=== PATIENT | female | born 1950 | race Caucasian/White ===

== ENCOUNTER 2018-03-01 11:06 | Emergency (ER) | payer OTHER ==
[2018-03-01 11:13] VITALS: TEMP 98.2; BMI 36.1
--- NOTE | 2018-03-01 11:21 | PDOC ---
History of Present Illness - History of Present Illness Initial Comments: 03/01/18 11:46 Ms. Salguero is a 67 yo female w/ pmh of Asthma, HTN, and Hypothyroid who presents for evaluation of 2 week history of left knee pain. She reports she was recently evaluated by Dr. Anne who scheduled her for an MRI next week however she decided to come in today to see if she could get one "while I am here." Ms. Salguero also describes a 2 night history of brief chest pain relieved by deep breathing. She has no pain at this time. The patient denies shortness of breath, headache and dizziness. Denies fever, chills, nausea, vomit, diarrhea and constipation. Denies dysuria, frequency, urgency and hematuria. Allergies: Amoxicillin, Penicillins <Flaco Antoine - Last Filed: 03/01/18 11:46> <Abhijit Elizabeth - Last Filed: 03/01/18 15:07> - General Chief Complaint: Chest Pain Stated Complaint: LT SWOLLEN KNEE Time Seen by Provider: 03/01/18 11:20 Past History - Past Medical History Asthma: Yes Cardiac Disorders: Yes (BLOCKAGE IN ARTERY 60%/ 5yrs ago At [facility]) COPD: No Hypercholesterolemia: Yes Kidney Stones: Yes Thyroid Disease: Yes - Surgical History Abdominal Surgery: No Appendectomy: No Cardiac Surgery: No Cholecystectomy: No Gastric Stapling: No Orthopedic Surgery: Yes - Suicide/Smoking/Psychosocial Hx Smoking Status: Yes Smoking History: Former smoker Have you smoked in the past 12 months: No Number of Cigarettes Smoked Daily: 0 If you are a former smoker, when did you quit?: 20 YRS Information on smoking cessation initiated: No Hx Alcohol Use: No Drug/Substance Use Hx: No Substance Use Type: None Hx Substance Use Treatment: No <Flaco Antoine - Last Filed: 03/01/18 11:46> <Abhijit Elizabeth - Last Filed: 03/01/18 15:07> - Past Medical History Allergies/Adverse Reactions: Allergies Allergy/AdvReac Type Severity Reaction Status Date / Time amoxicillin [Amoxicillin] Allergy Severe Rash Verified 03/01/18 11:07 Penicillins Allergy Severe Rash Verified 03/01/18 11:07 BURAK AdvReac Vomiting Uncoded 03/01/18 11:07 POLLOCK AdvReac Vomiting Uncoded 03/01/18 11:07 Home Medications: Ambulatory Orders Albuterol 2.5/Ipratropium 0.5 [Duoneb -] 1 neb IH QID 11/04/15 Amlodipine Besylate [Norvasc -] 5 mg PO DAILY 11/04/15 Aspirin [ASA -] 81 mg PO DAILY 11/04/15 Levothyroxine [Synthroid -] 88 mcg PO DAILY 11/04/15 Albuterol 0.083% Nebulizer Teresa [Ventolin 0.083% Nebulizer Soln -] 1 amp NEB Q4H PRN #1 amp 11/07/15 Review of Systems - Review of Systems Comments:: 03/01/18 12:10 GENERAL/CONSTITUTIONAL: No fever or chills. No weakness. HEAD, EYES, EARS, NOSE AND THROAT: No change in vision. No ear pain or discharge. No sore throat. CARDIOVASCULAR: +Intermittent, brief chest pain as described. No shortness of breath RESPIRATORY: No cough, wheezing, or hemoptysis. GASTROINTESTINAL: No nausea, vomiting, diarrhea or constipation. GENITOURINARY: No dysuria, frequency, or change in urination. MUSCULOSKELETAL: No joint or muscle swelling or pain. No neck or back pain. SKIN: No rash NEUROLOGIC: No headache, vertigo, loss of consciousness, or change in strength/ sensation. ENDOCRINE: No increased thirst. No abnormal weight change HEMATOLOGIC/LYMPHATIC: No anemia, easy bleeding, or history of blood clots. ALLERGIC/IMMUNOLOGIC: No hives or skin allergy. <Flaco Antoine - Last Filed: 03/01/18 11:46> *Physical Exam - Vital Signs Last Vital Signs Temp Pulse Resp BP Pulse Ox 98.2 F 77 18 165/105 100 03/01/18 11:07 03/01/18 11:07 03/01/18 11:07 03/01/18 11:07 03/01/18 11:07 - Physical Exam Comments: 03/01/18 12:10 GENERAL: Awake, alert, and fully oriented, in no acute distress HEAD: No signs of trauma, normocephalic, atraumatic EYES: PERRLA, EOMI, sclera anicteric, conjunctiva clear ENT: Auricles normal inspection, hearing grossly normal, nares patent, oropharynx clear without exudates. Moist mucosa NECK: Normal ROM, supple, no lymphadenopathy, JVD, or masses LUNGS: No distress, speaks full sentences, clear to auscultation bilaterally HEART: Regular rate and rhythm, normal S1 and S2, no murmurs, rubs or gallops, peripheral pulses normal and equal bilaterally. ABDOMEN: Soft, nontender, normoactive bowel sounds. No guarding, no rebound. No masses EXTREMITIES: +Left knee tender to palpation. Otherwise normal inspection, normal range of motion, no edema. No clubbing or cyanosis. NEUROLOGICAL: Cranial nerves II through XII grossly intact. Normal speech, normal gait, no focal sensorimotor deficits SKIN: Warm, Dry, normal turgor, no rashes or lesions noted. <Flaco Antoine - Last Filed: 03/01/18 11:46> - Vital Signs Last Vital Signs Temp Pulse Resp BP Pulse Ox 98.2 F 78 17 155/89 98 03/01/18 11:07 03/01/18 14:26 03/01/18 14:26 03/01/18 14:26 03/01/18 14:26 <Abhijit Elizabeth - Last Filed: 03/01/18 15:07> ED Treatment Course - LABORATORY CBC & Chemistry Diagram: 03/01/18 12:25 03/01/18 12:25 - ADDITIONAL ORDERS Additional order review: Laboratory Results 03/01/18 12:25 Sodium 140 Potassium 4.7 Chloride 102 Carbon Dioxide 29 Anion Gap 9 BUN 15 Creatinine 0.6 Creat Clearance w eGFR > 60 Random Glucose 86 Calcium 9.5 Total Bilirubin 0.4 AST 32 ALT 45 Alkaline Phosphatase 81 Creatine Kinase 171 Creatine Kinase Index 1.9 CK-MB (CK-2) 3.38 Troponin I < 0.02 Total Protein 7.9 Albumin 3.8 03/01/18 12:25 RBC 5.11 MCV 83.2 MCHC 32.8 RDW 16.6 H MPV 8.0 Neutrophils % 62.0 Lymphocytes % 27.4 D Monocytes % 6.9 Eosinophils % 2.6 D Basophils % 1.1 D - Medications Given in the ED: ED Medications Discontinued Medications Generic Name Dose Route Start Last Admin Trade Name Freq PRN Reason Stop Dose Admin Tramadol HCl 50 mg 03/01/18 12:12 03/01/18 12:21 Ultram - PO 03/01/18 12:13 50 mg ONCE ONE Administration <Abhijit Elizabeth - Last Filed: 03/01/18 15:07> *DC/Admit/Observation/Transfer <Flaco Antoine - Last Filed: 03/01/18 11:46> - Discharge Dispostion Decision to Admit order: No <Abhijit Elizabeth - Last Filed: 03/01/18 15:07> Diagnosis at time of Disposition: Knee pain, left Qualifiers: Chronicity: chronic Qualified Code(s): M25.562 - Pain in left knee; G89.29 - Other chronic pain Chest pain Qualifiers: Chest pain type: unspecified Qualified Code(s): R07.9 - Chest pain, unspecified - Discharge Dispostion Disposition: HOME Condition at time of disposition: Stable - Referrals Referrals: Tish Negrete MD [Primary Care Provider] - Forrest Marr MD [Staff Physician] - Eldon Anne MD [Staff Physician] - - Patient Instructions Printed Discharge Instructions: DI for Atypical Chest Pain, DI for Knee Pain Additional Instructions: Return to the emergency department immediately with ANY new, persistent or worsening symptoms. You MUST call and follow up with your doctor tomorrow for further evaluation of your symptoms. Results were discussed with you. Please make sure your doctor reviews the results of your emergency evaluation. If you had any xrays during your visit, it was read preliminarily by myself, a Radiologist will review it and if there are any additional findings we will call you. Print Language: TELUGU
--- NOTE | 2018-03-01 12:05 | PDOC ---
Attending Attestation - Resident Resident Name: Flaco Antoine - ED Attending Attestation I have performed the following: I have examined & evaluated the patient, The case was reviewed & discussed with the resident, I agree w/resident's findings & plan, Exceptions are as noted - HPI HPI: 03/01/18 15:01 67y F hx of asthma, htn, hypothyofism presents with complaint of L sided knee pain for several weeks. Pt went to urgent care and then went to dr. valdez for evaluation an dplan was an outpatient MRI, however pt came to the ED to see if she could get one. Pt also endorsed some chest pain the past 2 nights approx 11pm, lasting approx 5-10 min, relieved with stretching, no assoicated sob, diaphoresis, n/v. pt endorss some exertional cp for the past several years - typically afte rwalking up 1 flight of stairs or carrying heavy things or shovelling snow, but this has been stable, she has followed up with dr. scott for this and had a stress test last year that was neg. pt dnies any fever/chills, cough, hemoptysis, calf pain, recent injuries/falls, numbness/tinglign/weakness, abd pain, back pain, headache, dizziness. GENERAL: The patient is awake, alert, and fully oriented, Nontoxic - in no acute distress. HEAD: Normocephalic, atraumatic. EYES: extraocular movements intact, sclera anicteric, conjunctiva clear. ENT: Normal voice, Moist mucous membranes. NECK: Normal range of motion, supple LUNGS: Breath sounds equal, clear to auscultation bilaterally. No wheezes, no rhonchi, no rales. HEART: Regular rate and rhythm, normal S1 and S2 without murmur, rub or gallop. ABDOMEN: Soft, nontender, normoactive bowel sounds. No guarding, no rebound. . No CVA tenderness EXTREMITIES: Normal range of motion, no edema. no focal bony tenderness of L knee, neg homas NEUROLOGICAL: No facial assymetry, Normal speech, PSYCH: Normal mood, normal affect. SKIN: Warm, Dry, normal turgor, Suspect possible arthritis, will have the patient follow-up with orthopedics for further evaluation of her knee. Patient's chest pain seems atypical we'll obtain troponin 1 and ekg as pain >6 hrs ago trop x 1 neg, ekg wnl will dc with ortho and card fu return precautions were discussed Heart Score/ECG Review - ECG Impressions Comment:: 03/01/18 15:06 Twelve-lead EKG was performed and reviewed by me. There is normal sinus rhythm with a normal rate. Rate of 71 left axis deviation Abnormal R wave progression
[2018-03-01] MEDS ORDERED: traMADol HCL 50 MG TABLET PO ONE (12:12)
[2018-03-01] MEDS ORDERED: traMADol HCL 50 MG TABLET ONE (12:18)
[2018-03-01 12:31] LABS: BASO % 1.1 % (0-2.0); EOS % 2.6 % (0-4.5); HEMATOCRIT 42.5 % (32.4-45.2); HEMOGLOBIN 13.9 GM/dL (10.7-15.3); LYMPH % 27.4 % (8-40); MCH 27.3 pg (25.7-33.7); MCHC 32.8 g/dl (32.0-36.0); MEAN CELL VOLUME 83.2 fl (80-96); MONO % 6.9 % (3.8-10.2); PLATELET COUNT 239 K/MM3 (134-434); RBC 5.11 M/mm3 (3.60-5.2); RDW 16.6 % (11.6-15.6); WHITE BLOOD COUNT 9.2 K/mm3 (4.0-10.0)
[2018-03-01 13:02] LABS: CHLORIDE 102 mmol/L (98-107); POTASSIUM 4.7 mmol/L (3.5-5.1); SODIUM 140 mmol/L (136-145)
[2018-03-01 13:23] LABS: ALBUMIN 3.8 g/dl (3.4-5.0); ALK PHOS 81 U/L (45-117); ANION GAP 9 (8-16); BILIRUBIN,TOTAL 0.4 mg/dL (0.2-1.0); BLOOD UREA NITROGEN 15 mg/dL (7-18); CALCIUM 9.5 mg/dL (8.5-10.1); CO2 29 mmol/L (21-32); CREATININE 0.6 mg/dL (0.55-1.02); GLUCOSE,RANDOM 86 mg/dL (74-106); SGOT/AST 32 U/L (15-37); SGPT/ALT 45 U/L (12-78); TOT PROT 7.9 g/dl (6.4-8.2)
[2018-03-01 14:27] VITALS: BP 155/89; PULSE 78
--- NOTE | 2018-03-01 16:10 | EKG ---
Test Reason : Blood Pressure : / mmHG Vent. Rate : 071 BPM Atrial Rate : 071 BPM P-R Int : 160 ms QRS Dur : 092 ms QT Int : 412 ms P-R-T Axes : 059 -42 019 degrees QTc Int : 447 ms NORMAL SINUS RHYTHM WITH SINUS ARRHYTHMIA LEFT AXIS DEVIATION INFERIOR INFARCT (CITED ON OR BEFORE 02-MAY-2006) ANTERIOR INFARCT (CITED ON OR BEFORE 06-AUG-2002) ABNORMAL ECG WHEN COMPARED WITH ECG OF 01-MAR-2018 11:19, PREVIOUS ECG HAS UNDETERMINED RHYTHM, NEEDS REVIEW Confirmed by JANETT RAMIREZ MD ([id number]) on 03/01/2018 4:10:31 PM Referred By: Confirmed By:JANETT RAMIREZ MD
--- NOTE | 2018-03-02 10:30 | EKG ---
Test Reason : Blood Pressure : / mmHG Vent. Rate : 071 BPM Atrial Rate : 220 BPM P-R Int : 158 ms QRS Dur : 096 ms QT Int : 402 ms P-R-T Axes : 061 -42 028 degrees QTc Int : 436 ms POOR DATA QUALITY, INTERPRETATION MAY BE ADVERSELY AFFECTED NORMAL SINUS RHYTHM LEFT AXIS DEVIATION INFERIOR INFARCT (CITED ON OR BEFORE 02-MAY-2006) ANTERIOR INFARCT (CITED ON OR BEFORE 06-AUG-2002) ABNORMAL ECG Confirmed by JENNIFER IVEY MD ([id number]) on 03/02/2018 10:30:08 AM Referred By: Confirmed By:JENNIFER IVEY MD
== END 2018-03-01 15:17 | disposition home or self-care (01) ==
LOC: JER 11:06
DX: M25.562 Pain in left knee (principal); R07.89 Other chest pain; I10 Essential (primary) hypertension; E78.00 Pure hypercholesterolemia, unspecified; J45.909 Unspecified asthma, uncomplicated; E03.9 Hypothyroidism, unspecified; Z87.891 Personal history of nicotine dependence
CPT/HCPCS: 36415; 80053; 82550; 82553; 84484; 85025; 93005; 93010; 99284-25

== ENCOUNTER 2018-03-24 06:02 | Inpatient (IN) | payer OTHER ==
[2018-03-24 06:25] VITALS: BMI 35.2
[2018-03-24] MEDS ORDERED: ACETAMINOPHEN 325 MG TABLET (FP) ONE (06:28)
[2018-03-24] MEDS ORDERED: SODIUM CHLORIDE 0.9% 1000 ML INFUS.BAG IV STA (06:35)
--- NOTE | 2018-03-24 06:47 | PDOC ---
History of Present Illness - General Chief Complaint: Pain Stated Complaint: ABD PAIN Time Seen by Provider: 03/24/18 06:34 History Source: Patient Exam Limitations: No Limitations - History of Present Illness Initial Comments: This is a 67 YOF with h/o HTN, HLD, CAD, kidney stones, asthma, and hypothyroidism who p/w non-radiating constant right>left lower abdominal cramping which occasionally becomes severe and has twinges of sharper epigastric pain for the past three days. This pain is alongside malaise, constipation, abdominal distentions, and inability to pass gas for the past three days, nausea, fever since last night. She describes not being able to have a bowel movement for several days until this morning when she had three small loose stools which were non-black and non-bloody. She tried Milk of Magnesia last night for the constipation, and Tylenol for the fever. She has never had symptoms like this before in her life. Her PCP is Dr. Negrete, technical project manager is Dr. Marr, orthopedist is Dr. Anne. Past History - Past Medical History Allergies/Adverse Reactions: Allergies Allergy/AdvReac Type Severity Reaction Status Date / Time amoxicillin [Amoxicillin] Allergy Severe Rash Verified 03/24/18 06:24 Penicillins Allergy Severe Rash Verified 03/24/18 06:24 BURAK AdvReac Vomiting Uncoded 03/24/18 06:24 POLLOCK AdvReac Vomiting Uncoded 03/24/18 06:24 Home Medications: Ambulatory Orders Albuterol 2.5/Ipratropium 0.5 [Duoneb -] 1 neb IH QID 11/04/15 Amlodipine Besylate [Norvasc -] 5 mg PO DAILY 11/04/15 Aspirin [ASA -] 81 mg PO DAILY 11/04/15 Levothyroxine [Synthroid -] 88 mcg PO DAILY 11/04/15 Albuterol 0.083% Nebulizer Teresa [Ventolin 0.083% Nebulizer Soln -] 1 amp NEB Q4H PRN #1 amp 11/07/15 Asthma: Yes Cardiac Disorders: Yes (BLOCKAGE IN ARTERY 60%/ 5yrs ago At [facility]) COPD: No Hypercholesterolemia: Yes Kidney Stones: Yes Thyroid Disease: Yes - Surgical History Abdominal Surgery: No Appendectomy: No Cardiac Surgery: No Cholecystectomy: No Gastric Stapling: No Orthopedic Surgery: Yes - Suicide/Smoking/Psychosocial Hx Smoking Status: Yes Smoking History: Former smoker Have you smoked in the past 12 months: No Number of Cigarettes Smoked Daily: 0 If you are a former smoker, when did you quit?: 20yrs ago Information on smoking cessation initiated: No Hx Alcohol Use: No Drug/Substance Use Hx: No Substance Use Type: None Hx Substance Use Treatment: No Review of Systems - Review of Systems Able to Perform ROS?: Yes Constitutional: Yes: Chills, Fever, Malaise. No: Unexplained wgt Loss HEENTM: No: Nose Congestion, Throat Pain Respiratory: No: Cough, Shortness of Breath Cardiac (ROS): No: Chest Pain, Palpitations ABD/GI: Yes: Abdominal Distended, Constipated, Nausea, Other (lower abdominal pain/cramping, obstipation). No: Diarrhea, Rectal Bleeding, Vomiting : No: Burning, Dysuria Musculoskeletal: No: Back Pain, Neck Pain Integumentary: No: Bruising, Rash Neurological: No: Headache, Numbness, Tingling, Weakness, Dizziness Endocrine: No: Unexplained Weight Gain, Unexplained Weight Loss *Physical Exam - Vital Signs Last Vital Signs Temp Pulse Resp BP Pulse Ox 102.0 F H 120 H 18 168/84 97 03/24/18 06:23 03/24/18 06:23 03/24/18 06:23 03/24/18 06:23 03/24/18 06:23 - Physical Exam General Appearance: Yes: Nourished, Appropriately Dressed, Other (alert, oriented, uncomfortable appearing adult female who answers questions appropriately). No: Apparent Distress HEENT: positive: EOMI, Normal Voice, Hearing Grossly Normal, Other (right cataract, dry mucous membranes). negative: Scleral Icterus (R), Scleral Icterus (L), Nasal Congestion Neck: positive: Trachea midline, Supple. negative: Tender, Rigid Respiratory/Chest: positive: Lungs Clear, Normal Breath Sounds, Wheezing (mild bilateral expiratory wheezes). negative: Respiratory Distress, Crackles, Rhonchi, Stridor Cardiovascular: positive: Regular Rhythm, Regular Rate, S1, S2. negative: Edema , JVD, Murmur Gastrointestinal/Abdominal: positive: Normal Bowel Sounds, Tender (Diffuse lower abdominal ttp including McBurney's point), Soft. negative: Organomegaly, Pulsatile Mass, Guarding Musculoskeletal: positive: Normal Inspection. negative: CVA Tenderness, Decreased Range of Motion, Vertebral Tenderness Extremity: positive: Normal Capillary Refill, Normal Inspection, Normal Range of Motion. negative: Tender, Cyanosis Integumentary: positive: Normal Color, Dry, Warm. negative: Erythema, Diaphoresis, Rash, Bruising Neurologic: positive: industrial custodian II-XII NML intact (grossly), Fully Oriented, Alert, Normal Mood/Affect, Normal Response, Motor Strength 01/27 ED Treatment Course - LABORATORY CBC & Chemistry Diagram: 03/25/18 10:38 03/25/18 06:00 - RADIOLOGY Radiology Studies Ordered: Category Date Time Status CHEST X-RAY PORTABLE* [RAD] Stat Radiology 03/24/18 06:35 Ordered Medical Decision Making - Medical Decision Making 03/24/18 07:02 Adult female Pt p/w diffuse lower abdominal pain, constipation until small diarrhea x3 this AM, obstipation, nausea, fever, malaise. Initial Vital Signs Temp Pulse Resp BP Pulse Ox 102.0 F H 120 H 18 168/84 97 03/24/18 06:23 03/24/18 06:23 03/24/18 06:23 03/24/18 06:23 03/24/18 06:23 Exam: uncomfortable, abdomen distended, diffuse lower abdominal ttp incl McBurney's point, no guarding or rigidity. DDX IBNLT: UTI/pyelonephritis, renal colic, appendicitis, colitis, SBO, bowel ischemia, bowel perforation, biliary obstruction, cholecystitis, cholangitis, constipation, ACS, AAA/AD, malignancy, hernia, cholecystitis, pancreatitis, gastritis, PUD, regional ileitis (Crohns disease), musculoskeletal, etc. W/U ordered: CBCD CMP Mg Coags T&S VBG Cardiac panel Lactate BCx UA UCx Lipase EKG CXR CTAP w/ IV and PO TX ordered: IVF, Ofirmev, Zofran. Patient's care is endorsed to Dr. Antoine at the end of my shift. *DC/Admit/Observation/Transfer Diagnosis at time of Disposition: SIRS (systemic inflammatory response syndrome), Nausea Abdominal pain Qualifiers: Abdominal location: unspecified location Qualified Code(s): R10.9 - Unspecified abdominal pain Constipation Qualifiers: Constipation type: unspecified constipation type Qualified Code(s): K59.00 - Constipation, unspecified Appendicitis Qualifiers: Appendicitis type: acute appendicitis Acute appendicitis type: with localized peritonitis Qualified Code(s): K35.3 - Acute appendicitis with localized peritonitis - Discharge Dispostion Condition at time of disposition: Guarded Decision to Admit order: Yes - Referrals - Patient Instructions - Post Discharge Activity
[2018-03-24] MEDS ORDERED: ONDANSETRON 4 MG/2 ML VIAL IVPUSH ONE (06:48)
--- NOTE | 2018-03-24 07:02 | PDOC ---
*Physical Exam - Vital Signs Last Vital Signs Temp Pulse Resp BP Pulse Ox 102.0 F H 120 H 18 168/84 97 03/24/18 06:23 03/24/18 06:23 03/24/18 06:23 03/24/18 06:23 03/24/18 06:23 ED Treatment Course - LABORATORY CBC & Chemistry Diagram: 03/24/18 06:45 03/24/18 06:45 Medical Decision Making - Medical Decision Making 03/24/18 07:[address] Coburn for further evaluation. 03/24/18 10:38 Patient is a 67 yo female w/ pmh of HTN, HLD, CAD, nephrolithiasis, asthma, and hypothyroidism who presents for evaluation of right sided abdominal pain for the last 3 days. Patient had concurrent constipation and inability to pass gas for 3 days before taking milk of magnesia and having episode of small loose stool this morning. Currently patient pending CT abdomen/pelvis w/ PO and IV contrast. 4mg IV morphine given for pain control. 03/24/18 11:48 Patient noted to have acute appendicitis on CT. Gen Surgery and PCP consulted for admission / surgery consult. Levo/Flagyl started for treatment. 03/24/18 12:[address] Mcmanus (gen surg) who will evaluate. 03/24/18 13:[address] Bearden for admission. Patient admitted for further evaluation. *DC/Admit/Observation/Transfer Diagnosis at time of Disposition: SIRS (systemic inflammatory response syndrome), Nausea Abdominal pain Qualifiers: Abdominal location: unspecified location Qualified Code(s): R10.9 - Unspecified abdominal pain Constipation Qualifiers: Constipation type: unspecified constipation type Qualified Code(s): K59.00 - Constipation, unspecified Appendicitis Qualifiers: Appendicitis type: acute appendicitis Acute appendicitis type: unspecified acute appendicitis type Qualified Code(s): K35.80 - Unspecified acute appendicitis - Discharge Dispostion Decision to Admit order: Yes - Referrals Referrals: Tish Negrete MD [Primary Care Provider] - - Patient Instructions - Post Discharge Activity
--- NOTE | 2018-03-24 07:16 | PDOC ---
Attending Attestation - Resident Resident Name: Flaco Antoine - ED Attending Attestation I have performed the following: I have examined & evaluated the patient, The case was reviewed & discussed with the resident, I agree w/resident's findings & plan, Exceptions are as noted - HPI HPI: 03/24/18 07:28 67y F hx of htn, hl, cad, kidney stones, asthma, hypothyroidism, presents with lower abdominal pain that is cramping in nature x 3 days, associated with nausea w/o vmiting. originally associated with constipation but no better after she had some milk of magnesia and finally had a BM. Pt developed a fever lsat night. She denies any diarrhea, dysuria, but notes some vagial pain as she wipes. Denies any cough, sob, cp, back pain, headache. GENERAL: The patient is awake, alert, and fully oriented, Nontoxic - in no acute distress. HEAD: Normocephalic, atraumatic. EYES: extraocular movements intact, sclera anicteric, conjunctiva clear. ENT: Normal voice, Moist mucous membranes. NECK: Normal range of motion, supple LUNGS: Breath sounds equal, clear to auscultation bilaterally. No wheezes, no rhonchi, no rales. HEART: Regular rate and rhythm, normal S1 and S2 without murmur, rub or gallop. ABDOMEN: slightly distended, mild lower abdominal tenderness R>L, no rebound/ guarding, no CVA tenderness EXTREMITIES: Normal range of motion, no edema. no calf tenderness NEUROLOGICAL: No facial assymetry, Normal speech, PSYCH: Normal mood, normal affect. SKIN: Warm, Dry, normal turgor, ddx: appendicitis, obstruction, uti will ck ct abdomen, lab work, ua will reassess - Physicial Exam PE: 03/25/18 09:25 see above - Medical Decision Making 03/24/18 11:[address] noted for appendicitis will treat with abx, and consult surgery 03/24/18 13:[address] Bearden - agree with admission for further managment Case discussed in detail with admitting physician including history, physical exam and ancillary studies. Admitting physician has assumed care for the patient, will follow all pending diagnostics and will complete the evaluation and treatment. Heart Score/ECG Review - ECG Impressions Comment:: 03/24/18 11:22 Twelve-lead EKG was performed and reviewed by me. There is normal sinus rhythm with a rate of 107 Left axis deviation Q waves in the inferior leads Abnormal R wave progression Oh significant changes when compared with prior EKG from mar 01 2018
[2018-03-24 07:17] LABS: BASO % 0.5 % (0-2.0); EOS % 0.2 % (0-4.5); HEMATOCRIT 39.3 % (32.4-45.2); HEMOGLOBIN 13.1 GM/dL (10.7-15.3); LYMPH % 6.3 % (8-40); MCH 27.3 pg (25.7-33.7); MCHC 33.3 g/dl (32.0-36.0); MEAN PLT VOLUME 8.2 fl (7.5-11.1); MONO % 7.6 % (3.8-10.2); NEUT % 85.4 % (42.8-82.8); PLATELET COUNT 200 K/MM3 (134-434); RBC 4.79 M/mm3 (3.60-5.2); RDW 16.3 % (11.6-15.6); WHITE BLOOD COUNT 21.1 K/mm3 (4.0-10.0)
[2018-03-24 07:18] LABS: URINE APPEARANCE CLEAR; URINE BILIRUBIN NEGATIVE (<2.0 mg/dL); URINE COLOR YELLOW; URINE GLUCOSE (UA) NEGATIVE (NEGATIVE); URINE KETONE TRACE (NEGATIVE); URINE LEUK ESTERASE NEGATIVE (NEGATIVE); URINE NITRITE NEGATIVE (NEGATIVE); URINE UROBILINOGEN NEGATIVE mg/dL (0.2-1.0)
[2018-03-24 07:20] LABS: VENOUS PC02 36.4 mmHg (38-52); VENOUS PH 7.48 (7.32-7.42); VENOUS PO2 57.7 mmHg (28-48)
[2018-03-24] MEDS ORDERED: ACETAMINOPHEN 500 MG TABLET (FP) PO ONE (07:23)
[2018-03-24 07:26] LABS: URINE PROTEIN 1+ (NEGATIVE)
[2018-03-24 07:27] LABS: EPI CELLS RARE /HPF (FEW); URINE MUCUS RARE
[2018-03-24 07:39] LABS: INR 1.06 (0.82-1.09)
[2018-03-24 07:42] LABS: ACTIVATED PTT 27.6 SECONDS (25.2-36.5)
[2018-03-24 07:50] LABS: ALBUMIN 3.2 g/dl (3.4-5.0); ANION GAP 9 (8-16); BILIRUBIN,TOTAL 0.8 mg/dL (0.2-1.0); BLOOD UREA NITROGEN 10 mg/dL (7-18); CALCIUM 8.4 mg/dL (8.5-10.1); CHLORIDE 99 mmol/L (98-107); CO2 25 mmol/L (21-32); CREATININE 0.7 mg/dL (0.55-1.02); GLUCOSE,RANDOM 134 mg/dL (74-106); SGPT/ALT 21 U/L (12-78); SODIUM 133 mmol/L (136-145); TOT PROT 7.4 g/dl (6.4-8.2)
[2018-03-24 07:53] LABS: ALK PHOS 86 U/L (45-117)
[2018-03-24 07:56] LABS: LIPASE 96 U/L (73-393)
[2018-03-24 07:57] LABS: POTASSIUM 3.8 mmol/L (3.5-5.1); SGOT/AST 23 U/L (15-37)
[2018-03-24] MEDS ORDERED: morphine CARPU-JECT 4 MG/1 ML DISP.SYRIN IVPUSH ONE (08:10)
[2018-03-24] MEDS ORDERED: morphine SULFATE 4 MG/ML VIAL ONE (08:13)
--- NOTE | 2018-03-24 09:29 | EKG ---
Test Reason : Blood Pressure : / mmHG Vent. Rate : 107 BPM Atrial Rate : 107 BPM P-R Int : 170 ms QRS Dur : 086 ms QT Int : 350 ms P-R-T Axes : 051 -43 019 degrees QTc Int : 467 ms SINUS TACHYCARDIA POSSIBLE LEFT ATRIAL ENLARGEMENT LEFT AXIS DEVIATION CANNOT RULE OUT INFERIOR INFARCT , AGE UNDETERMINED POOR R WAVE PROGRESSION ABNORMAL ECG Confirmed by JENNIFER IVEY MD ([id number]) on 03/24/2018 9:28:42 AM Referred By: Confirmed By:JENNIFER IVEY MD
[2018-03-24] MEDS ORDERED: ONDANSETRON 4 MG/2 ML VIAL IVPUSH PRN ×2 (13:28→17:18)
[2018-03-24] MEDS ORDERED: LACTATED RINGERS SOLUTION 1,000 ML IV SCH (13:30)
[2018-03-24] MEDS ORDERED: ACETAMINOPHEN 1000 MG/100 ML VIAL (NON FORMULARY) IVPB ONE (13:35)
[2018-03-24] MEDS ORDERED: MIDAZOLAM HCL 2 MG/2 ML SINGLE DOSE VIAL ONE (13:37)
[2018-03-24] MEDS ORDERED: ONDANSETRON 4 MG/2 ML VIAL ONE (13:41)
[2018-03-24] MEDS ORDERED: DEXAMETHASONE SOD PHOSPHATE 4 MG/1 ML VIAL ONE (13:41)
[2018-03-24] MEDS ORDERED: KETOROLAC TROMETHAMINE 30 MG/1 ML VIAL ONE (13:41)
[2018-03-24] MEDS ORDERED: ROCURONIUM BROMIDE 50 MG/5 ML VIAL ONE ×2 (13:42→15:34)
[2018-03-24] MEDS ORDERED: ACETAMINOPHEN INJECTION 100 ML IVPB ONE (13:44)
--- NOTE | 2018-03-24 13:45 | CONSULT ---
Consult Consult Specialty:: General Surgery Reason for Consultation:: Acute appendicitis - History of Present Illness Chief Complaint: Abdominal pain with nausea vomiting and diarrhea. History of Present Illness: I was askked to evaluate this 67 year old female with a PMHx sig for HTN, Asthma , Hypothyroidism presented to ED c/o approx. 24 hours of right sided abdominal pain associated with nausea and vomiting. Originally she was c/o constipation which evolved into diarrhea. Denies other G.I./G.U. symptoms. In ED she was found to be febrile to 102 F, tachycardic with normal BP and an elevated WBC with significant RLQ tenderness. She responded to fluids and a CT scan was ordered which revealed and advanced acute appendicitis, with severe ramon-appendiceal fat stranding and a dilated and circumstantially inflamed and thickened appendix, no abscess, no free air, no other sig. findings except gallstones but otherwise a normal gallbladder. - History Source History Provided By: Patient Limitations to Obtaining History: No Limitations - Past Medical History Cardio/Vascular: Yes: HTN Pulmonary: Yes: Asthma Gastrointestinal: Yes: Constipation Endocrine: Yes: Hypothyroidism - Past Surgical History Past Surgical History: Yes: None - Alcohol/Substance Use Hx Alcohol Use: No - Smoking History Smoking history: Former smoker Have you smoked in the past 12 months: No Aproximately how many cigarettes per day: 0 If you are a former smoker, when did you quit?: 20yrs ago - Social History ADL: Independent History of Recent Travel: No Home Medications - Allergies Allergies/Adverse Reactions: Allergies Allergy/AdvReac Type Severity Reaction Status Date / Time amoxicillin [Amoxicillin] Allergy Severe Rash Verified 03/24/18 06:24 Penicillins Allergy Severe Rash Verified 03/24/18 06:24 BURAK AdvReac Vomiting Uncoded 03/24/18 06:24 POLLOCK AdvReac Vomiting Uncoded 03/24/18 06:24 - Home Medications Home Medications: Ambulatory Orders Albuterol 2.5/Ipratropium 0.5 [Duoneb -] 1 neb IH QID 11/04/15 Amlodipine Besylate [Norvasc -] 5 mg PO DAILY 11/04/15 Aspirin [ASA -] 81 mg PO DAILY 11/04/15 Levothyroxine [Synthroid -] 88 mcg PO DAILY 11/04/15 Albuterol 0.083% Nebulizer Teresa [Ventolin 0.083% Nebulizer Soln -] 1 amp NEB Q4H PRN #1 amp 11/07/15 Family Disease History - Family Disease History Family Disease History: Heart Disease: Mother, [place]: Father Review of Systems - Review of Systems Constitutional: reports: Chills, Fever Eyes: denies: Blurred Vision, Photophobia HENT: denies: Difficult Swallowing, Throat Pain Neck: denies: Decreased ROM, Pain on Movement Respiratory: reports: Exercise Intolerance. denies: Wheezing Gastrointestinal: reports: Abdominal Pain (Right sided worse in RLQ), Diarrhea, Nausea, Vomiting. denies: Constipation Genitourinary: denies: Burning, Dysuria Musculoskeletal: denies: Back Pain, Joint Swelling Integumentary: denies: Bruising, Pruritis Neurological: denies: Change in Speech, Confusion Endocrine: denies: Excessive Sweating, Unexplained Weight Gain Hematology/Lymphatic: denies: Easily Bruised Psychiatric: denies: Hallucinations Physical Exam Vital Signs: Vital Signs Temperature 99.7 F H 03/24/18 08:20 Pulse Rate 98 H 03/24/18 08:20 Respiratory Rate 18 03/24/18 06:23 Blood Pressure 103/60 03/24/18 08:20 O2 Sat by Pulse Oximetry (%) 97 03/24/18 06:23 Constitutional: Yes: Well Nourished, No Distress, Calm, Obese Eyes: Yes: Conjunctiva Clear, EOM Intact HENT: Yes: Atraumatic, Normocephalic Neck: Yes: Supple, Trachea Midline Cardiovascular: Yes: Regular Rate and Rhythm. No: Tachycardia Respiratory: Yes: Regular, CTA Bilaterally Gastrointestinal: Yes: Normal Bowel Sounds, Abdomen, Obese, Tenderness ( Significant RLQ tenderness with localized rebound), Tenderness, Rebound ( localized to RLQ). No: Hernia ...Rectal Exam: No: Deferred Renal/: No: Bladder Distention, Solorio Present Musculoskeletal: No: Joint Swelling, Muscle Weakness Extremities: No: Cool, Cyanosis Edema: Yes (slight Bilat.) Integumentary: No: Erythema, Rash Neurological: Yes: Alert, Oriented Labs: CBC, BMP 03/24/18 06:45 03/24/18 06:45 Imaging - Results Chest X-ray: Report Reviewed (No acute chest pathology) Cat Scan: Image Reviewed (CT scan reviewed by me personally revealed and advanced acute appendicitis, with severe ramon-appendiceal fat stranding and a dilated and circumstantially inflamed and thickened appendix, no abscess, no free air, no other sig. findings except gallstones but otherwise a normal gallbladder) EKG: Report Reviewed Problem List - Problems (1) Appendicitis Assessment/Plan: 67 yo vida with clinical and radiological evidence of advanced acute appendicitis. Vitals now stabilized with fluid resuscitation, IV Abx given. Will take to OR for emergent laparoscopic appendectomy. Discussed with patient risks, benefits and alternatives of laparoscopic possible open ectomy, including but not limited to bleeding, infection, injury to adjacent structures, leak or injury, intraabdominal abscess, need for further procedures, ; alternatives include antibiotics, delayed or no surgery - risks of this include failure of nonoperative therapy, perforation, sepsis, recurrence, . Patient desires to proceed with operation - will take to OR for above. Informed consent signed for same. Code(s): K37 - UNSPECIFIED APPENDICITIS Qualifiers: Appendicitis type: acute appendicitis Acute appendicitis type: with localized peritonitis Qualified Code(s): K35.3 - Acute appendicitis with localized peritonitis (2) Abdominal pain Assessment/Plan: Abdominal pain somewhat improved with IV paind medication in the ED. Abdomen still with sig RLQ tenderness and localized rebound all c/w acute appendicits. Patient to go to OR emergently for lap appendectomy. Code(s): R10.9 - UNSPECIFIED ABDOMINAL PAIN Qualifiers: Abdominal location: unspecified location Qualified Code(s): R10.9 - Unspecified abdominal pain (3) Nausea Assessment/Plan: Patient c/o severe nausea resolved with antiemetic medication given in the ED Code(s): R11.0 - NAUSEA (4) Vomiting and diarrhea Assessment/Plan: Patient c/o vomiting and diarhhea now resolved in ED. Code(s): R11.10 - VOMITING, UNSPECIFIED; R19.7 - DIARRHEA, UNSPECIFIED
[2018-03-24] MEDS ORDERED: BUPIVACAINE HCL/PF 0.5% (5MG/ML) 10 ML VIAL ONE ×2 (14:27→16:19)
[2018-03-24] MEDS ORDERED: PROPOFOL 20 ML ONE (15:30)
[2018-03-24] MEDS ORDERED: GLYCOPYRROLATE 0.2 MG/1 ML VIAL ONE (16:13)
[2018-03-24] MEDS ORDERED: NEOSTIGMINE METHYLSULFATE 0.5 MG/ML - 10 ML MDV ONE (16:13)
[2018-03-24] MEDS ORDERED: BENZOIN/ALOE VERA/STORAX/TOLU 58 ML BOTTLE ONE (16:25)
[2018-03-24] MEDS ORDERED: ACETAMINOPHEN 1000 MG/100 ML VIAL (NON FORMULARY) IVPB PRN (16:36)
--- NOTE | 2018-03-24 16:47 | OP ---
Operative Note - Note: Operative Date: 03/24/18 Pre-Operative Diagnosis: acute appendicits Operation: laparoscopic appendectomy Findings: gangrenous perforated appendicits with ramon-appendiceal abscess Post-Operative Diagnosis: Other (perforated appendicits with abscess) Surgeon: Keyshawn Mcmanus Air [employer] Officer: James Ha Anesthesiologist/PROJECT COACH: Forrest Oliva Anesthesia: General Specimens Removed: appendix Estimated Blood Loss (mls): 10 Drains, Volume Out (mls): 300 Fluid Volume Replaced (mls): 1,500 Operative Report Dictated: Yes
[2018-03-24] MEDS ORDERED: BUPIVACAINE HCL/PF 0.5% (5MG/ML) 10 ML VIAL IJ ONE (16:49)
[2018-03-24] MEDS: LACTATED RINGERS SOLUTION 1,000 ML/1,000 ML INFUS.BAG IV SCH (18:20)
[2018-03-24] MEDS: ACETAMINOPHEN 1000 MG/100 ML VIAL (NON FORMULARY) IVPB PRN (23:05)
[2018-03-25] MEDS: LACTATED RINGERS SOLUTION 1,000 ML/1,000 ML INFUS.BAG IV SCH ×3 (05:24→20:33)
[2018-03-25] MEDS: LEVOTHYROXINE NA 88 MCG TABLET (FP) PO SCH (06:10)
[2018-03-25 07:14] LABS: BASO % 0.4 % (0-2.0); HEMATOCRIT 37.3 % (32.4-45.2); HEMOGLOBIN 12.2 GM/dL (10.7-15.3); LYMPH % 8.6 % (8-40); MCH 27.3 pg (25.7-33.7); MCHC 32.6 g/dl (32.0-36.0); MEAN CELL VOLUME 83.7 fl (80-96); MEAN PLT VOLUME 8.6 fl (7.5-11.1); PLATELET COUNT 191 K/MM3 (134-434); RBC 4.45 M/mm3 (3.60-5.2); RDW 16.3 % (11.6-15.6); WHITE BLOOD COUNT 18.7 K/mm3 (4.0-10.0)
[2018-03-25 07:51] LABS: CHLORIDE 102 mmol/L (98-107); POTASSIUM 4.3 mmol/L (3.5-5.1); SODIUM 140 mmol/L (136-145)
[2018-03-25 07:58] LABS: ALBUMIN 2.6 g/dl (3.4-5.0); ALK PHOS 72 U/L (45-117); ANION GAP 9 (8-16); BILIRUBIN,TOTAL 0.6 mg/dL (0.2-1.0); BLOOD UREA NITROGEN 9 mg/dL (7-18); CALCIUM 8.3 mg/dL (8.5-10.1); CO2 29 mmol/L (21-32); CREATININE 0.9 mg/dL (0.55-1.02); GLUCOSE,RANDOM 121 mg/dL (74-106); SGOT/AST 14 U/L (15-37); SGPT/ALT 17 U/L (12-78); TOT PROT 6.7 g/dl (6.4-8.2)
[2018-03-25 10:54] LABS: BASO % 0.4 % (0-2.0); HEMATOCRIT 37.7 % (32.4-45.2); HEMOGLOBIN 12.1 GM/dL (10.7-15.3); LYMPH % 9.4 % (8-40); MCH 26.7 pg (25.7-33.7); MCHC 32.2 g/dl (32.0-36.0); MEAN CELL VOLUME 82.9 fl (80-96); MEAN PLT VOLUME 8.5 fl (7.5-11.1); MONO % 5.1 % (3.8-10.2); NEUT % 85.1 % (42.8-82.8); PLATELET COUNT 203 K/MM3 (134-434); RBC 4.54 M/mm3 (3.60-5.2); RDW 15.9 % (11.6-15.6)
[2018-03-25] MEDS: ACETAMINOPHEN 1000 MG/100 ML VIAL (NON FORMULARY) IVPB PRN ×2 (11:16→20:25)
[2018-03-25 11:41] LABS: GLUCOSE,RANDOM 127 mg/dl (74-106)
[2018-03-25 11:42] LABS: ALBUMIN 2.6 g/dl (3.5-5.0); ANION GAP 8 (8-16); BILIRUBIN,TOTAL 0.5 mg/dl (0.2-1.0); BLOOD UREA NITROGEN 9 mg/dl (7-18); CALCIUM 8.1 mg/dl (8.4-10.2); CHLORIDE 103 mmol/L (98-107); CO2 28 mmol/L (22-28); CREATININE 0.8 mg/dl (0.6-1.3); POTASSIUM 3.9 mmol/L (3.5-5.1); SGOT/AST 11 U/L (10-42); SODIUM 139 mmol/L (136-145); TOT PROT 6.5 g/dl (6.4-8.3)
[2018-03-25 11:43] LABS: ALK PHOS 73 U/L (32-92); SGPT/ALT 17 U/L (10-40)
--- NOTE | 2018-03-25 13:25 | PN ---
Progress Note (short form) - Note Progress Note: Patient is POD#1 s/p laparoscopic appendectomy fora perforated gangrenous appendix with ramon-appendiceal abscess. Overnight patient c/o of "bloating' but denies nausea, no vomiting, no BM's. Today patient c/o incisional pain, severe "bloating", not passing flatus/BM's but tolerating clears. Vitals reveal slight tacycardia and low grade fever to 99F. Patient using IS well and ambulating without issues. Exam reveals distended abdomen, hypoactive BS's, wound dressings dry intact, only scant pedal edema. On exam of LE's I noticed swelling and calor of the left upper leg in distinct comparison to the Right LE. no tenderness. Patient denies knee pain nor thigh pain. Due to the length and difficulty of the laparoscopic surgery, patient is certainly at risk for a DVT. As the knee itself is not warm and no decrease in ROM, no pain, ambulating well, I doubt a septic knee. Will order STAT Left LE Venous Dopplers. Continue IV fluids, IV Abx, clear diet, ambulate. Problem List - Problems (1) Appendicitis Code(s): K37 - UNSPECIFIED APPENDICITIS Qualifiers: Appendicitis type: acute appendicitis Acute appendicitis type: with localized peritonitis Qualified Code(s): K35.3 - Acute appendicitis with localized peritonitis (2) Abdominal pain Code(s): R10.9 - UNSPECIFIED ABDOMINAL PAIN Qualifiers: Abdominal location: unspecified location Qualified Code(s): R10.9 - Unspecified abdominal pain (3) Nausea Code(s): R11.0 - NAUSEA (4) Vomiting and diarrhea Code(s): R11.10 - VOMITING, UNSPECIFIED; R19.7 - DIARRHEA, UNSPECIFIED
--- NOTE | 2018-03-25 14:07 | HP ---
Admitting History and Physical - Admission History of Present Illness: admitted with abdominal pain and was taken to the OR and noted to have a perforated appendix c/o bloating - Past Medical History Cardiovascular: Yes: HTN Pulmonary: Yes: Asthma Gastrointestinal: Yes: Constipation Endocrine: Yes: Hypothyroidism - Past Surgical History Past Surgical History: Yes: None - Smoking History Smoking history: Former smoker Have you smoked in the past 12 months: No Aproximately how many cigarettes per day: 0 If you are a former smoker, when did you quit?: 20yrs ago - Alcohol/Substance Use Hx Alcohol Use: No - Social History ADL: Independent History of Recent Travel: No Home Medications - Allergies Allergies/Adverse Reactions: Allergies Allergy/AdvReac Type Severity Reaction Status Date / Time amoxicillin [Amoxicillin] Allergy Severe Rash Verified 03/24/18 06:24 Penicillins Allergy Severe Rash Verified 03/24/18 06:24 BURAK AdvReac Vomiting Uncoded 03/24/18 06:24 POLLOCK AdvReac Vomiting Uncoded 03/24/18 06:24 - Home Medications Home Medications: Ambulatory Orders Albuterol 2.5/Ipratropium 0.5 [Duoneb -] 1 neb IH QID 11/04/15 Amlodipine Besylate [Norvasc -] 5 mg PO DAILY 11/04/15 Aspirin [ASA -] 81 mg PO DAILY 11/04/15 Levothyroxine [Synthroid -] 88 mcg PO DAILY 11/04/15 Albuterol 0.083% Nebulizer Teresa [Ventolin 0.083% Nebulizer Soln -] 1 amp NEB Q4H PRN #1 amp 11/07/15 Family Disease History - Family Disease History Family Disease History: Heart Disease: Mother, [place]: Father Review of Systems - Review of Systems Cardiovascular: denies: Chest Pain Respiratory: denies: SOB Gastrointestinal: reports: Abdominal Pain, Bloating Neurological: reports: No Symptoms Physical Examination Vital Signs: Vital Signs Temperature 99.6 F 03/25/18 06:00 Pulse Rate 105 H 03/25/18 06:00 Respiratory Rate 20 03/25/18 06:00 Blood Pressure 120/61 03/25/18 06:00 O2 Sat by Pulse Oximetry (%) 98 03/24/18 19:30 Cardiovascular: Yes: Regular Rate and Rhythm Respiratory: Yes: Regular, CTA Bilaterally Gastrointestinal: Yes: Abdomen, Obese, Distention, Hypoactive Bowel Sounds Edema: No Labs: CBC, BMP 03/25/18 10:38 03/25/18 10:38 Problem List - Problems (1) Perforated appendicitis Assessment/Plan: -Iv abx -Surgical follow up -ID consult Code(s): K35.2 - ACUTE APPENDICITIS WITH GENERALIZED PERITONITIS (2) Abdominal pain Code(s): R10.9 - UNSPECIFIED ABDOMINAL PAIN Qualifiers: Abdominal location: unspecified location Qualified Code(s): R10.9 - Unspecified abdominal pain (3) ASHD (arteriosclerotic heart disease) Assessment/Plan: -no cp -monitor -EKG Code(s): I25.10 - ATHSCL HEART DISEASE OF [place] CORONARY ARTERY W/O ANG PCTRS (4) Asthma Code(s): J45.909 - UNSPECIFIED ASTHMA, UNCOMPLICATED Qualifiers: Asthma severity: unspecified severity Asthma complication type: uncomplicated Qualified Code(s): J45.909 - Unspecified asthma, uncomplicated (5) Hypertension Assessment/Plan: Vital Signs Period Temp Pulse Resp BP Sys/Dai Pulse Ox Last 24 Hr 98.1 F-99.6 F 75-105 16-20 94-120/48-65 97-100 Code(s): I10 - ESSENTIAL (PRIMARY) HYPERTENSION
--- NOTE | 2018-03-25 16:56 | PN ---
Progress Note (short form) - Note Progress Note: Anesthesia postop note POD#1, S/P Appendectomy with perforated appendicitis under general anesthesia. Pat seen and examined. No complaints. Ambulating tolerating clear liquids. VSS. No apparent post anesthesia complications. signed off.
[2018-03-26] MEDS: ACETAMINOPHEN 1000 MG/100 ML VIAL (NON FORMULARY) IVPB PRN (02:32)
[2018-03-26] MEDS: LEVOTHYROXINE NA 88 MCG TABLET (FP) PO SCH (06:01)
--- NOTE | 2018-03-26 10:41 | EKG ---
Test Reason : Blood Pressure : / mmHG Vent. Rate : 089 BPM Atrial Rate : 089 BPM P-R Int : 152 ms QRS Dur : 090 ms QT Int : 370 ms P-R-T Axes : 066 -36 023 degrees QTc Int : 450 ms NORMAL SINUS RHYTHM LEFT AXIS DEVIATION CANNOT RULE OUT INFERIOR INFARCT (CITED ON OR BEFORE 02-MAY-2006) ABNORMAL ECG WHEN COMPARED WITH ECG OF 24-MAR-2018 07:17, VENT. RATE HAS DECREASED Confirmed by BA GARCIA, OG ([id number]) on 03/26/2018 10:40:50 AM Referred By: Marilu TUBBS Confirmed By:OG COSME MD
--- NOTE | 2018-03-26 11:46 | PN ---
Progress Note, Physician Chief Complaint: ID Day 2 post op gangrenous appendix perforated Complains of severe abd pain and distention - Current Medication List Current Medications: Active Medications Lactated Ringer's (Lactated Ringers Solution) 1,000 ml in 1,000 mls @ 100 mls/ hr IV ASDIR JOSE Last Admin: 03/25/18 20:33 Dose: 100 mls/hr Levofloxacin (Levaquin 500 Mg Premixed Ivpb -) 500 mg in 100 mls @ 100 mls/hr IVPB DAILY JOSE; Protocol Last Admin: 03/26/18 09:52 Dose: 100 mls/hr Metronidazole (Flagyl 500mg Premixed Ivpb -) 500 mg in 100 mls @ 100 mls/hr IVPB Q6H-IV JOSE Last Admin: 03/26/18 09:52 Dose: 100 mls/hr Levothyroxine Sodium (Synthroid -) 88 mcg PO ACBK JOSE Last Admin: 03/26/18 06:01 Dose: 88 mcg Ondansetron HCl (Zofran Injection) 4 mg IVPUSH Q6H PRN PRN Reason: NAUSEA AND/OR VOMITING - Objective Vital Signs: Vital Signs Temperature 98.6 F 03/26/18 05:50 Pulse Rate 84 03/26/18 05:50 Respiratory Rate 20 03/26/18 05:50 Blood Pressure 135/76 03/26/18 05:50 O2 Sat by Pulse Oximetry (%) 94 L 03/25/18 21:00 Constitutional: Yes: No Distress Cardiovascular: Yes: S1, S2 Respiratory: Yes: WNL, Regular, CTA Bilaterally Gastrointestinal: Yes: Distention, Tenderness Edema: No Labs: CBC, BMP 03/25/18 10:38 03/25/18 10:38 INR, PTT INR 1.06 (0.82-1.09) 03/24/18 06:45 Problem List - Problems (1) Peritonitis Code(s): K65.9 - PERITONITIS, UNSPECIFIED (2) Appendicitis Code(s): K37 - UNSPECIFIED APPENDICITIS Qualifiers: Appendicitis type: acute appendicitis Acute appendicitis type: with localized peritonitis Qualified Code(s): K35.3 - Acute appendicitis with localized peritonitis (3) Perforated appendicitis Code(s): K35.2 - ACUTE APPENDICITIS WITH GENERALIZED PERITONITIS (4) Penicillin allergy Code(s): Z88.0 - ALLERGY STATUS TO PENICILLIN Assessment/Plan Microbiology 03/24/18 06:45 Urine - Urine Clean Catch Urine Culture - Final NO GROWTH OBTAINED 03/24/18 08:00 Blood - Peripheral Venous Blood Culture - Preliminary NO GROWTH OBTAINED AFTER 48 HOURS, INCUBATION TO CONTINUE FOR 3 DAYS. 03/24/18 08:00 Blood - Peripheral Venous Blood Culture - Preliminary NO GROWTH OBTAINED AFTER 48 HOURS, INCUBATION TO CONTINUE FOR 3 DAYS. Laboratory Tests 03/25/18 03/25/18 10:38 10:38 WBC 18.0 H Plt Count 203 Creat Clearance w eGFR > 60 Assessment Perforated gangrenous appendicitis peritonitis Abd distended and tender Plan Broaden coverage beyond the quinolone as she is ill Also PCN allergy considered Clindamycin and Aztreonam Familia GARCIA
--- NOTE | 2018-03-26 14:28 | CONS ---
DATE OF CONSULTATION: DATE OF DICTATION: 03/26/2018 HISTORY: This is a 67-year-old female who I am asked to see day 2 laparoscopic appendectomy for acute gangrenous perforated appendicitis. She has a history of hypertension, asthma, and hypothyroidism and had presented to the emergency room on March 24 with a 24-hour history of right-sided abdominal pain associated with nausea and vomiting. She had a CT scan done, which recognized advanced acute appendicitis with severe periappendiceal fat stranding and a dilated and circumstantially inflamed and thickened appendix without obvious abscess or free air. She was taken to the operating room and laparoscopically had an appendectomy, and I am asked to see her now on levofloxacin and metronidazole for further antibiotic management. Postoperative, she appears to be in a great deal of pain secondary to abdominal discomfort. She also notes that her abdomen is severely distended. She also has fever and a persistent leukocytosis of 18,000. ALLERGIES: PENICILLIN many years ago with a facial rash. HOME MEDICATIONS: Albuterol, amlodipine, aspirin, levothyroxine. SOCIAL HISTORY: Former smoker. . Mother of 3 children. 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 Recent travel to [facility] 4 weeks ago. Denies alcohol abuse. FAMILY HISTORY: Reviewed and noncontributory. REVIEW OF SYSTEMS: Respiratory: No cough or shortness of breath. Cardiac: No chest pain, palpitations, syncope. Gastrointestinal: Abdominal distention and pain as noted. Genitourinary: No dysuria, hematuria. PHYSICAL EXAMINATION: General: Reveals an alert woman in no acute distress sitting in a chair. Vital Signs: Her temperature is 98.8, pulse 100, blood pressure 132/80, respirations 20. Neck: Supple. Lungs: Clear to auscultation. Heart: S1, S2. Regular rhythm without audible murmur. Abdomen: With hypoactive bowel sounds. Markedly abdominal distention with diffuse tenderness. Extremities: Without edema. DIAGNOSTIC DATA: The white count was 18.8 yesterday. Hemoglobin 12.1, platelets 203. Chemistries within normal limits except albumin 2.6. Urinalysis with 32 RBCs, 1 WBC. Two sets of blood cultures collected March 24, no growth. Urine culture, no growth. Admitting chest x-ray shows no acute infiltrate seen. ASSESSMENT: A 67-year-old female with perforated gangrenous appendix day 2 postoperative, history of PENICILLIN allergy noted, persistent intermittent fever and leukocytosis with abdominal distention and severe tenderness. Concern for peritonitis and possible evolving intra-abdominal abscess. PLAN: Empiric therapy with clindamycin and aztreonam. Obtain a CRP to help monitor response to therapy. Should she not improve, will need repeat CAT scan imaging in the days to come, but would defer this to her general surgeon. MARYAM ROBINS M.D. [id number]
--- NOTE | 2018-03-26 16:14 | PN ---
Progress Note, Physician Chief Complaint: awake alert sitting up mild-mod distress - Current Medication List Current Medications: Active Medications Acetaminophen (Tylenol -) 500 mg PO Q6H PRN PRN Reason: FEVER Lactated Ringer's (Lactated Ringers Solution) 1,000 ml in 1,000 mls @ 100 mls/ hr IV ASDIR JOSE Last Admin: 03/25/18 20:33 Dose: 100 mls/hr Clindamycin Phosphate (Cleocin 900 Mg Premix Ivpb -) 900 mg in 50 mls @ 100 mls /hr IVPB Q8H-IV JOSE; Protocol Aztreonam 2 gm/ Dextrose 100 mls @ 100 mls/hr IVPB Q8H-IV JOSE; Protocol Levothyroxine Sodium (Synthroid -) 88 mcg PO ACBK JOSE Last Admin: 03/26/18 06:01 Dose: 88 mcg Ondansetron HCl (Zofran Injection) 4 mg IVPUSH Q6H PRN PRN Reason: NAUSEA AND/OR VOMITING - Objective Vital Signs: Vital Signs Temperature 99.3 F 03/26/18 13:47 Pulse Rate 92 H 03/26/18 13:47 Respiratory Rate 16 03/26/18 13:47 Blood Pressure 126/73 03/26/18 13:47 O2 Sat by Pulse Oximetry (%) 91 L 03/26/18 09:00 Constitutional: Yes: Mild Distress Eyes: Yes: WNL HENT: Yes: WNL Neck: Yes: WNL Cardiovascular: Yes: WNL Respiratory: Yes: WNL Gastrointestinal: Yes: Tenderness Genitourinary: Yes: WNL Musculoskeletal: Yes: WNL Extremities: Yes: WNL Edema: Yes Edema: LLE: 1+, RLE: 1+ Peripheral Pulses WNL: Yes Integumentary: Yes: WNL Wound/Incision: Yes: Dressing Dry and Intact Neurological: Yes: WNL ...Motor Strength: WNL Psychiatric: Yes: WNL Labs: CBC, BMP 03/25/18 10:38 03/25/18 10:38 INR, PTT INR 1.06 (0.82-1.09) 03/24/18 06:45 Problem List - Problems (1) Abdominal pain Code(s): R10.9 - UNSPECIFIED ABDOMINAL PAIN Qualifiers: Abdominal location: unspecified location Qualified Code(s): R10.9 - Unspecified abdominal pain (2) Appendicitis Code(s): K37 - UNSPECIFIED APPENDICITIS Qualifiers: Appendicitis type: acute appendicitis Acute appendicitis type: with localized peritonitis Qualified Code(s): K35.3 - Acute appendicitis with localized peritonitis (3) Constipation Code(s): K59.00 - CONSTIPATION, UNSPECIFIED Qualifiers: Constipation type: unspecified constipation type Qualified Code(s): K59.00 - Constipation, unspecified (4) Peritonitis Code(s): K65.9 - PERITONITIS, UNSPECIFIED Assessment/Plan IV ABX DVT PROPHYLAXIS OOB TO CHAIR INCENTIVE SPIROMETRY NPO
[2018-03-26] MEDS: ACETAMINOPHEN 500 MG TABLET (FP) PO PRN (17:34)
[2018-03-26] MEDS: AZTREONAM 2 GM in DEXTROSE 5%-WATER 100 ML IVPB SCH (17:35)
[2018-03-26] MEDS: CLINDAMYCIN 900 MG PREMIX IVPB 900 MG/50 ML BAG IVPB SCH (17:38)
[2018-03-26] MEDS: LACTATED RINGERS SOLUTION 1,000 ML/1,000 ML INFUS.BAG IV SCH ×2 (17:38→21:10)
--- NOTE | 2018-03-26 19:18 | PN ---
Progress Note, Physician Chief Complaint: Patient denies flatus, no "real BM", still with incisional pain. History of Present Illness: I was asked to evaluate this 67 year old female with a PMHx sig for HTN, Asthma , Hypothyroidism presented to ED c/o approx. 24 hours of right sided abdominal pain associated with nausea and vomiting. Originally she was c/o constipation which evolved into diarrhea. Denies other G.I./G.U. symptoms. In ED she was found to be febrile to 102 F, tachycardic with normal BP and an elevated WBC with significant RLQ tenderness. She responded to fluids and a CT scan was ordered which revealed and advanced acute appendicitis, with severe ramon-appendiceal fat stranding and a dilated and circumstantially inflamed and thickened appendix, no abscess, no free air, no other sig. findings except gallstones but otherwise a normal gallbladder. - Current Medication List Current Medications: Active Medications Acetaminophen (Tylenol -) 500 mg PO Q6H PRN PRN Reason: FEVER Last Admin: 03/26/18 17:34 Dose: 500 mg Heparin Sodium (Porcine) (Heparin -) 5,000 unit SQ BID JOSE Lactated Ringer's (Lactated Ringers Solution) 1,000 ml in 1,000 mls @ 100 mls/ hr IV ASDIR JOSE Last Admin: 03/26/18 17:38 Dose: 100 mls/hr Clindamycin Phosphate (Cleocin 900 Mg Premix Ivpb -) 900 mg in 50 mls @ 100 mls /hr IVPB Q8H-IV JOSE; Protocol Last Admin: 03/26/18 17:38 Dose: 100 mls/hr Aztreonam 2 gm/ Dextrose 100 mls @ 100 mls/hr IVPB Q8H-IV JOSE; Protocol Last Admin: 03/26/18 17:35 Dose: 100 mls/hr Levothyroxine Sodium (Synthroid -) 88 mcg PO ACBK JOSE Last Admin: 03/26/18 06:01 Dose: 88 mcg Ondansetron HCl (Zofran Injection) 4 mg IVPUSH Q6H PRN PRN Reason: NAUSEA AND/OR VOMITING - Objective Vital Signs: Vital Signs Temperature 99.6 F 03/26/18 18:44 Pulse Rate 92 H 03/26/18 18:44 Respiratory Rate 18 03/26/18 18:44 Blood Pressure 145/84 03/26/18 18:44 O2 Sat by Pulse Oximetry (%) 91 L 03/26/18 09:00 Constitutional: Yes: No Distress, Obese Eyes: Yes: Conjunctiva Clear, EOM Intact HENT: Yes: Atraumatic, Normocephalic Neck: Yes: Supple, Trachea Midline Cardiovascular: Yes: Regular Rate and Rhythm. No: Tachycardia Respiratory: Yes: Regular, CTA Bilaterally. No: Wheezes Gastrointestinal: Yes: Soft, Abdomen, Obese, Tenderness (mild incisional) ...Rectal Exam: Yes: Deferred Genitourinary: No: Solorio Present, Hematuria Musculoskeletal: No: Joint Swelling Extremities: No: Calf Tenderness, Cyanosis Edema: Yes (+2 pitting L>R) Wound/Incision: Yes: Clean/Dry, Sutures Intact Neurological: Yes: Alert, Oriented Labs: CBC, BMP 03/25/18 10:38 03/25/18 10:38 INR, PTT INR 1.06 (0.82-1.09) 03/24/18 06:45 Problem List - Problems (1) Appendicitis Assessment/Plan: 67 yo female POD #2 s/p lap appendectomy for a perforated gangrenous gallbladder. Doing fairly well but with symptoms c/w a possible mild post-op ileus, which is to be expected. STAT Venous Dopplers obtained for pain swelling calor LLE>RLE. Negative for DVT. Continue IS, ambulation, regular diet. IV Abx as per ID. Code(s): K37 - UNSPECIFIED APPENDICITIS Qualifiers: Appendicitis type: acute appendicitis Acute appendicitis type: with localized peritonitis Qualified Code(s): K35.3 - Acute appendicitis with localized peritonitis (2) Abdominal pain Code(s): R10.9 - UNSPECIFIED ABDOMINAL PAIN Qualifiers: Abdominal location: unspecified location Qualified Code(s): R10.9 - Unspecified abdominal pain (3) Nausea Code(s): R11.0 - NAUSEA (4) Vomiting and diarrhea Code(s): R11.10 - VOMITING, UNSPECIFIED; R19.7 - DIARRHEA, UNSPECIFIED
[2018-03-26] MEDS: HEPARIN NA (PORCINE) 5,000 UNITS/ML 1ML VIAL SQ SCH (21:57)
[2018-03-26] MEDS ORDERED: PT OWN MED DRAWER 7, Y5N ONE (23:50)
[2018-03-27] MEDS: AZTREONAM 2 GM in DEXTROSE 5%-WATER 100 ML IVPB SCH ×3 (01:33→17:28)
[2018-03-27] MEDS: CLINDAMYCIN 900 MG PREMIX IVPB 900 MG/50 ML BAG IVPB SCH ×3 (01:33→17:28)
[2018-03-27] MEDS: LEVOTHYROXINE NA 88 MCG TABLET (FP) PO SCH (06:28)
[2018-03-27 07:11] LABS: BASO % 0.9 % (0-2.0); EOS % 0.4 % (0-4.5); HEMATOCRIT 34.9 % (32.4-45.2); HEMOGLOBIN 11.3 GM/dL (10.7-15.3); LYMPH % 11.3 % (8-40); MCHC 32.3 g/dl (32.0-36.0); MEAN CELL VOLUME 83.6 fl (80-96); MEAN PLT VOLUME 8.2 fl (7.5-11.1); MONO % 8.8 % (3.8-10.2); NEUT % 78.6 % (42.8-82.8); PLATELET COUNT 233 K/MM3 (134-434); RBC 4.18 M/mm3 (3.60-5.2); RDW 16.3 % (11.6-15.6); WHITE BLOOD COUNT 13.2 K/mm3 (4.0-10.0)
[2018-03-27 07:41] LABS: ANION GAP 9 (8-16); BLOOD UREA NITROGEN 9 mg/dL (7-18); CALCIUM 7.8 mg/dL (8.5-10.1); CHLORIDE 101 mmol/L (98-107); CO2 30 mmol/L (21-32); CREATININE 0.5 mg/dL (0.55-1.02); GLUCOSE,RANDOM 96 mg/dL (74-106); MAGNESIUM 2.2 mg/dL (1.8-2.4); POTASSIUM 3.6 mmol/L (3.5-5.1); SODIUM 140 mmol/L (136-145)
[2018-03-27] MEDS: HEPARIN NA (PORCINE) 5,000 UNITS/ML 1ML VIAL SQ SCH ×2 (10:14→21:14)
[2018-03-27] MEDS: ACETAMINOPHEN 500 MG TABLET (FP) PO PRN ×2 (13:16→21:13)
--- NOTE | 2018-03-27 15:06 | PN ---
Progress Note, Physician Chief Complaint: AWAKE ALERT FEELS BETTER DENIES FEVER AND CHILLS POOR APPETITE +FLATULENCE - Current Medication List Current Medications: Active Medications Acetaminophen (Tylenol -) 500 mg PO Q6H PRN PRN Reason: FEVER Last Admin: 03/27/18 13:16 Dose: 500 mg Heparin Sodium (Porcine) (Heparin -) 5,000 unit SQ BID JOSE Last Admin: 03/27/18 10:14 Dose: Not Given Lactated Ringer's (Lactated Ringers Solution) 1,000 ml in 1,000 mls @ 100 mls/ hr IV ASDIR JOSE Last Admin: 03/26/18 21:10 Dose: 100 mls/hr Clindamycin Phosphate (Cleocin 900 Mg Premix Ivpb -) 900 mg in 50 mls @ 100 mls /hr IVPB Q8H-IV JOSE; Protocol Last Admin: 03/27/18 10:14 Dose: 100 mls/hr Aztreonam 2 gm/ Dextrose 100 mls @ 100 mls/hr IVPB Q8H-IV JOSE; Protocol Last Admin: 03/27/18 10:14 Dose: 100 mls/hr Levothyroxine Sodium (Synthroid -) 88 mcg PO ACBK JOSE Last Admin: 03/27/18 06:28 Dose: 88 mcg Ondansetron HCl (Zofran Injection) 4 mg IVPUSH Q6H PRN PRN Reason: NAUSEA AND/OR VOMITING - Objective Vital Signs: Vital Signs Temperature 98.1 F 03/27/18 13:39 Pulse Rate 93 H 03/27/18 13:39 Respiratory Rate 17 03/27/18 13:39 Blood Pressure 137/86 03/27/18 13:39 O2 Sat by Pulse Oximetry (%) 96 03/27/18 09:00 Constitutional: Yes: Mild Distress Eyes: Yes: WNL HENT: Yes: WNL Neck: Yes: WNL Cardiovascular: Yes: WNL Respiratory: Yes: WNL Gastrointestinal: Yes: Tenderness Musculoskeletal: Yes: WNL Extremities: Yes: WNL Edema: Yes Edema: LLE: Trace, RLE: Trace Peripheral Pulses WNL: Yes Integumentary: Yes: WNL Wound/Incision: Yes: Clean/Dry Neurological: Yes: WNL ...Motor Strength: WNL Psychiatric: Yes: WNL Labs: CBC, BMP 03/27/18 06:30 03/27/18 06:30 INR, PTT INR 1.06 (0.82-1.09) 03/24/18 06:45 Problem List - Problems (1) Abdominal pain Code(s): R10.9 - UNSPECIFIED ABDOMINAL PAIN Qualifiers: Abdominal location: unspecified location Qualified Code(s): R10.9 - Unspecified abdominal pain (2) Appendicitis Code(s): K37 - UNSPECIFIED APPENDICITIS Qualifiers: Appendicitis type: acute appendicitis Acute appendicitis type: with localized peritonitis Qualified Code(s): K35.3 - Acute appendicitis with localized peritonitis (3) Constipation Code(s): K59.00 - CONSTIPATION, UNSPECIFIED Qualifiers: Constipation type: unspecified constipation type Qualified Code(s): K59.00 - Constipation, unspecified (4) Peritonitis Code(s): K65.9 - PERITONITIS, UNSPECIFIED Assessment/Plan IV ABX PER ID WBC IMPROVING TO 13 TODAY OOB TO CHAIR INCENTIVE SPIROMETRY ADVANCE DIET TOLERATED SX EVAL AND F/U APPRECIATED
--- NOTE | 2018-03-27 15:08 | PN ---
Progress Note, Physician History of Present Illness: Awake, alert Reports less abdominal pain No c/o fever/ chills Tolerating antibiotics - Current Medication List Current Medications: Active Medications Acetaminophen (Tylenol -) 500 mg PO Q6H PRN PRN Reason: FEVER Last Admin: 03/27/18 13:16 Dose: 500 mg Heparin Sodium (Porcine) (Heparin -) 5,000 unit SQ BID JOSE Last Admin: 03/27/18 10:14 Dose: Not Given Lactated Ringer's (Lactated Ringers Solution) 1,000 ml in 1,000 mls @ 100 mls/ hr IV ASDIR JOSE Last Admin: 03/26/18 21:10 Dose: 100 mls/hr Clindamycin Phosphate (Cleocin 900 Mg Premix Ivpb -) 900 mg in 50 mls @ 100 mls /hr IVPB Q8H-IV JOSE; Protocol Last Admin: 03/27/18 10:14 Dose: 100 mls/hr Aztreonam 2 gm/ Dextrose 100 mls @ 100 mls/hr IVPB Q8H-IV JOSE; Protocol Last Admin: 03/27/18 10:14 Dose: 100 mls/hr Levothyroxine Sodium (Synthroid -) 88 mcg PO ACBK JOSE Last Admin: 03/27/18 06:28 Dose: 88 mcg Ondansetron HCl (Zofran Injection) 4 mg IVPUSH Q6H PRN PRN Reason: NAUSEA AND/OR VOMITING - Objective Vital Signs: Vital Signs Temperature 98.1 F 03/27/18 13:39 Pulse Rate 93 H 03/27/18 13:39 Respiratory Rate 17 03/27/18 13:39 Blood Pressure 137/86 03/27/18 13:39 O2 Sat by Pulse Oximetry (%) 96 03/27/18 09:00 Constitutional: Yes: No Distress, Obese Cardiovascular: Yes: Regular Rate and Rhythm, S1, S2 Respiratory: Yes: CTA Bilaterally Gastrointestinal: Yes: Normal Bowel Sounds, Soft, Abdomen, Obese, Tenderness, Other (mild diffuse tenderness) Edema: No Labs: CBC, BMP 03/27/18 06:30 03/27/18 06:30 INR, PTT INR 1.06 (0.82-1.09) 03/24/18 06:45 Assessment/Plan POD #3 perforated appendix PCN allergy Continue clindamycin/ aztreonam
[2018-03-27] MEDS ORDERED: PT OWN MED DRAWER 7, Y5N ONE (17:19)
[2018-03-27] MEDS: LACTATED RINGERS SOLUTION 1,000 ML/1,000 ML INFUS.BAG IV SCH (17:29)
[2018-03-28] MEDS: LACTATED RINGERS SOLUTION 1,000 ML/1,000 ML INFUS.BAG IV SCH ×2 (02:04→17:00)
[2018-03-28] MEDS: CLINDAMYCIN 900 MG PREMIX IVPB 900 MG/50 ML BAG IVPB SCH ×3 (02:04→18:17)
[2018-03-28] MEDS: AZTREONAM 2 GM in DEXTROSE 5%-WATER 100 ML IVPB SCH ×3 (02:05→18:17)
[2018-03-28] MEDS: ACETAMINOPHEN 500 MG TABLET (FP) PO PRN ×2 (05:14→23:32)
[2018-03-28] MEDS: LEVOTHYROXINE NA 88 MCG TABLET (FP) PO SCH (06:38)
[2018-03-28 08:18] LABS: HEMATOCRIT 34.3 % (32.4-45.2); HEMOGLOBIN 11.2 GM/dL (10.7-15.3); MCH 26.9 pg (25.7-33.7); MCHC 32.5 g/dl (32.0-36.0); MEAN CELL VOLUME 82.8 fl (80-96); MEAN PLT VOLUME 7.8 fl (7.5-11.1); PLATELET COUNT 263 K/MM3 (134-434); RBC 4.14 M/mm3 (3.60-5.2); RDW 16.4 % (11.6-15.6)
--- NOTE | 2018-03-28 08:20 | PN ---
Progress Note, Physician Chief Complaint: ID Looks and feels better today Clindamycin and Aztreonam - Current Medication List Current Medications: Active Medications Acetaminophen (Tylenol -) 500 mg PO Q6H PRN PRN Reason: FEVER Last Admin: 03/28/18 05:14 Dose: 500 mg Heparin Sodium (Porcine) (Heparin -) 5,000 unit SQ BID JOSE Last Admin: 03/27/18 21:14 Dose: Not Given Lactated Ringer's (Lactated Ringers Solution) 1,000 ml in 1,000 mls @ 100 mls/ hr IV ASDIR JOSE Last Admin: 03/28/18 02:04 Dose: 100 mls/hr Clindamycin Phosphate (Cleocin 900 Mg Premix Ivpb -) 900 mg in 50 mls @ 100 mls /hr IVPB Q8H-IV JOSE; Protocol Last Admin: 03/28/18 02:04 Dose: 100 mls/hr Aztreonam 2 gm/ Dextrose 100 mls @ 100 mls/hr IVPB Q8H-IV JOSE; Protocol Last Admin: 03/28/18 02:05 Dose: 100 mls/hr Levothyroxine Sodium (Synthroid -) 88 mcg PO ACBK JOSE Last Admin: 03/28/18 06:38 Dose: 88 mcg Ondansetron HCl (Zofran Injection) 4 mg IVPUSH Q6H PRN PRN Reason: NAUSEA AND/OR VOMITING - Objective Vital Signs: Vital Signs Temperature 99.0 F 03/28/18 06:00 Pulse Rate 77 03/28/18 06:00 Respiratory Rate 18 03/28/18 06:00 Blood Pressure 149/83 03/28/18 06:00 O2 Sat by Pulse Oximetry (%) 95 03/27/18 21:00 Constitutional: Yes: Well Nourished, No Distress HENT: Yes: WNL, Atraumatic Neck: Yes: WNL, Supple Cardiovascular: Yes: Regular Rate and Rhythm, S1, S2. No: Murmur Respiratory: Yes: WNL, Regular, CTA Bilaterally Gastrointestinal: Yes: Soft, Tenderness Edema: No Labs: CBC, BMP 03/27/18 06:30 INR, PTT INR 1.06 (0.82-1.09) 03/24/18 06:45 Problem List - Problems (1) Peritonitis Code(s): K65.9 - PERITONITIS, UNSPECIFIED (2) Appendicitis Code(s): K37 - UNSPECIFIED APPENDICITIS Qualifiers: Appendicitis type: acute appendicitis Acute appendicitis type: with localized peritonitis Qualified Code(s): K35.3 - Acute appendicitis with localized peritonitis (3) Perforated appendicitis Code(s): K35.2 - ACUTE APPENDICITIS WITH GENERALIZED PERITONITIS (4) Penicillin allergy Code(s): Z88.0 - ALLERGY STATUS TO PENICILLIN Assessment/Plan Microbiology 03/24/18 06:45 Urine - Urine Clean Catch Urine Culture - Final NO GROWTH OBTAINED 03/24/18 08:00 Blood - Peripheral Venous Blood Culture - Preliminary NO GROWTH OBTAINED AFTER 72 HOURS, INCUBATION TO CONTINUE FOR 2 DAYS. 03/24/18 08:00 Blood - Peripheral Venous Blood Culture - Preliminary NO GROWTH OBTAINED AFTER 72 HOURS, INCUBATION TO CONTINUE FOR 2 DAYS. Laboratory Tests 03/25/18 03/27/18 03/27/18 10:38 06:30 06:30 WBC 18.0 H 13.2 H Hgb 11.3 Plt Count 233 BUN 9 Assessment Appendicitis with periappendiceal abscess PCN allergy Plan Looks better today Continue current antibiotics Surgical f/u ongoing Familia GARCIA
[2018-03-28 08:31] LABS: ALBUMIN 2.1 g/dl (3.4-5.0); ALK PHOS 58 U/L (45-117); ANION GAP 8 (8-16); BILIRUBIN,TOTAL 0.3 mg/dL (0.2-1.0); BLOOD UREA NITROGEN 8 mg/dL (7-18); CALCIUM 7.8 mg/dL (8.5-10.1); CHLORIDE 104 mmol/L (98-107); CO2 31 mmol/L (21-32); CREATININE 0.4 mg/dL (0.55-1.02); GLUCOSE,RANDOM 93 mg/dL (74-106); POTASSIUM 3.6 mmol/L (3.5-5.1); SGOT/AST 22 U/L (15-37); SGPT/ALT 17 U/L (12-78); SODIUM 143 mmol/L (136-145); TOT PROT 5.6 g/dl (6.4-8.2)
--- NOTE | 2018-03-28 09:06 | PN ---
Progress Note, Physician Chief Complaint: abdominal pain History of Present Illness: 67 yo female PMH obesity, HTN, Asthma, Hypothyroidism presented to ED c/o approx. 24 hours of right sided abdominal pain associated with nausea and vomiting. stable post operatively. Low grade temp 100.6. Reports having no appetite. - Current Medication List Current Medications: Active Medications Acetaminophen (Tylenol -) 500 mg PO Q6H PRN PRN Reason: FEVER Last Admin: 03/28/18 05:14 Dose: 500 mg Heparin Sodium (Porcine) (Heparin -) 5,000 unit SQ BID JOSE Last Admin: 03/27/18 21:14 Dose: Not Given Lactated Ringer's (Lactated Ringers Solution) 1,000 ml in 1,000 mls @ 100 mls/ hr IV ASDIR JOSE Last Admin: 03/28/18 02:04 Dose: 100 mls/hr Clindamycin Phosphate (Cleocin 900 Mg Premix Ivpb -) 900 mg in 50 mls @ 100 mls /hr IVPB Q8H-IV JOSE; Protocol Last Admin: 03/28/18 02:04 Dose: 100 mls/hr Aztreonam 2 gm/ Dextrose 100 mls @ 100 mls/hr IVPB Q8H-IV JOSE; Protocol Last Admin: 03/28/18 02:05 Dose: 100 mls/hr Levothyroxine Sodium (Synthroid -) 88 mcg PO ACBK JOSE Last Admin: 03/28/18 06:38 Dose: 88 mcg Ondansetron HCl (Zofran Injection) 4 mg IVPUSH Q6H PRN PRN Reason: NAUSEA AND/OR VOMITING - Objective Vital Signs: Vital Signs Temperature 99.0 F 03/28/18 06:00 Pulse Rate 77 03/28/18 06:00 Respiratory Rate 18 03/28/18 06:00 Blood Pressure 149/83 03/28/18 06:00 O2 Sat by Pulse Oximetry (%) 95 03/27/18 21:00 Vital Signs Period Temp Pulse Resp BP Sys/Dai Pulse Ox Last 24 Hr 98 F-100.6 F 77-96 17-19 130-149/82-88 95 Intake & Output 03/27/18 03/28/18 03/28/18 23:59 07:59 15:59 Intake Total 1999 1000 Balance 1999 1000 Intake: IV 1000 1000 LACTATED RINGERS SOLUTION 1000 1000 1,000 ml In 1,000 ml @ 100 mls/hr IV ASDIR JOSE Rx#:[id number] IVPB 300 Oral 700 Other: Voiding Method Toilet # Unmeasured Voids Void 2 Bowel Movement Yes: very small Constitutional: Yes: No Distress, Calm, Obese Eyes: Yes: Conjunctiva Clear, EOM Intact HENT: Yes: Atraumatic, Normocephalic Neck: Yes: Supple, Trachea Midline Cardiovascular: Yes: Regular Rate and Rhythm, S1, S2 Respiratory: Yes: Regular, CTA Bilaterally Gastrointestinal: Yes: Normal Bowel Sounds, Soft, Abdomen, Obese. No: Tenderness, Tenderness, Rebound, Vomiting ...Rectal Exam: Yes: Deferred Genitourinary: No: CVA Tenderness - Left, CVA Tenderness - Right Extremities: No: Cool, Cyanosis Edema: No Peripheral Pulses WNL: Yes Peripheral Pulses: Left Doralis Pedis: 2+, Right Dorsalis Pedis: 2+ Wound/Incision: Yes: Clean/Dry, Well Approximated. No: Draining, Reddened Neurological: Yes: Alert, Oriented Psychiatric: Yes: Alert, Oriented Labs: CBC, BMP 03/28/18 06:20 03/28/18 06:20 INR, PTT INR 1.06 (0.82-1.09) 03/24/18 06:45 Problem List - Problems (1) Appendicitis Assessment/Plan: 67yo female MMP POD#4 s/p Lap appendectyomy, low grade temp, normalizing WBC Advance diet as tolerated Antibiotics per ID OOB and ambulate encourge IS Discharge planning Covering for Dr. Mcmanus Code(s): K37 - UNSPECIFIED APPENDICITIS Qualifiers: Appendicitis type: acute appendicitis Acute appendicitis type: with localized peritonitis Qualified Code(s): K35.3 - Acute appendicitis with localized peritonitis (2) Abdominal pain Code(s): R10.9 - UNSPECIFIED ABDOMINAL PAIN Qualifiers: Abdominal location: unspecified location Qualified Code(s): R10.9 - Unspecified abdominal pain (3) Asthma Code(s): J45.909 - UNSPECIFIED ASTHMA, UNCOMPLICATED Qualifiers: Asthma severity: unspecified severity Asthma complication type: uncomplicated (4) Hypertension Code(s): I10 - ESSENTIAL (PRIMARY) HYPERTENSION (5) Hypothyroid Code(s): E03.9 - HYPOTHYROIDISM, UNSPECIFIED (6) URI (upper respiratory infection) Code(s): J06.9 - ACUTE UPPER RESPIRATORY INFECTION, UNSPECIFIED Qualifiers: URI type: unspecified viral URI Qualified Code(s): J06.9 - Acute upper respiratory infection, unspecified
[2018-03-28] MEDS ORDERED: PT OWN MED DRAWER 7, Y5N ONE ×2 (09:26→23:46)
[2018-03-28] MEDS: HEPARIN NA (PORCINE) 5,000 UNITS/ML 1ML VIAL SQ SCH ×2 (09:37→23:32)
--- NOTE | 2018-03-28 11:04 | PN ---
Progress Note, Physician History of Present Illness: some improvement - Current Medication List Current Medications: Active Medications Acetaminophen (Tylenol -) 500 mg PO Q6H PRN PRN Reason: FEVER Last Admin: 03/28/18 05:14 Dose: 500 mg Heparin Sodium (Porcine) (Heparin -) 5,000 unit SQ BID JOSE Last Admin: 03/28/18 09:37 Dose: Not Given Lactated Ringer's (Lactated Ringers Solution) 1,000 ml in 1,000 mls @ 100 mls/ hr IV ASDIR JOSE Last Admin: 03/28/18 02:04 Dose: 100 mls/hr Clindamycin Phosphate (Cleocin 900 Mg Premix Ivpb -) 900 mg in 50 mls @ 100 mls /hr IVPB Q8H-IV JOSE; Protocol Last Admin: 03/28/18 09:34 Dose: 100 mls/hr Aztreonam 2 gm/ Dextrose 100 mls @ 100 mls/hr IVPB Q8H-IV JOSE; Protocol Last Admin: 03/28/18 09:34 Dose: 100 mls/hr Levothyroxine Sodium (Synthroid -) 88 mcg PO ACBK JOSE Last Admin: 03/28/18 06:38 Dose: 88 mcg Ondansetron HCl (Zofran Injection) 4 mg IVPUSH Q6H PRN PRN Reason: NAUSEA AND/OR VOMITING - Objective Vital Signs: Vital Signs Temperature 98.4 F 03/28/18 10:23 Pulse Rate 82 03/28/18 10:23 Respiratory Rate 19 03/28/18 10:23 Blood Pressure 139/75 03/28/18 10:23 O2 Sat by Pulse Oximetry (%) 95 03/27/18 21:00 Cardiovascular: Yes: S1, S2 Respiratory: Yes: Regular, CTA Bilaterally Gastrointestinal: Yes: Normal Bowel Sounds, Soft, Distention, Tenderness Labs: CBC, BMP 03/28/18 06:20 03/28/18 06:20 INR, PTT INR 1.06 (0.82-1.09) 03/24/18 06:45 Problem List - Problems (1) Perforated appendicitis Assessment/Plan: -Iv abx -Surgical follow up -ID follow up noted Code(s): K35.2 - ACUTE APPENDICITIS WITH GENERALIZED PERITONITIS (2) Abdominal pain Code(s): R10.9 - UNSPECIFIED ABDOMINAL PAIN Qualifiers: Abdominal location: unspecified location Qualified Code(s): R10.9 - Unspecified abdominal pain (3) ASHD (arteriosclerotic heart disease) Assessment/Plan: -no cp -monitor -EKG Code(s): I25.10 - ATHSCL HEART DISEASE OF [place] CORONARY ARTERY W/O ANG PCTRS (4) Asthma Code(s): J45.909 - UNSPECIFIED ASTHMA, UNCOMPLICATED Qualifiers: Asthma severity: unspecified severity Asthma complication type: uncomplicated Qualified Code(s): J45.909 - Unspecified asthma, uncomplicated (5) Hypertension Assessment/Plan: Vital Signs Vital Signs Period Temp Pulse Resp BP Sys/Dai Pulse Ox Last 24 Hr 98 F-100.6 F 77-93 17-19 130-149/75-86 95 Code(s): I10 - ESSENTIAL (PRIMARY) HYPERTENSION
[2018-03-29] MEDS ORDERED: PT OWN MED DRAWER 7, Y5N ONE ×3 (01:44→17:15)
[2018-03-29] MEDS: AZTREONAM 2 GM in DEXTROSE 5%-WATER 100 ML IVPB SCH ×3 (01:53→17:22)
[2018-03-29] MEDS: CLINDAMYCIN 900 MG PREMIX IVPB 900 MG/50 ML BAG IVPB SCH ×3 (01:53→18:48)
[2018-03-29] MEDS: LEVOTHYROXINE NA 88 MCG TABLET (FP) PO SCH (06:18)
[2018-03-29] MEDS: LACTATED RINGERS SOLUTION 1,000 ML/1,000 ML INFUS.BAG IV SCH ×2 (06:18→17:22)
[2018-03-29 06:32] LABS: BASO % 0.7 % (0-2.0); EOS % 1.7 % (0-4.5); HEMOGLOBIN 11.3 GM/dL (10.7-15.3); LYMPH % 18.7 % (8-40); MCHC 32.4 g/dl (32.0-36.0); MEAN CELL VOLUME 83.5 fl (80-96); MEAN PLT VOLUME 7.7 fl (7.5-11.1); MONO % 12.6 % (3.8-10.2); NEUT % 66.3 % (42.8-82.8); PLATELET COUNT 302 K/MM3 (134-434); RBC 4.19 M/mm3 (3.60-5.2); RDW 16.4 % (11.6-15.6); WHITE BLOOD COUNT 12.9 K/mm3 (4.0-10.0)
[2018-03-29 07:52] LABS: ALBUMIN 2.2 g/dl (3.4-5.0); ANION GAP 9 (8-16); BILIRUBIN,TOTAL 0.2 mg/dL (0.2-1.0); BLOOD UREA NITROGEN 7 mg/dL (7-18); CHLORIDE 102 mmol/L (98-107); CO2 31 mmol/L (21-32); CREATININE 0.5 mg/dL (0.55-1.02); GLUCOSE,RANDOM 90 mg/dL (74-106); POTASSIUM 3.6 mmol/L (3.5-5.1); SGOT/AST 40 U/L (15-37); SGPT/ALT 32 U/L (12-78); SODIUM 142 mmol/L (136-145); TOT PROT 5.8 g/dl (6.4-8.2)
[2018-03-29 07:53] LABS: ALK PHOS 63 U/L (45-117)
[2018-03-29 09:13] LABS: ACANTHOCYTES 0; ANISOCYTOSIS 0; HELMET CELLS 0; HOWELL-JOLLY BODIES 0; MACROCYTOSIS 0; OVALOCYTE 0; PLATELET ESTIMATE NORMAL; ROULEAU 0; SICKELED CELLS 0; TARGET CELLS 0; TEAR DROP CELLS 0; TOXIC GRANULATION 0
[2018-03-29] MEDS: HEPARIN NA (PORCINE) 5,000 UNITS/ML 1ML VIAL SQ SCH ×4 (09:48→21:32)
--- NOTE | 2018-03-29 09:59 | PN ---
Progress Note (short form) - Note Progress Note: Patient is POD#1 s/p laparoscopic appendectomy for a perforated gangrenous appendix with ramon-appendiceal abscess. Today patient passing flatus/BM's but tolerating clears. Vital Signs Temperature 98.7 F 03/29/18 09:05 Pulse Rate 88 03/29/18 09:05 Respiratory Rate 18 03/29/18 09:05 Blood Pressure 134/79 03/29/18 09:05 O2 Sat by Pulse Oximetry (%) 93 L 03/29/18 09:00 CBC, BMP 03/29/18 06:00 03/29/18 06:00 Patient using IS well and ambulating without issues, states much less incisional pain, states "some flatus but not much" and no "real BM's". Able to get in an out of bed fairly easily now. Exam reveals distended abdomen, hypoactive BS's, incisions dry intact, only scant pedal edema. Discussed with Medicine team. I would add a mild bowel regimen for mild constipation. Continue Regular diet, IV Abx, ambulate. Problem List - Problems (1) Appendicitis Code(s): K37 - UNSPECIFIED APPENDICITIS Qualifiers: Appendicitis type: acute appendicitis Acute appendicitis type: with localized peritonitis Qualified Code(s): K35.3 - Acute appendicitis with localized peritonitis (2) Abdominal pain Code(s): R10.9 - UNSPECIFIED ABDOMINAL PAIN Qualifiers: Abdominal location: unspecified location Qualified Code(s): R10.9 - Unspecified abdominal pain (3) Nausea Code(s): R11.0 - NAUSEA (4) Vomiting and diarrhea Code(s): R11.10 - VOMITING, UNSPECIFIED; R19.7 - DIARRHEA, UNSPECIFIED
--- NOTE | 2018-03-29 10:16 | PN ---
Progress Note, Physician Chief Complaint: AWAKE ALERT PREEXISTING LEFT POPLITEAL PAIN FOR PAST 3 MONTHS MRI LEFT KNEE WAS SCHEDULED AN OUTPATIENT BY DR FRANK/JULIAN STARTED EATING TODAY HAS NOT PASSED FLATUS - Current Medication List Current Medications: Active Medications Acetaminophen (Tylenol -) 500 mg PO Q6H PRN PRN Reason: FEVER Last Admin: 03/28/18 23:32 Dose: 500 mg Heparin Sodium (Porcine) (Heparin -) 5,000 unit SQ BID JOSE Last Admin: 03/29/18 09:48 Dose: Not Given Lactated Ringer's (Lactated Ringers Solution) 1,000 ml in 1,000 mls @ 100 mls/ hr IV ASDIR JOSE Last Admin: 03/29/18 06:18 Dose: 100 mls/hr Clindamycin Phosphate (Cleocin 900 Mg Premix Ivpb -) 900 mg in 50 mls @ 100 mls /hr IVPB Q8H-IV JOSE; Protocol Last Admin: 03/29/18 09:02 Dose: 100 mls/hr Aztreonam 2 gm/ Dextrose 100 mls @ 100 mls/hr IVPB Q8H-IV JOSE; Protocol Last Admin: 03/29/18 09:48 Dose: 100 mls/hr Levothyroxine Sodium (Synthroid -) 88 mcg PO ACBK JOSE Last Admin: 03/29/18 06:18 Dose: 88 mcg Ondansetron HCl (Zofran Injection) 4 mg IVPUSH Q6H PRN PRN Reason: NAUSEA AND/OR VOMITING - Objective Vital Signs: Vital Signs Temperature 98.7 F 03/29/18 09:05 Pulse Rate 88 03/29/18 09:05 Respiratory Rate 18 03/29/18 09:05 Blood Pressure 134/79 03/29/18 09:05 O2 Sat by Pulse Oximetry (%) 93 L 03/29/18 09:00 Constitutional: Yes: Mild Distress Eyes: Yes: WNL HENT: Yes: WNL Neck: Yes: WNL Cardiovascular: Yes: WNL Respiratory: Yes: WNL Gastrointestinal: Yes: Distention (NORMAL BOWEL SOUNDS), Tenderness Genitourinary: Yes: WNL Musculoskeletal: Yes: Muscle Pain, Muscle Weakness Extremities: Yes: WNL Edema: Yes Edema: LLE: Trace, RLE: Trace Peripheral Pulses WNL: Yes Integumentary: Yes: WNL Wound/Incision: Yes: Dressing Dry and Intact Neurological: Yes: WNL ...Motor Strength: WNL Psychiatric: Yes: WNL Labs: CBC, BMP 03/29/18 06:00 03/29/18 06:00 INR, PTT INR 1.06 (0.82-1.09) 03/24/18 06:45 Problem List - Problems (1) Abdominal pain Code(s): R10.9 - UNSPECIFIED ABDOMINAL PAIN Qualifiers: Abdominal location: unspecified location Qualified Code(s): R10.9 - Unspecified abdominal pain (2) Appendicitis Code(s): K37 - UNSPECIFIED APPENDICITIS Qualifiers: Appendicitis type: acute appendicitis Acute appendicitis type: with localized peritonitis Qualified Code(s): K35.3 - Acute appendicitis with localized peritonitis (3) Constipation Code(s): K59.00 - CONSTIPATION, UNSPECIFIED Qualifiers: Constipation type: unspecified constipation type Qualified Code(s): K59.00 - Constipation, unspecified (4) Peritonitis Code(s): K65.9 - PERITONITIS, UNSPECIFIED Assessment/Plan FUA/CXR ORDERED R/O ILEUS OR PNA IF TOLERATING MEALS CAN STOP IVF HEPARIN SQ BID CAN CHANGE TO TID OOB TO CHAIR DC PLANNING TOMORROW IF TOLERATING MEALS AND MOVING BOWEL
--- NOTE | 2018-03-29 11:45 | PN ---
Progress Note, Physician Chief Complaint: ID Afebrile Clindamycin and Aztreonam - Current Medication List Current Medications: Active Medications Acetaminophen (Tylenol -) 500 mg PO Q6H PRN PRN Reason: FEVER Last Admin: 03/28/18 23:32 Dose: 500 mg Heparin Sodium (Porcine) (Heparin -) 5,000 unit SQ TID JOSE Last Admin: 03/29/18 10:40 Dose: 5,000 unit Lactated Ringer's (Lactated Ringers Solution) 1,000 ml in 1,000 mls @ 100 mls/ hr IV ASDIR JOSE Last Admin: 03/29/18 06:18 Dose: 100 mls/hr Clindamycin Phosphate (Cleocin 900 Mg Premix Ivpb -) 900 mg in 50 mls @ 100 mls /hr IVPB Q8H-IV JOSE; Protocol Last Admin: 03/29/18 09:02 Dose: 100 mls/hr Aztreonam 2 gm/ Dextrose 100 mls @ 100 mls/hr IVPB Q8H-IV JOSE; Protocol Last Admin: 03/29/18 09:48 Dose: 100 mls/hr Levothyroxine Sodium (Synthroid -) 88 mcg PO ACBK JOSE Last Admin: 03/29/18 06:18 Dose: 88 mcg Ondansetron HCl (Zofran Injection) 4 mg IVPUSH Q6H PRN PRN Reason: NAUSEA AND/OR VOMITING Senna (Senna -) 1 tab PO HS JOSE - Objective Vital Signs: Vital Signs Temperature 98.7 F 03/29/18 09:05 Pulse Rate 88 03/29/18 09:05 Respiratory Rate 18 03/29/18 09:05 Blood Pressure 134/79 03/29/18 09:05 O2 Sat by Pulse Oximetry (%) 93 L 03/29/18 09:00 Constitutional: Yes: No Distress Neck: Yes: WNL, Supple Cardiovascular: Yes: Regular Rate and Rhythm, S1, S2. No: Murmur Respiratory: Yes: WNL, Regular, CTA Bilaterally Gastrointestinal: Yes: WNL, Normal Bowel Sounds, Soft, Tenderness Edema: Yes Labs: CBC, BMP 03/29/18 06:00 03/29/18 06:00 INR, PTT INR 1.06 (0.82-1.09) 03/24/18 06:45 Problem List - Problems (1) Peritonitis Code(s): K65.9 - PERITONITIS, UNSPECIFIED (2) Appendicitis Code(s): K37 - UNSPECIFIED APPENDICITIS Qualifiers: Appendicitis type: acute appendicitis Acute appendicitis type: with localized peritonitis Qualified Code(s): K35.3 - Acute appendicitis with localized peritonitis (3) Perforated appendicitis Code(s): K35.2 - ACUTE APPENDICITIS WITH GENERALIZED PERITONITIS (4) Penicillin allergy Code(s): Z88.0 - ALLERGY STATUS TO PENICILLIN Assessment/Plan Microbiology 03/24/18 08:00 Blood - Peripheral Venous Blood Culture - Final NO GROWTH AFTER 5 DAYS INCUBATION 03/24/18 08:00 Blood - Peripheral Venous Blood Culture - Final NO GROWTH AFTER 5 DAYS INCUBATION 03/24/18 06:45 Urine - Urine Clean Catch Urine Culture - Final NO GROWTH OBTAINED Laboratory Tests 03/29/18 03/29/18 06:00 06:00 WBC 12.9 H Hgb 11.3 Hct 35.0 Plt Count 302 Creatinine 0.5 L Creat Clearance w eGFR > 60 Assessment Day 5 post op She appears to be doing well Plan Discharge planning per Dr Negrete Has had sufficient antibiotic if today included Going to sign off at this time Thank you for letting me see this pt Familia GARCIA
--- NOTE | 2018-03-29 17:23 | PATH ---
Surgical Pathology Report Patient Name: GABRIELLE LOVE [facility]. Rec. #: [id number] /Age/Gender: 1950 (Age: 67) / F Account: [id number] Location: [address] [place] [address]/[facility] Taken: 03/24/2018 Received: 03/26/2018 Reported: 03/29/2018 Physicians: Susan Briones M.D. Specimen(s) Received APPENDIX Clinical History Acute appendicitis Final Diagnosis APPENDIX, APPENDECTOMY: ACUTE APPENDICITIS AND PERIAPPENDICITIS. Electronically Signed Cynthia Acosta M.D. Gross Description Received in formalin labeled "appendix," are 2 portions of a markedly disrupted appendix measuring 1.8 and 5.0 cm in length. The longer portion displays a stapled margin of resection. The outer surfaces are morales-spann and shaggy with attached exudate and multi-focal defects as well as abundant attached fat. Sectioning reveals a focally hemorrhagic lumen. The wall of the appendix averages 0.5 cm in thickness. [employer] sections are submitted in one cassette 03/26/201803/26/2018
[2018-03-29] MEDS: ACETAMINOPHEN 500 MG TABLET (FP) PO PRN (21:29)
[2018-03-29] MEDS: SENNOSIDES 8.6MG TABLET (FP) PO SCH (21:32)
[2018-03-30] MEDS: AZTREONAM 2 GM in DEXTROSE 5%-WATER 100 ML IVPB SCH ×2 (01:43→09:51)
[2018-03-30] MEDS: CLINDAMYCIN 900 MG PREMIX IVPB 900 MG/50 ML BAG IVPB SCH ×2 (01:43→10:59)
[2018-03-30] MEDS: LEVOTHYROXINE NA 88 MCG TABLET (FP) PO SCH (06:16)
[2018-03-30] MEDS: HEPARIN NA (PORCINE) 5,000 UNITS/ML 1ML VIAL SQ SCH ×3 (06:16→21:34)
--- NOTE | 2018-03-30 07:40 | PN ---
Progress Note (short form) - Note Progress Note: Patient is POD#1 s/p laparoscopic appendectomy for a perforated gangrenous appendix with ramon-appendiceal abscess. Today patient passing flatus/BM's but tolerating clears. CBC, BMP 03/29/18 06:00 03/29/18 06:00 Vital Signs Period Temp Pulse Resp BP Sys/Dai Pulse Ox Last 24 Hr 98.2 F-100.3 F 77-98 18-20 130-154/78-95 93-96 Patient ambulating without issues, states much less incisional pain, states "some flatus but not much". Exam reveals distended abdomen, hypoactive BS's, incisions dry intact. Continue Regular diet, PO Abx, continue ambulate. Probably discharge today as per Medicine team. Problem List - Problems (1) Appendicitis Code(s): K37 - UNSPECIFIED APPENDICITIS Qualifiers: Appendicitis type: acute appendicitis Acute appendicitis type: with localized peritonitis Qualified Code(s): K35.3 - Acute appendicitis with localized peritonitis (2) Abdominal pain Code(s): R10.9 - UNSPECIFIED ABDOMINAL PAIN Qualifiers: Abdominal location: unspecified location Qualified Code(s): R10.9 - Unspecified abdominal pain (3) Nausea Code(s): R11.0 - NAUSEA (4) Vomiting and diarrhea Code(s): R11.10 - VOMITING, UNSPECIFIED; R19.7 - DIARRHEA, UNSPECIFIED
[2018-03-30] MEDS ORDERED: PT OWN MED DRAWER 7, Y5N ONE (09:49)
--- NOTE | 2018-03-30 11:13 | OP ---
DATE OF OPERATION: 03/24/2018 PROCEDURE: Laparoscopic appendectomy. PREOPERATIVE DIAGNOSIS: Acute appendicitis. POSTOPERATIVE DIAGNOSIS: Gangrenous perforated appendicitis with periappendiceal abscess and fecaliths. SURGEON: Keyshawn Mcmanus MD LATHE SET UP PERSON: James Ha MD ANESTHESIOLOGIST: Dr. Forrest Luis MD. ANESTHESIA: General. SPECIMENS REMOVED: Appendix and fecaliths. ESTIMATED BLOOD LOSS: 10 mL. VOLUME OUT: Urine output, 300 mL. FLUID REPLACED: Lactated Ringers, 1500 mL. OPERATIVE PROCEDURE: After informed consent was obtained, patient was brought to the operating room urgently for laparoscopic appendectomy. Patient was placed supine on the operation table in the standard fashion. A Solorio catheter was placed, and bilateral advanced compression devices were placed on bilateral lower extremities. Endotracheal anesthesia was administered in a standard fashion. The abdomen was prepped and draped in a standard fashion. The abdomen was entered using a Veress technique in the following fashion: A small incision was made in the left subcostal region, and a Veress needle was inserted into the abdomen. A saline water test was utilized to ensure that the Veress needle as within the peritoneal cavity. Abdomen was insufflated with 15 mmHg, and then, a 5-mm 0-degree laparoscope was inserted into a 5-mm Visiport, and the abdomen was entered under direct visualization. The area under the Veress needle insertion was inspected. There was no evidence of injury or bleeding. Next, a 12-mm port was placed in the supraumbilical position, and a 5-mm port was placed in the left lower quadrant. The abdomen was inspected, and the base of the cecum was followed to what was clearly a very inflamed and in fact gangrenous appendix that was curled in a retrocecal fashion. The white line of Toldt along the right colic gutter was transected using hook electrocautery in order to bring the appendix up in the field of vision in order to dissect free the base of the appendix. This was performed , and then, the base of the appendix itself was found to be soft and able to be stapled with an Endo NOEMÍ stapler and a blue cartridge. It was noted that there was a periappendiceal abscess, which was suctioned approximately 10 mL of pus and 2 fecoliths which were removed from the abdomen. An attempt was made to come across the appendiceal mesoappendix, but the appendiceal artery was clearly obliterated. The vascular stapler was not needed to separate the appendix from its mesoappendix. The staple line and the mesoappendix were inspected. There was no bleeding noted. The appendix was placed in an EndoCatch bag and the area was suctioned and irrigated just locally in the right colonic fossa. The appendix was removed via the umbilical port. The umbilical port was closed with a No. 1 PDS using the Endo Close device. The abdomen was again inspected. There was no bleeding. Good hemostasis was noted. Sponge count, needle count, and instrument count were found to be correct x2. Abdomen was desufflated prior to removal of the ports. All incisions were injected with 0.25% Marcaine local anesthetic. Skin was closed with 4-0 Biosyn, sterile dressings were placed, and patient was taken to the recovery room in stable condition. MD ALON PARIS/[id number] MTDD
--- NOTE | 2018-03-30 11:35 | DS ---
Physical Examination Vital Signs: Vital Signs Temperature 98.8 F 03/30/18 09:50 Pulse Rate 86 03/30/18 09:50 Respiratory Rate 18 03/30/18 09:50 Blood Pressure 139/74 03/30/18 09:50 O2 Sat by Pulse Oximetry (%) 94 L 03/30/18 09:00 Findings/Remarks: FEVER OVERNIGHT TOLERATING MEALS PASSING FLATUS NO BM Constitutional: Yes: Mild Distress Eyes: Yes: WNL HENT: Yes: WNL Neck: Yes: WNL Cardiovascular: Yes: WNL Respiratory: Yes: WNL Gastrointestinal: Yes: WNL Renal/: Yes: WNL Musculoskeletal: Yes: WNL Extremities: Yes: WNL Edema: No Peripheral Pulses WNL: Yes Integumentary: Yes: WNL Wound/Incision: Yes: Clean/Dry Neurological: Yes: WNL ...Motor Strength: WNL Psychiatric: Yes: WNL Labs: CBC, BMP 03/29/18 06:00 03/29/18 06:00 Discharge Summary Reason For Visit: APPENDICITIS Current Active Problems Abdominal pain (Acute) Appendicitis (Acute) Constipation (Acute) Nausea (Acute) Penicillin allergy (Acute) Perforated appendicitis (Acute) Peritonitis (Acute) SIRS (systemic inflammatory response syndrome) (Acute) Vomiting and diarrhea (Acute) Procedures: Principal: LAPROSCOPIC APPENDECTOMY Hospital Course: CT SCAN ABD REVEALED PERFORATED APPENDIX, LAPROSCOPIC APPENDECTOMY DONE BY SURGERY , IV ABX, AND POSTOP FOLLOW UP Condition: Improved - Instructions Diet, Activity, Other Instructions: LOW SALT DIET SEE DR NEGRETE IN 3-4 DAYS FOR LOABS AND FOLLOW UP Referrals: Tish Negrete MD [Primary Care Provider] - Disposition: HOME - Home Medications Comprehensive Discharge Medication List: Ambulatory Orders Albuterol 2.5/Ipratropium 0.5 [Duoneb -] 1 neb IH QID 11/04/15 Amlodipine Besylate [Norvasc -] 5 mg PO DAILY 11/04/15 Aspirin [ASA -] 81 mg PO DAILY 11/04/15 Levothyroxine [Synthroid -] 88 mcg PO DAILY 11/04/15 Albuterol 0.083% Nebulizer Teresa [Ventolin 0.083% Nebulizer Soln -] 1 amp NEB Q4H PRN #1 amp 11/07/15 Acetaminophen [Tylenol .Extra-Strength -] 500 mg PO Q6H PRN tablet 03/30/18
[2018-03-30 12:36] LABS: HEMATOCRIT 36.5 % (32.4-45.2); HEMOGLOBIN 11.9 GM/dL (10.7-15.3); MCHC 32.6 g/dl (32.0-36.0); MEAN CELL VOLUME 82.7 fl (80-96); MEAN PLT VOLUME 7.6 fl (7.5-11.1); PLATELET COUNT 377 K/MM3 (134-434); RBC 4.42 M/mm3 (3.60-5.2); RDW 16.5 % (11.6-15.6)
[2018-03-30 13:12] LABS: CHLORIDE 100 mmol/L (98-107); POTASSIUM 3.9 mmol/L (3.5-5.1); SODIUM 140 mmol/L (136-145)
[2018-03-30 13:19] LABS: ALBUMIN 2.5 g/dl (3.4-5.0); ALK PHOS 78 U/L (45-117); ANION GAP 7 (8-16); BILIRUBIN,TOTAL 0.2 mg/dL (0.2-1.0); BLOOD UREA NITROGEN 10 mg/dL (7-18); CALCIUM 9.3 mg/dL (8.5-10.1); CO2 33 mmol/L (21-32); CREATININE 0.5 mg/dL (0.55-1.02); GLUCOSE,RANDOM 124 mg/dL (74-106); SGOT/AST 49 U/L (15-37); SGPT/ALT 48 U/L (12-78); TOT PROT 6.7 g/dl (6.4-8.2)
--- NOTE | 2018-03-30 14:09 | PN ---
Progress Note, Physician Chief Complaint: ID Intermittent low grade temps noted along with mild leukocytosis - Current Medication List Current Medications: Active Medications Acetaminophen (Tylenol -) 500 mg PO Q6H PRN PRN Reason: FEVER Last Admin: 03/29/18 21:29 Dose: 500 mg Heparin Sodium (Porcine) (Heparin -) 5,000 unit SQ TID JOSE Last Admin: 03/30/18 06:16 Dose: Not Given Clindamycin Phosphate (Cleocin 900 Mg Premix Ivpb -) 900 mg in 50 mls @ 100 mls /hr IVPB Q8H-IV JOSE; Protocol Last Admin: 03/30/18 10:59 Dose: 100 mls/hr Aztreonam 2 gm/ Dextrose 100 mls @ 100 mls/hr IVPB Q8H-IV JOSE; Protocol Last Admin: 03/30/18 09:51 Dose: 100 mls/hr Levothyroxine Sodium (Synthroid -) 88 mcg PO ACBK JOSE Last Admin: 03/30/18 06:16 Dose: 88 mcg Ondansetron HCl (Zofran Injection) 4 mg IVPUSH Q6H PRN PRN Reason: NAUSEA AND/OR VOMITING Senna (Senna -) 1 tab PO HS JOSE Last Admin: 03/29/18 21:32 Dose: Not Given - Objective Vital Signs: Vital Signs Temperature 98.8 F 03/30/18 09:50 Pulse Rate 86 03/30/18 09:50 Respiratory Rate 18 03/30/18 09:50 Blood Pressure 139/74 03/30/18 09:50 O2 Sat by Pulse Oximetry (%) 94 L 03/30/18 09:00 Constitutional: Yes: Well Nourished, No Distress HENT: Yes: WNL, Atraumatic Neck: Yes: WNL, Supple Cardiovascular: Yes: S1, S2 Respiratory: Yes: WNL, Regular, CTA Bilaterally Gastrointestinal: Yes: Soft, Tenderness Labs: CBC, BMP 03/30/18 12:08 03/30/18 12:08 INR, PTT INR 1.06 (0.82-1.09) 03/24/18 06:45 Problem List - Problems (1) Peritonitis Code(s): K65.9 - PERITONITIS, UNSPECIFIED (2) Appendicitis Code(s): K37 - UNSPECIFIED APPENDICITIS Qualifiers: Appendicitis type: acute appendicitis Acute appendicitis type: with localized peritonitis Qualified Code(s): K35.3 - Acute appendicitis with localized peritonitis (3) Perforated appendicitis Code(s): K35.2 - ACUTE APPENDICITIS WITH GENERALIZED PERITONITIS (4) Penicillin allergy Code(s): Z88.0 - ALLERGY STATUS TO PENICILLIN Assessment/Plan Laboratory Tests 03/30/18 12:08 WBC 13.0 H Hgb 11.9 Plt Count 377 D Assessment 1. Stop antibiotic Concern for intrabd abscess fever WBC pain on antibiotics high risk abscess 2. CT abd pelvis 3. CRP ESR 4. Discussed with Dr Penelope Barbosa MD
[2018-03-30] MEDS: SENNOSIDES 8.6MG TABLET (FP) PO SCH (21:34)
[2018-03-31] MEDS: HEPARIN NA (PORCINE) 5,000 UNITS/ML 1ML VIAL SQ SCH ×2 (06:22→14:17)
[2018-03-31] MEDS: LEVOTHYROXINE NA 88 MCG TABLET (FP) PO SCH (06:22)
--- NOTE | 2018-03-31 07:19 | PN ---
Progress Note (short form) - Note Progress Note: PATIENT WAS SCHEDULED FOR DISCHARGE TODAY HOWEVER CT ABD SHOWED FLUID COLLECTION WILL AWAIT SURGERY FOLLOW UP AND ID WORKUP Problem List - Problems (1) Abdominal pain Code(s): R10.9 - UNSPECIFIED ABDOMINAL PAIN Qualifiers: Abdominal location: unspecified location Qualified Code(s): R10.9 - Unspecified abdominal pain (2) Appendicitis Code(s): K37 - UNSPECIFIED APPENDICITIS Qualifiers: Appendicitis type: acute appendicitis Acute appendicitis type: with localized peritonitis Qualified Code(s): K35.3 - Acute appendicitis with localized peritonitis (3) Constipation Code(s): K59.00 - CONSTIPATION, UNSPECIFIED Qualifiers: Constipation type: unspecified constipation type Qualified Code(s): K59.00 - Constipation, unspecified (4) Peritonitis Code(s): K65.9 - PERITONITIS, UNSPECIFIED
[2018-03-31 07:43] LABS: HEMATOCRIT 34.9 % (32.4-45.2); HEMOGLOBIN 11.4 GM/dL (10.7-15.3); MCH 26.9 pg (25.7-33.7); MCHC 32.6 g/dl (32.0-36.0); MEAN CELL VOLUME 82.5 fl (80-96); MEAN PLT VOLUME 7.5 fl (7.5-11.1); PLATELET COUNT 389 K/MM3 (134-434); RBC 4.23 M/mm3 (3.60-5.2); RDW 16.9 % (11.6-15.6); WHITE BLOOD COUNT 12.8 K/mm3 (4.0-10.0)
[2018-03-31 08:23] LABS: ALBUMIN 2.3 g/dl (3.4-5.0); ANION GAP 7 (8-16); BILIRUBIN,TOTAL 0.2 mg/dL (0.2-1.0); BLOOD UREA NITROGEN 11 mg/dL (7-18); CALCIUM 8.8 mg/dL (8.5-10.1); CHLORIDE 102 mmol/L (98-107); CO2 31 mmol/L (21-32); CREATININE 0.5 mg/dL (0.55-1.02); GLUCOSE,RANDOM 85 mg/dL (74-106); POTASSIUM 4.4 mmol/L (3.5-5.1); SGOT/AST 41 U/L (15-37); SGPT/ALT 45 U/L (12-78); SODIUM 140 mmol/L (136-145); TOT PROT 6.1 g/dl (6.4-8.2)
[2018-03-31 08:24] LABS: ALK PHOS 64 U/L (45-117)
--- NOTE | 2018-03-31 09:17 | PN ---
Progress Note, Physician Chief Complaint: ID Looks feels well Low grade fever only NAD CT finding seen - Current Medication List Current Medications: Active Medications Acetaminophen (Tylenol -) 500 mg PO Q6H PRN PRN Reason: FEVER Last Admin: 03/29/18 21:29 Dose: 500 mg Heparin Sodium (Porcine) (Heparin -) 5,000 unit SQ TID [facility] Last Admin: 03/31/18 06:22 Dose: 5,000 unit Levothyroxine Sodium (Synthroid -) 88 mcg PO ACBK [facility] Last Admin: 03/31/18 06:22 Dose: 88 mcg Ondansetron HCl (Zofran Injection) 4 mg IVPUSH Q6H PRN PRN Reason: NAUSEA AND/OR VOMITING Senna (Senna -) 1 tab PO HS [facility] Last Admin: 03/30/18 21:34 Dose: Not Given - Objective Vital Signs: Vital Signs Temperature 98.3 F 03/31/18 06:00 Pulse Rate 79 03/31/18 06:00 Respiratory Rate 18 03/31/18 06:00 Blood Pressure 125/89 03/31/18 06:00 O2 Sat by Pulse Oximetry (%) 95 03/30/18 21:00 HENT: Yes: WNL, Atraumatic Neck: Yes: Supple Cardiovascular: Yes: Regular Rate and Rhythm, S1, S2 Respiratory: Yes: WNL, Regular, CTA Bilaterally, Tachypnea Gastrointestinal: Yes: Tenderness Labs: CBC, BMP 03/31/18 06:20 03/31/18 06:20 INR, PTT INR 1.06 (0.82-1.09) 03/24/18 06:45 Problem List - Problems (1) Peritonitis Code(s): K65.9 - PERITONITIS, UNSPECIFIED (2) Appendicitis Code(s): K37 - UNSPECIFIED APPENDICITIS Qualifiers: Appendicitis type: acute appendicitis Acute appendicitis type: with localized peritonitis Qualified Code(s): K35.3 - Acute appendicitis with localized peritonitis (3) Perforated appendicitis Code(s): K35.2 - ACUTE APPENDICITIS WITH GENERALIZED PERITONITIS (4) Penicillin allergy Code(s): Z88.0 - ALLERGY STATUS TO PENICILLIN Assessment/Plan Laboratory Tests 03/31/18 03/31/18 06:20 06:20 WBC 12.8 H Hgb 11.4 Plt Count 389 C-Reactive Protein 5.4 H Assessment Fever WBC secondary to small fluid collections Not ill appearing Plan PO antibiotics levoflox flagyl for 7 days outpt [facility]
[2018-03-31 13:25] VITALS: BP 123/73; PULSE 94
[2018-03-31 13:31] VITALS: TEMP 98.9
--- NOTE | 2018-03-31 13:39 | DS ---
Physical Examination Vital Signs: Vital Signs Temperature 98.9 F 03/31/18 13:30 Pulse Rate 94 H 03/31/18 13:24 Respiratory Rate 17 03/31/18 13:24 Blood Pressure 123/73 03/31/18 13:24 O2 Sat by Pulse Oximetry (%) 95 03/30/18 21:00 Constitutional: Yes: Well Nourished, No Distress, Calm Cardiovascular: Yes: Regular Rate and Rhythm Respiratory: Yes: Regular Gastrointestinal: Yes: Normal Bowel Sounds, Soft Musculoskeletal: Yes: WNL Extremities: Yes: WNL Edema: No Peripheral Pulses WNL: Yes Wound/Incision: Yes: Dressing Dry and Intact Neurological: Yes: Alert, Oriented Psychiatric: Yes: Alert, Oriented Labs: CBC, BMP 03/31/18 06:20 03/31/18 06:20 Discharge Summary Reason For Visit: APPENDICITIS Current Active Problems Abdominal pain (Acute) Appendicitis (Acute) Constipation (Acute) Nausea (Acute) Penicillin allergy (Acute) Perforated appendicitis (Acute) Peritonitis (Acute) SIRS (systemic inflammatory response syndrome) (Acute) Vomiting and diarrhea (Acute) Hospital Course: This is a 67 YOF with h/o HTN, HLD, CAD, kidney stones, asthma, and hypothyroidism who p/w non-radiating constant right>left lower abdominal cramping which occasionally becomes severe and has twinges of sharper epigastric pain for the past three days. This pain is alongside malaise, constipation, abdominal distentions, and inability to pass gas for the past three days, nausea, fever since last night. She describes not being able to have a bowel movement for several days until this morning when she had three small loose stools which were non-black and non-bloody. She tried Milk of Magnesia last night for the constipation, and Tylenol for the fever. She has never had symptoms like this before in her life. Her PCP is Dr. Arteaga, laboratory aide is Dr. Marr, orthopedist is Dr. Anne. Operative Date: 03/24/18 Pre-Operative Diagnosis: acute appendicits Operation: laparoscopic appendectomy Findings: gangrenous perforated appendicits with ramon-appendiceal abscess Post-Operative Diagnosis: Other (perforated appendicits with abscess) Surgeon: Keyshawn Mcmanus Marketing Sales Consultant: James Ha Condition: Stable - Instructions Diet, Activity, Other Instructions: Postoperative instructions: You had a laparoscopic appendectomy on 03/24/[address] Keyshawn Mcmanus of [facility]. Activity: Resume your usual activities gradually, but no heavy exertion or lifting more than 10-20 pounds for 1 month. It is good to walk every day and continue to use your breathing machine (incentive spirometer) to take deep breaths regularly. Remove dressings 48 hours after surgery, if not already off; if there are sticky tapes or glue underneath, they will fall off by themselves. You may shower daily starting then, just pat the incision areas dry. No bath or swimming until skin incisions have healed. Eat lightly at first, but advance to a low-salt diet as tolerated. Pain: For pain, you may use Tylenol (acetaminophen) every 4-6 hours as needed. If you are prescribed a Tylenol/narcotic combination for severe pain, use it instead of plain Tylenol as needed and switch back when your pain starts decreasing. Do not take more than 4000mg of acetaminophen in a day. Take medications as prescribed or indicated on the labeling. Follow-up: Call Dr. Mcmanus' office at [phone] to make your postop appointment (Monday ~2 weeks after surgery). Clinic is held in the [facility] on the first floor of [facility]. Call the office if you have: * increasing pain not responsive to pain medication * fever of 101F or higher * vomiting * unusual or increasing bleeding or drainage from wounds * increasing redness or swelling at wound sites Also, see your primary medical doctor within 1-2 weeks. LOW SALT DIET SEE DR ARTEAGA IN 3-4 DAYS FOR LABS AND FOLLOW UP Referrals: Keyshawn Mcmanus MD [Staff Physician] - Tish Arteaga MD [Primary Care Provider] - Disposition: HOME - Home Medications Comprehensive Discharge Medication List: Ambulatory Orders Albuterol 2.5/Ipratropium 0.5 [Duoneb -] 1 neb IH QID 11/04/15 Amlodipine Besylate [Norvasc -] 5 mg PO DAILY 11/04/15 Aspirin [ASA -] 81 mg PO DAILY 11/04/15 Levothyroxine [Synthroid -] 88 mcg PO DAILY 11/04/15 Albuterol 0.083% Nebulizer Teresa [Ventolin 0.083% Nebulizer Soln -] 1 amp NEB Q4H PRN #1 amp 11/07/15 Acetaminophen [Tylenol .Extra-Strength -] 500 mg PO Q6H PRN tablet 03/30/18 Sennosides [Senna -] 1 tab PO HS #30 tablet 03/31/18 levoFLOXacin [Levaquin -] 500 mg PO DAILY #7 tablet 03/31/18 metroNIDAZOLE [Flagyl -] 500 mg PO TID #21 tablet 03/31/18
[2018-03-31] MEDS ORDERED: metroNIDAZOLE 250 MG TABLET PO SCH (14:00)
== END 2018-03-31 17:45 | disposition home or self-care (01) | DRG 340 ==
LOC: JER 06:02 → JERBED 13:05 → J5S 18:52
PROVIDERS: ADMIT Family Medicine; ATTEND Family Medicine
PROC: 0DTJ4ZZ Resection of Appendix, Percutaneous Endoscopic Approach (ICD-10-PCS; principal; 2018-03-24 13:53)
DX: K35.2 Acute appendicitis with generalized peritonitis (principal); I25.10 Atherosclerotic heart disease of native coronary artery without angina pectoris; E78.5 Hyperlipidemia, unspecified; I10 Essential (primary) hypertension; E03.9 Hypothyroidism, unspecified; J45.909 Unspecified asthma, uncomplicated; K59.00 Constipation, unspecified; R00.0 Tachycardia, unspecified; J06.9 Acute upper respiratory infection, unspecified; D72.829 Elevated white blood cell count, unspecified; R50.9 Fever, unspecified; E66.9 Obesity, unspecified; Z68.35 Body mass index [BMI] 35.0-35.9, adult; R11.2 Nausea with vomiting, unspecified; R19.7 Diarrhea, unspecified; Z88.0 Allergy status to penicillin; Z87.442 Personal history of urinary calculi; Z87.891 Personal history of nicotine dependence
CPT/HCPCS: 36415; 71045-TC-FY; 71046-TC-FY; 74019-TC-FY; 74176-TC; 74177-TC; 80048; 80053; 81003; 81015; 82550; 82553; 82803; 83605; 83690; 83735; 84484; 85025; 85027; 85610; 85651; 85730; 86140; 86850; 86900; 86901; 87040; 87086; 88304-TC; 93005; 93010; 93971-TC; 94760; 99283-25; J0131; J1644; J7030

== ENCOUNTER 2018-04-19 13:35 | Inpatient (IN) | payer OTHER ==
[2018-04-19 13:52] VITALS: BMI 34.0
[2018-04-19] MEDS ORDERED: ACETAMINOPHEN 1000 MG/100 ML VIAL (NON FORMULARY) IVPB ONE (16:05)
[2018-04-19] MEDS ORDERED: SODIUM CHLORIDE 1,000 ML IV STA (16:05)
[2018-04-19 16:22] LABS: BASO % 0.8 % (0-2.0); EOS % 2.1 % (0-4.5); HEMATOCRIT 39.7 % (32.4-45.2); LYMPH % 33.9 % (8-40); MCH 27.4 pg (25.7-33.7); MCHC 32.7 g/dl (32.0-36.0); MEAN CELL VOLUME 83.9 fl (80-96); MEAN PLT VOLUME 8.7 fl (7.5-11.1); MONO % 10.5 % (3.8-10.2); NEUT % 52.7 % (42.8-82.8); PLATELET COUNT 212 K/MM3 (134-434); RBC 4.73 M/mm3 (3.60-5.2); RDW 17.3 % (11.6-15.6); WHITE BLOOD COUNT 8.1 K/mm3 (4.0-10.0)
[2018-04-19 16:34] LABS: INR 1.04 (0.82-1.09); PROTHROMBIN TIME (PATIENT) 11.7 SEC (9.7-13.0)
[2018-04-19] MEDS ORDERED: ONDANSETRON 4 MG/2 ML VIAL ONE (16:34)
[2018-04-19] MEDS ORDERED: ACETAMINOPHEN INJECTION 100 ML IVPB ONE (16:34)
[2018-04-19] MEDS: ONDANSETRON 4 MG/2 ML VIAL IVPB ONE ×2 (16:35→17:09)
[2018-04-19 16:36] LABS: ACTIVATED PTT 30.1 SECONDS (25.2-36.5)
[2018-04-19 16:46] LABS: ALBUMIN 3.1 g/dl (3.4-5.0); ANION GAP 8 (8-16); BILIRUBIN,TOTAL 0.3 mg/dL (0.2-1.0); BLOOD UREA NITROGEN 8 mg/dL (7-18); CALCIUM 9.3 mg/dL (8.5-10.1); CHLORIDE 105 mmol/L (98-107); CO2 30 mmol/L (21-32); CREATININE 0.6 mg/dL (0.55-1.02); GLUCOSE,RANDOM 68 mg/dL (74-106); LIPASE 139 U/L (73-393); POTASSIUM 4.1 mmol/L (3.5-5.1); SGOT/AST 21 U/L (15-37); SGPT/ALT 22 U/L (12-78); SODIUM 143 mmol/L (136-145); TOT PROT 7.3 g/dl (6.4-8.2)
[2018-04-19 16:47] LABS: ALK PHOS 60 U/L (45-117)
--- NOTE | 2018-04-19 18:22 | PDOC ---
History of Present Illness <Dmitry Quesada - Last Filed: 04/19/18 18:25> <Elham Tavarez - Last Filed: 04/19/18 20:08> - History of Present Illness Initial Comments: 04/19/18 18:19 "The patient is a 67 year old female, with a significant PMH of HTN, HLD, CAD, kidney stones, asthma, hypothyroidism and appendectomy (03/24/18) who presents to the emergency department with 5 days of diffuse abdominal pain. The patient states she had surgery for a ruptured appy on 03/24/[address] Mcmanus. The patient states after the surgery she was kept for 8 days and placed on IV antibiotics. She was discharged on a course of Augmentin which she has finished. Pt denies any fevers but reports diffuse pain that is more severe in the RLQ. Denies N/V. Denies diarrhea/constipation. The patient denies chest pain, shortness of breath, headache and dizziness. Denies fever, chills, nausea, vomit, diarrhea and constipation. Denies dysuria, frequency, urgency and hematuria. Allergies: amoxicillin, penicillins PCP: Dr. Negrete " <Emeka Whelan - Last Filed: 04/21/18 09:02> - General Chief Complaint: Pain Stated Complaint: ABD PAIN (POST-OP) Time Seen by Provider: 04/19/18 15:50 Past History <Dmitry Quesada - Last Filed: 04/19/18 18:25> <Elham Tavarez - Last Filed: 04/19/18 20:08> - Past Medical History Asthma: Yes Cardiac Disorders: Yes (BLOCKAGE IN ARTERY 60%/ 5yrs ago At [facility]) COPD: No HTN: Yes Hypercholesterolemia: Yes Kidney Stones: Yes Thyroid Disease: Yes - Surgical History Abdominal Surgery: No Appendectomy: No Cardiac Surgery: No Cholecystectomy: No Gastric Stapling: No Orthopedic Surgery: Yes - Suicide/Smoking/Psychosocial Hx Smoking Status: Yes Smoking History: Former smoker Have you smoked in the past 12 months: No Number of Cigarettes Smoked Daily: 0 If you are a former smoker, when did you quit?: 1995 Information on smoking cessation initiated: Yes Hx Alcohol Use: No Drug/Substance Use Hx: No Substance Use Type: None Hx Substance Use Treatment: No <Emeka Whelan - Last Filed: 04/21/18 09:02> - Past Medical History Allergies/Adverse Reactions: Allergies Allergy/AdvReac Type Severity Reaction Status Date / Time amoxicillin [Amoxicillin] Allergy Severe Rash Verified 03/24/18 06:24 Penicillins Allergy Severe Rash Verified 03/24/18 06:24 BURAK AdvReac Vomiting Uncoded 03/24/18 06:24 POLLOCK AdvReac Vomiting Uncoded 03/24/18 06:24 Home Medications: Ambulatory Orders Amlodipine Besylate [Norvasc -] 5 mg PO DAILY 11/04/15 Aspirin [ASA -] 81 mg PO DAILY 11/04/15 Levothyroxine [Synthroid -] 88 mcg PO DAILY 11/04/15 Acetaminophen [Tylenol .Extra-Strength -] 500 mg PO Q6H PRN tablet 03/30/18 Sennosides [Senna -] 1 tab PO HS PRN #30 tablet 03/31/18 Review of Systems - Review of Systems Comments:: 04/19/18 18:21 "GENERAL/CONSTITUTIONAL: No fever or chills. No weakness. HEAD, EYES, EARS, NOSE AND THROAT: No change in vision. No ear pain or discharge. No sore throat. CARDIOVASCULAR: No chest pain or shortness of breath. RESPIRATORY: No cough, wheezing, or hemoptysis. GASTROINTESTINAL: + abdominal pain. No nausea, vomiting, diarrhea or constipation. GENITOURINARY: No dysuria, frequency, or change in urination. MUSCULOSKELETAL: No joint or muscle swelling or pain. No neck or back pain. SKIN: No rash NEUROLOGIC: No headache, vertigo, loss of consciousness, or change in strength/ sensation. ENDOCRINE: No increased thirst. No abnormal weight change. HEMATOLOGIC/LYMPHATIC: No anemia, easy bleeding, or history of blood clots. ALLERGIC/IMMUNOLOGIC: No hives or skin allergy. " <Emeka Whelan - Last Filed: 04/21/18 09:02> *Physical Exam - Vital Signs Last Vital Signs Temp Pulse Resp BP Pulse Ox 98.8 F 79 16 136/83 99 04/19/18 13:49 04/19/18 13:49 04/19/18 13:49 04/19/18 13:49 04/19/18 13:49 <Dmitry Quesada - Last Filed: 04/19/18 18:25> - Vital Signs Last Vital Signs Temp Pulse Resp BP Pulse Ox 98.8 F 79 16 136/83 99 04/19/18 13:49 04/19/18 13:49 04/19/18 13:49 04/19/18 13:49 04/19/18 13:49 <Elham Tavarez - Last Filed: 04/19/18 20:08> - Vital Signs Last Vital Signs Temp Pulse Resp BP Pulse Ox 98.8 F 79 16 136/83 99 04/19/18 13:49 04/19/18 13:49 04/19/18 13:49 04/19/18 13:49 04/19/18 13:49 - Physical Exam Comments: 04/19/18 18:21 "GENERAL: Awake, alert, and fully oriented, in no acute distress. HEAD: No signs of trauma EYES: PERRLA, EOMI, sclera anicteric, conjunctiva clear ENT: Auricles normal inspection, hearing grossly normal, nares patent, oropharynx clear without exudates. Moist mucosa NECK: Nontender, no stepoffs, Normal ROM, supple, no lymphadenopathy, JVD, or masses LUNGS: Breath sounds equal, clear to auscultation bilaterally. No wheezes, and no crackles HEART: Regular rate and rhythm, normal S1 and S2, no murmurs, rubs or gallops ABDOMEN: + diffuse TTP, normoactive bowel sounds. No guarding, no rebound. No masses EXTREMITIES: Normal range of motion, no edema. No clubbing or cyanosis. No cords, erythema, or tenderness NEUROLOGICAL: Cranial nerves II through XII intact. 5/5 strength and sensation in all extremities, Normal speech, normal gait, normal cerebellar function SKIN: Warm, Dry, normal turgor, no rashes or lesions noted. " <Emeka Whelan - Last Filed: 04/21/18 09:02> ED Treatment Course - LABORATORY CBC & Chemistry Diagram: 04/19/18 16:10 04/19/18 16:10 - ADDITIONAL ORDERS Additional order review: Laboratory Results 04/19/18 04/19/18 04/19/18 17:07 16:10 16:10 PT with INR 11.70 INR 1.04 PTT (Actin FS) 30.1 Sodium 143 Potassium 4.1 Chloride 105 Carbon Dioxide 30 Anion Gap 8 BUN 8 Creatinine 0.6 Creat Clearance w eGFR > 60 Random Glucose 68 L Lactic Acid 0.9 Calcium 9.3 Total Bilirubin 0.3 AST 21 ALT 22 Alkaline Phosphatase 60 Total Protein 7.3 Albumin 3.1 L Lipase 139 04/19/18 16:10 RBC 4.73 MCV 83.9 MCHC 32.7 RDW 17.3 H MPV 8.7 D Neutrophils % 52.7 D Lymphocytes % 33.9 D Monocytes % 10.5 H Eosinophils % 2.1 Basophils % 0.8 - Medications Given in the ED: ED Medications Discontinued Medications Generic Name Dose Route Start Last Admin Trade Name Lydia PRN Reason Stop Dose Admin Acetaminophen 1,000 mg 04/19/18 16:05 04/19/18 16:35 Ofirmev Injection - IVPB 04/19/18 16:06 1,000 mg ONCE ONE Administration Sodium Chloride 1,000 mls @ 1,000 mls/hr 04/19/18 16:05 04/19/18 16:35 Normal Saline - IV 04/19/18 17:04 1,000 mls/hr ASDIR STA Administration Ondansetron HCl 4 mg 04/19/18 16:05 04/19/18 17:09 Zofran Injection IVPB 04/19/18 16:06 Not Given ONCE ONE <Dmitry Quesada - Last Filed: 04/19/18 18:25> - LABORATORY CBC & Chemistry Diagram: 04/19/18 16:10 04/19/18 16:10 - ADDITIONAL ORDERS Additional order review: Laboratory Results 04/19/18 04/19/18 04/19/18 18:38 17:07 17:07 PT with INR INR PTT (Actin FS) Sodium Potassium Chloride Carbon Dioxide Anion Gap BUN Creatinine Creat Clearance w eGFR Random Glucose Lactic Acid 0.9 Calcium Total Bilirubin AST ALT Alkaline Phosphatase Total Protein Albumin Lipase Urine Color Colorless Urine Appearance Clear Urine pH 7.0 Ur Specific Cornish 1.005 Urine Protein Negative Urine Glucose (UA) Negative Urine Ketones Negative Urine Blood 2+ H Urine Nitrite Negative Urine Bilirubin Negative Urine Urobilinogen Negative Ur Leukocyte Esterase Negative Urine WBC (Auto) 2 Urine RBC (Auto) <1 Ur Epithelial Cells Rare Urine Bacteria Rare Urine Mucus Rare Blood Type O NEGATIVE Antibody Screen Negative 04/19/18 04/19/18 16:10 16:10 PT with INR 11.70 INR 1.04 PTT (Actin FS) 30.1 Sodium 143 Potassium 4.1 Chloride 105 Carbon Dioxide 30 Anion Gap 8 BUN 8 Creatinine 0.6 Creat Clearance w eGFR > 60 Random Glucose 68 L Lactic Acid Calcium 9.3 Total Bilirubin 0.3 AST 21 ALT 22 Alkaline Phosphatase 60 Total Protein 7.3 Albumin 3.1 L Lipase 139 Urine Color Urine Appearance Urine pH Ur Specific Cornish Urine Protein Urine Glucose (UA) Urine Ketones Urine Blood Urine Nitrite Urine Bilirubin Urine Urobilinogen Ur Leukocyte Esterase Urine WBC (Auto) Urine RBC (Auto) Ur Epithelial Cells Urine Bacteria Urine Mucus Blood Type Antibody Screen 04/19/18 16:10 RBC 4.73 MCV 83.9 MCHC 32.7 RDW 17.3 H MPV 8.7 D Neutrophils % 52.7 D Lymphocytes % 33.9 D Monocytes % 10.5 H Eosinophils % 2.1 Basophils % 0.8 - Medications Given in the ED: ED Medications Discontinued Medications Generic Name Dose Route Start Last Admin Trade Name Freq PRN Reason Stop Dose Admin Acetaminophen 1,000 mg 04/19/18 16:05 04/19/18 16:35 Ofirmev Injection - IVPB 04/19/18 16:06 1,000 mg ONCE ONE Administration Sodium Chloride 1,000 mls @ 1,000 mls/hr 04/19/18 16:05 04/19/18 16:35 Normal Saline - IV 04/19/18 17:04 1,000 mls/hr ASDIR STA Administration Ondansetron HCl 4 mg 04/19/18 16:05 04/19/18 17:09 Zofran Injection IVPB 04/19/18 16:06 Not Given ONCE ONE <Elham Tavarez - Last Filed: 04/19/18 20:08> - LABORATORY CBC & Chemistry Diagram: 04/20/18 06:10 04/20/18 06:10 - ADDITIONAL ORDERS Additional order review: Laboratory Results 04/19/18 04/19/18 04/19/18 17:07 16:10 16:10 PT with INR 11.70 INR 1.04 PTT (Actin FS) 30.1 Sodium 143 Potassium 4.1 Chloride 105 Carbon Dioxide 30 Anion Gap 8 BUN 8 Creatinine 0.6 Creat Clearance w eGFR > 60 Random Glucose 68 L Lactic Acid 0.9 Calcium 9.3 Total Bilirubin 0.3 AST 21 ALT 22 Alkaline Phosphatase 60 Total Protein 7.3 Albumin 3.1 L Lipase 139 04/19/18 16:10 RBC 4.73 MCV 83.9 MCHC 32.7 RDW 17.3 H MPV 8.7 D Neutrophils % 52.7 D Lymphocytes % 33.9 D Monocytes % 10.5 H Eosinophils % 2.1 Basophils % 0.8 - RADIOLOGY Radiology Studies Ordered: Category Date Time Status ABDOMEN & PELVIS CT WITH CONTR [CT] Stat CT Scan 04/19/18 16:04 Ordered - Medications Given in the ED: ED Medications Discontinued Medications Generic Name Dose Route Start Last Admin Trade Name Lydia PRN Reason Stop Dose Admin Acetaminophen 1,000 mg 04/19/18 16:05 04/19/18 16:35 Ofirmev Injection - IVPB 04/19/18 16:06 1,000 mg ONCE ONE Administration Sodium Chloride 1,000 mls @ 1,000 mls/hr 04/19/18 16:05 04/19/18 16:35 Normal Saline - IV 04/19/18 17:04 1,000 mls/hr ASDIR STA Administration Ondansetron HCl 4 mg 04/19/18 16:05 04/19/18 17:09 Zofran Injection IVPB 04/19/18 16:06 Not Given ONCE ONE <Emeka Whelan - Last Filed: 04/21/18 09:02> Medical Decision Making - Medical Decision Making 04/19/18 20:[address] Ha's answering service, surgeon cabinet professional, case was discussed. Documentation prepared by Elham Tavarez, acting as medical aides teacher for Emeka Whelan MD. 04/19/18 20:08 <Elham Tavarez - Last Filed: 04/19/18 20:08> - Medical Decision Making 04/19/18 18:21 67 F with diffuse abdominal pain s/p surgery for ruptured appy. Concerning for abscess formation. - Labs - CTAP CT shows improvement in fluid collections, with two small persistent collections in pelvis. Dr. Ha at bedside to evaluate. Pt admitted to hospitalist for IV abx, possible intervention <CleopatraEmeka - Last Filed: 04/21/18 09:02> *DC/Admit/Observation/Transfer - Attestations Scribe Attestion: 04/19/18 18:26 Documentation prepared by Dmitry Quesada, acting as medical aides teacher for Emeka Whelan MD. <Dmitry Quesada - Last Filed: 04/19/18 18:25> <Elham Tavarez - Last Filed: 04/19/18 20:08> <Emeka Whelan - Last Filed: 04/21/18 09:02> Diagnosis at time of Disposition: Pain
[2018-04-19 19:15] LABS: URINE APPEARANCE CLEAR; URINE BILIRUBIN NEGATIVE (<2.0 mg/dL); URINE COLOR COLORLESS; URINE GLUCOSE (UA) NEGATIVE (NEGATIVE); URINE KETONE NEGATIVE (NEGATIVE); URINE LEUK ESTERASE NEGATIVE (NEGATIVE); URINE NITRITE NEGATIVE (NEGATIVE); URINE PROTEIN NEGATIVE (NEGATIVE); URINE UROBILINOGEN NEGATIVE mg/dL (0.2-1.0)
[2018-04-19 19:30] LABS: EPI CELLS RARE /HPF (FEW); URINE BACTERIA RARE /hpf (NONE SEEN); URINE MUCUS RARE
--- NOTE | 2018-04-19 20:15 | CONSULT ---
Consult Consult Specialty:: general surgery Referred by:: Ou - ED Reason for Consultation:: Intra-abdominal collection - History of Present Illness Chief Complaint: Abdominal pain and Malaise History of Present Illness: 67yo female PMH HTN, HLD, CAD, kidney stones, asthma, and hypothyroidism s/p lap appendectomy for a perforated appendicitis 03/24/18. She was treated for intra-abdominal collections for a week with IV antibiotics, discharged on . She reports indigestion and intermittend abdominal pain since discharge. This pain is alongside malaise, constipation, abdominal distentions, and inability to pass gas for the past three days, nausea, fever since last night. She describes not being able to have a bowel movement for several days until this morning when she had three small loose stools which were non-black and non- bloody. She tried Milk of Magnesia last night for the constipation, and Tylenol for the fever. She has never had symptoms like this before in her life. Her PCP is Dr. Negrete, automobile or truck rental dispatcher is Dr. Marr, orthopedist is Dr. Anne. CT scan yesterday showed improvement of her intra-abdominal collections. There are now 3 small collection that do not require drainage and will resolve with time. She was see on 04/18/18 in surgery clinic and was recommended to include probiotic and f/u with PMD. - History Source History Provided By: Patient, Medical Record Limitations to Obtaining History: No Limitations - Past Medical History Cardio/Vascular: Yes: HTN Pulmonary: Yes: Asthma Gastrointestinal: Yes: Constipation Endocrine: Yes: Hypothyroidism - Past Surgical History Past Surgical History: Yes: None - Alcohol/Substance Use Hx Alcohol Use: No - Smoking History Smoking history: Former smoker Have you smoked in the past 12 months: No Aproximately how many cigarettes per day: 0 If you are a former smoker, when did you quit?: 1995 - Social History ADL: Independent History of Recent Travel: No Home Medications - Allergies Allergies/Adverse Reactions: Allergies Allergy/AdvReac Type Severity Reaction Status Date / Time amoxicillin [Amoxicillin] Allergy Severe Rash Verified 03/24/18 06:24 Penicillins Allergy Severe Rash Verified 03/24/18 06:24 BURAK AdvReac Vomiting Uncoded 03/24/18 06:24 POLLOCK AdvReac Vomiting Uncoded 03/24/18 06:24 - Home Medications Home Medications: Ambulatory Orders Amlodipine Besylate [Norvasc -] 5 mg PO DAILY 11/04/15 Aspirin [ASA -] 81 mg PO DAILY 11/04/15 Levothyroxine [Synthroid -] 88 mcg PO DAILY 11/04/15 Acetaminophen [Tylenol .Extra-Strength -] 500 mg PO Q6H PRN tablet 03/30/18 Sennosides [Senna -] 1 tab PO HS PRN #30 tablet 03/31/18 Family Disease History - Family Disease History Family Disease History: Heart Disease: Mother, CA: Father Review of Systems - Review of Systems Constitutional: denies: Chills, Fever Eyes: denies: Blurred Vision, Recent Change in Vision HENT: denies: Difficult Swallowing, Throat Pain Neck: denies: Decreased ROM, Lumps, Pain on Movement Cardiovascular: denies: Chest Pain, Palpitations Respiratory: denies: Cough, SOB Gastrointestinal: reports: Abdominal Pain, Bloating, Constipation, Indigestion. denies: Dysphagia, Melena, Nausea, Rectal Bleeding, Vomiting, Vomiting Blood Genitourinary: denies: Burning, Discharge, Flank Pain Breasts: denies: Pain, Skin Changes Musculoskeletal: reports: Back Pain, Extremity Pain, Joint Pain, Joint Swelling Integumentary: denies: Erythema, Lesions, Lump Neurological: denies: Seizure, Syncope Endocrine: denies: Unexplained Weight Gain, Unexplained Weight Loss Hematology/Lymphatic: denies: Easily Bruised, Excessive Bleeding Psychiatric: reports: Anxiety, Depression Physical Exam Vital Signs: Vital Signs Temperature 98.8 F 04/19/18 13:49 Pulse Rate 79 04/19/18 13:49 Respiratory Rate 16 04/19/18 13:49 Blood Pressure 136/83 04/19/18 13:49 O2 Sat by Pulse Oximetry (%) 99 04/19/18 13:49 Vital Signs Period Temp Pulse Resp BP Sys/Dai Pulse Ox Last 24 Hr 98.0 F-98.8 F 61-79 16-21 118-143/63-86 96-99 Constitutional: Yes: Well Nourished, No Distress, Calm, Obese Eyes: Yes: Conjunctiva Clear, EOM Intact HENT: Yes: Atraumatic, Normocephalic Neck: Yes: Supple, Trachea Midline Cardiovascular: Yes: Regular Rate and Rhythm, S1, S2 Respiratory: Yes: Regular, CTA Bilaterally Gastrointestinal: Yes: Normal Bowel Sounds, Soft, Abdomen, Obese, Distention ( soft but distended, no tympannic), Tenderness (mild discomfort of examination of bilateral lower quadrants). No: Tenderness, Epigastrium, Tenderness, Rebound ...Rectal Exam: Yes: Sphincter Tone Normal. No: Hemorrhoids/External, Hemorrhoids/Internal, Mass Renal/: No: CVA Tenderness - Left, CVA Tenderness - Right Extremities: No: Cool, Cyanosis Edema: No Peripheral Pulses WNL: Yes Integumentary: No: Jaundice Wound/Incision: Yes: Clean/Dry, Well Approximated, Open to air Neurological: Yes: Alert, Oriented Psychiatric: Yes: Alert, Oriented Labs: CBC, BMP 04/19/18 16:10 04/19/18 16:10 Imaging - Results Cat Scan: Report Reviewed, Image Reviewed Problem List - Problems (1) Intra-abdominal abscess post-procedure Assessment/Plan: 67 yo female MMP s/p Lap appendectomy for perforated appendicitis complicated by an intra-abdominal collection. She now has a variety of complaints about bowel habits and abdominal discomfort despite incremental improvement of the collection on repeat imaging. She does not need any further surgical intervention. Advance diet as tolerated IVF hyration ID consultation Probitics symptomatic treatment (anagesia, simethicone, etc.) She can followup in surgery clinic 1 month following discharge will follow peripherally Thank you for the opportunity to participate in the care of this patient. Code(s): T81.4XXA - INFECTION FOLLOWING A PROCEDURE, INITIAL ENCOUNTER; K65.1 - PERITONEAL ABSCESS Qualifiers: Encounter type: subsequent encounter Qualified Code(s): T81.4XXD - Infection following a procedure, subsequent encounter; K65.1 - Peritoneal abscess (2) Perforated appendicitis Code(s): K35.2 - ACUTE APPENDICITIS WITH GENERALIZED PERITONITIS (3) Pain Code(s): R52 - PAIN, UNSPECIFIED (4) Abdominal pain Code(s): R10.9 - UNSPECIFIED ABDOMINAL PAIN Qualifiers: Abdominal location: unspecified location Qualified Code(s): R10.9 - Unspecified abdominal pain (5) Asthma Code(s): J45.909 - UNSPECIFIED ASTHMA, UNCOMPLICATED Qualifiers: Asthma severity: unspecified severity Asthma complication type: uncomplicated (6) Constipation Code(s): K59.00 - CONSTIPATION, UNSPECIFIED Qualifiers: Constipation type: unspecified constipation type Qualified Code(s): K59.00 - Constipation, unspecified
[2018-04-19] MEDS ORDERED: DEXTROSE 5%-0.45% SALINE 1,000 ML IV SCH (21:30)
[2018-04-19] MEDS ORDERED: morphine SULFATE 4 MG/ML VIAL IVPUSH PRN (21:34)
--- NOTE | 2018-04-19 22:54 | HP ---
Admitting History and Physical - Primary Care Physician PCP: Tish Negrete - Admission Chief Complaint: abdominal pain History of Present Illness: 67 y/o woman PMHx of HTN, HLD, CAD, Asthma. Hypothyroidism, Renal Stones, Appendectomy (03/24/18). Who presents to the ED with abdominal pain x 4 days. The patient states she had surgery for a ruptured appendicitis on 03/24/[address] Mcmanus. The patient states after the surgery she was kept for 8 days and placed on IV antibiotics. She was discharged on a course of Augmentin which she has finished. Pt denies any fevers but reports diffuse pain that is more severe in the RLQ. Patient also reports having a fungal like rash under her abdomen that she was treating with Nystatin cream and powder. Patient denies fever, chills, cough, SOB, CP, N/V/D, dysuria History Source: Patient, Family Member Limitations to Obtaining History: No Limitations - Past Medical History Cardiovascular: Yes: HTN Pulmonary: Yes: Asthma Gastrointestinal: Yes: Constipation Endocrine: Yes: Hypothyroidism - Past Surgical History Past Surgical History: Yes: Appendectomy - Smoking History Smoking history: Former smoker Have you smoked in the past 12 months: No Aproximately how many cigarettes per day: 0 If you are a former smoker, when did you quit?: 1995 - Alcohol/Substance Use Hx Alcohol Use: No - Social History ADL: Independent History of Recent Travel: No Home Medications - Allergies Allergies/Adverse Reactions: Allergies Allergy/AdvReac Type Severity Reaction Status Date / Time amoxicillin [Amoxicillin] Allergy Severe Rash Verified 03/24/18 06:24 Penicillins Allergy Severe Rash Verified 03/24/18 06:24 BURAK AdvReac Vomiting Uncoded 03/24/18 06:24 POLLOCK AdvReac Vomiting Uncoded 03/24/18 06:24 - Home Medications Home Medications: Ambulatory Orders Amlodipine Besylate [Norvasc -] 5 mg PO DAILY 11/04/15 Aspirin [ASA -] 81 mg PO DAILY 11/04/15 Levothyroxine [Synthroid -] 88 mcg PO DAILY 11/04/15 Acetaminophen [Tylenol .Extra-Strength -] 500 mg PO Q6H PRN tablet 03/30/18 Sennosides [Senna -] 1 tab PO HS PRN #30 tablet 03/31/18 Family Disease History - Family Disease History Family Disease History: Heart Disease: Mother, CA: Father Review of Systems - Review of Systems Constitutional: reports: Loss of Appetite Eyes: reports: No Symptoms HENT: reports: No Symptoms Neck: reports: No Symptoms Cardiovascular: reports: No Symptoms Respiratory: reports: No Symptoms Gastrointestinal: reports: Abdominal Pain Genitourinary: reports: No Symptoms Breasts: reports: No Symptoms Reported Musculoskeletal: reports: No Symptoms Integumentary: reports: Erythema, Rash (insect bites x3 to posterior calf region ) Neurological: reports: No Symptoms Endocrine: reports: No Symptoms Hematology/Lymphatic: reports: No Symptoms Psychiatric: reports: No Symptoms Physical Examination Vital Signs: Vital Signs Temperature 98.2 F 04/19/18 21:45 Pulse Rate 72 04/19/18 21:45 Respiratory Rate 18 04/19/18 21:45 Blood Pressure 143/86 04/19/18 21:45 O2 Sat by Pulse Oximetry (%) 97 04/19/18 21:45 Constitutional: Yes: Well Nourished, No Distress, Calm Eyes: Yes: WNL, Conjunctiva Clear, EOM Intact, PERRL HENT: Yes: WNL, Atraumatic, Normocephalic Neck: Yes: WNL, Supple, Trachea Midline Cardiovascular: Yes: WNL, Regular Rate and Rhythm, S1, S2 Respiratory: Yes: WNL, Regular, CTA Bilaterally Gastrointestinal: Yes: Normal Bowel Sounds, Soft, Abdomen, Obese, Tenderness ( RMQ) ...Rectal Exam: Yes: Deferred Renal/: Yes: WNL Breast(s): Yes: WNL Musculoskeletal: Yes: WNL Extremities: Yes: WNL Edema: No Peripheral Pulses WNL: Yes Integumentary: Yes: Erythema, Rash Neurological: Yes: WNL, Alert, Oriented, Cran Nerves II-XII Intact ...Motor Strength: WNL Psychiatric: Yes: WNL, Alert, Oriented Labs: CBC, BMP 04/19/18 16:10 04/19/18 16:10 Imaging - Results Cat Scan: Report Reviewed, Image Reviewed Problem List - Problems (1) Abdominal pain Code(s): R10.9 - UNSPECIFIED ABDOMINAL PAIN Qualifiers: Abdominal location: unspecified location Qualified Code(s): R10.9 - Unspecified abdominal pain (2) ASHD (arteriosclerotic heart disease) Code(s): I25.10 - ATHSCL HEART DISEASE OF [place] CORONARY ARTERY W/O ANG PCTRS (3) Asthma Code(s): J45.909 - UNSPECIFIED ASTHMA, UNCOMPLICATED Qualifiers: Asthma severity: unspecified severity Asthma complication type: uncomplicated (4) Hypertension Code(s): I10 - ESSENTIAL (PRIMARY) HYPERTENSION (5) Hypothyroid Code(s): E03.9 - HYPOTHYROIDISM, UNSPECIFIED Assessment/Plan 67 y/o woman admitted for Abdominal Pain, Post Op Abscess for further evaluation of their emergent condition. Plan: 1. Abdominal Pain - s/p Appendicitis - CTAP showed- compared to prior study 03/30/18 almost complete interval of a fluid collection. unchanged two adjacent 1.5cm right mid pelvic fluid structures are noted which may represent persistant fluid collections and or ovarian cysts, area of cholelithiasis without acute cholecystitis, small umbilical hernia containing fat only -Appreciate Surgical consult - Metronidazole , Levofloxacin given in ED, will continue - Gentle IVF - Clears as tolerated - Morphine Sulfate prn - Monitor CBC, BMP - Monitor vitals 2. HTN - stable - monitor BP - continue home meds 3. CAD - stable -continue home meds 4. HLD - continue statin 5.Hypothyroid - Continue home med 6. Asthma - stable - Albuterol neb prn 7. FEN - PO Fluids - Replete lyte prn - Clear Diet advance as tolerated 8. DVT ppx - OOB - SCDs - Heparin SQ Code Status: Full Code Dispo: Requires Inpatient Care Visit type - Emergency Visit Emergency Visit: Yes ED Registration Date: 04/19/18 Care time: The patient presented to the Emergency Department on the above date and was hospitalized for further evaluation of their emergent condition. - New Patient This patient is new to me today: Yes Date on this admission: 04/19/18 - Critical Care Critical Care patient: No Hospitalist Screening - Colonoscopy Questionnaire Colonoscopy Questionnaire: Colonoscopy Questionnaire - Patient: 50 - 75 years old and never had a screening colonoscopy: No History of colon or rectal polyps, or CA: No History of IBD, Crohn's disease or UC: No History of abdominal radiation therapy as a child: No - Relative: 1 with colon or rectal CA, or polyps at age 60 or younger: No Colon or rectal CA diagnosed at age 45 or younger: No Multiple relatives with colon or rectal CA: No - Outcome: Screening Result: Negative Screen
[2018-04-19] MEDS: HEPARIN NA (PORCINE) 5,000 UNITS/ML 1ML VIAL SQ SCH (22:57)
[2018-04-19] MEDS: DEXTROSE 5%-0.45% SALINE 1,000 ML IV SCH (23:08)
[2018-04-19] MEDS: NYSTATIN POWDER 100,000 UNITS/GM - 15 GM TOPICAL POWDER TP SCH (23:12)
[2018-04-19] MEDS: SENNOSIDES 8.6MG TABLET (FP) PO PRN (23:16)
[2018-04-20] MEDS: LEVOTHYROXINE NA 88 MCG TABLET (FP) PO SCH (06:18)
[2018-04-20] MEDS: oxyCODONE HCL 5 MG TABLET PO PRN ×3 (06:48→23:39)
[2018-04-20 07:29] LABS: BASO % 0.8 % (0-2.0); HEMATOCRIT 39.9 % (32.4-45.2); HEMOGLOBIN 13.2 GM/dL (10.7-15.3); LYMPH % 26.7 % (8-40); MCH 27.7 pg (25.7-33.7); MCHC 33.2 g/dl (32.0-36.0); MEAN CELL VOLUME 83.5 fl (80-96); MEAN PLT VOLUME 8.7 fl (7.5-11.1); MONO % 10.2 % (3.8-10.2); NEUT % 60.3 % (42.8-82.8); PLATELET COUNT 192 K/MM3 (134-434); RBC 4.77 M/mm3 (3.60-5.2); RDW 16.9 % (11.6-15.6)
[2018-04-20 07:30] LABS: ALBUMIN 3.2 g/dl (3.4-5.0); ANION GAP 7 (8-16); BLOOD UREA NITROGEN 5 mg/dL (7-18); CALCIUM 9.3 mg/dL (8.5-10.1); CHLORIDE 101 mmol/L (98-107); CO2 31 mmol/L (21-32); CREATININE 0.7 mg/dL (0.55-1.02); GLUCOSE,RANDOM 97 mg/dL (74-106); POTASSIUM 4.4 mmol/L (3.5-5.1); SGOT/AST 24 U/L (15-37); SGPT/ALT 23 U/L (12-78); SODIUM 139 mmol/L (136-145)
[2018-04-20 07:32] LABS: ALK PHOS 66 U/L (45-117); BILIRUBIN,TOTAL 0.3 mg/dL (0.2-1.0); TOT PROT 7.5 g/dl (6.4-8.2)
[2018-04-20] MEDS ORDERED: SIMETHICONE 80 MG TAB.CHEW (FP) PO PRN (09:11)
--- NOTE | 2018-04-20 09:31 | PN ---
Progress Note, Physician Chief Complaint: abdominal pain History of Present Illness: 67yo female PMH HTN, HLD, CAD, kidney stones, asthma, and hypothyroidism s/p lap appendectomy for a perforated appendicitis 03/24/18. She was treated for intra-abdominal collections for a week with IV antibiotics, discharged on . She was see on 04/18/18 in surgery clinic and was recommended to include probiotic. She appears very stable overnight. - Current Medication List Current Medications: Active Medications Amlodipine Besylate (Norvasc -) 5 mg PO DAILY [facility] Aspirin (Asa -) 81 mg PO DAILY [facility] Heparin Sodium (Porcine) (Heparin -) 5,000 unit SQ BID [facility] Last Admin: 04/19/18 22:57 Dose: 5,000 unit Dextrose/Sodium Chloride (D5-1/2ns -) 1,000 mls @ 42 mls/hr IV ASDIR [facility] Last Admin: 04/19/18 23:08 Dose: 42 mls/hr Metronidazole (Flagyl 500mg Premixed Ivpb -) 500 mg in 100 mls @ 100 mls/hr IVPB Q8H-IV [facility] Last Admin: 04/20/18 04:00 Dose: 100 mls/hr Levofloxacin (Levaquin 750 Mg Premixed Ivpb -) 750 mg in 150 mls @ 100 mls/hr IVPB DAILY [facility]; Protocol Lactobacillus Acidophilus (Bacid -) 1 tab PO DAILY [facility] Levothyroxine Sodium (Synthroid -) 88 mcg PO 0700 [facility] Last Admin: 04/20/18 06:18 Dose: 88 mcg Nystatin (Nystop Powder -) 1 applic TP DAILY [facility] Last Admin: 04/19/18 23:12 Dose: 1 applic Oxycodone HCl (Roxicodone -) 5 mg PO Q6H PRN PRN Reason: PAIN LEVEL 7 - 10 Last Admin: 04/20/18 06:48 Dose: 5 mg Senna (Senna -) 1 tab PO HS PRN PRN Reason: CONSTIPATION Last Admin: 04/19/18 23:16 Dose: 1 tab Simethicone (Mylicon -) 80 mg PO Q4H PRN PRN Reason: GAS - Objective Vital Signs: Vital Signs Temperature 98.7 F 04/20/18 06:46 Pulse Rate 72 04/20/18 06:46 Respiratory Rate 21 04/20/18 06:46 Blood Pressure 137/78 04/20/18 06:46 O2 Sat by Pulse Oximetry (%) 97 04/19/18 21:45 Vital Signs Period Temp Pulse Resp BP Sys/Dai Pulse Ox Last 24 Hr 98.0 F-98.8 F 61-79 16-21 118-143/63-86 96-99 Constitutional: Yes: Well Nourished, No Distress, Calm, Obese Eyes: Yes: Conjunctiva Clear, EOM Intact HENT: Yes: Atraumatic, Normocephalic Neck: Yes: Supple, Trachea Midline Cardiovascular: Yes: Regular Rate and Rhythm, S1, S2 Respiratory: Yes: Regular, CTA Bilaterally Gastrointestinal: Yes: Normal Bowel Sounds, Soft, Abdomen, Obese. No: Tenderness, Tenderness, Epigastrium, Tenderness, Rebound ...Rectal Exam: Yes: Deferred Genitourinary: No: CVA Tenderness - Left, CVA Tenderness - Right Extremities: No: Cool, Cyanosis Wound/Incision: Yes: Clean/Dry, Well Approximated, Open to air Neurological: Yes: Alert, Oriented Psychiatric: Yes: Alert, Oriented Labs: CBC, BMP 04/20/18 06:10 04/20/18 06:10 INR, PTT INR 1.04 (0.82-1.09) 04/19/18 16:10 Problem List - Problems (1) Intra-abdominal abscess post-procedure Assessment/Plan: 67 yo female MMP s/p Lap appendectomy for perforated appendicitis complicated by an intra-abdominal collection. She now has a variety of complaints about bowel habits and abdominal discomfort despite incremental improvement of the collection on repeat imaging. She does not need any further surgical intervention. Collections do not require IR drainage discussed with Dr. Ybarra. Advance diet as tolerated IVF hyration ID consultation Probiotics symptomatic treatment (anagesia, simethicone, etc.) She can followup in surgery clinic 1 month following discharge will follow peripherally Code(s): T81.4XXA - INFECTION FOLLOWING A PROCEDURE, INITIAL ENCOUNTER; K65.1 - PERITONEAL ABSCESS Qualifiers: Encounter type: subsequent encounter Qualified Code(s): T81.4XXD - Infection following a procedure, subsequent encounter; K65.1 - Peritoneal abscess (2) Perforated appendicitis Code(s): K35.2 - ACUTE APPENDICITIS WITH GENERALIZED PERITONITIS (3) Pain Code(s): R52 - PAIN, UNSPECIFIED (4) Abdominal pain Code(s): R10.9 - UNSPECIFIED ABDOMINAL PAIN Qualifiers: Abdominal location: unspecified location Qualified Code(s): R10.9 - Unspecified abdominal pain (5) Asthma Code(s): J45.909 - UNSPECIFIED ASTHMA, UNCOMPLICATED Qualifiers: Asthma severity: unspecified severity Asthma complication type: uncomplicated (6) Constipation Code(s): K59.00 - CONSTIPATION, UNSPECIFIED Qualifiers: Constipation type: unspecified constipation type Qualified Code(s): K59.00 - Constipation, unspecified
[2018-04-20] MEDS: HEPARIN NA (PORCINE) 5,000 UNITS/ML 1ML VIAL SQ SCH ×2 (09:58→21:18)
[2018-04-20] MEDS: amLODIPine BESYLATE 5 MG TABLET (FP) PO SCH (09:59)
[2018-04-20] MEDS: ASPIRIN 81 MG CHEWABLE TABLETS PO SCH (09:59)
[2018-04-20] MEDS: NYSTATIN POWDER 100,000 UNITS/GM - 15 GM TOPICAL POWDER TP SCH (09:59)
--- NOTE | 2018-04-20 11:35 | EKG ---
Test Reason : Blood Pressure : / mmHG Vent. Rate : 064 BPM Atrial Rate : 064 BPM P-R Int : 160 ms QRS Dur : 096 ms QT Int : 434 ms P-R-T Axes : 071 -51 051 degrees QTc Int : 447 ms NORMAL SINUS RHYTHM WITH SINUS ARRHYTHMIA LEFT AXIS DEVIATION INCOMPLETE RIGHT BUNDLE BRANCH BLOCK CANNOT RULE OUT ANTERIOR INFARCT , AGE UNDETERMINED ABNORMAL ECG WHEN COMPARED WITH ECG OF 25-MAR-2018 14:35, MINIMAL CRITERIA FOR ANTERIOR INFARCT ARE NOW PRESENT NO SIGNIFICANT CHANGE WAS FOUND Confirmed by MERRILL GARCIA, MARILU ([id number]) on 04/20/2018 11:34:32 AM Referred By: Confirmed By:MARILU MOMIN MD
[2018-04-20] MEDS: LACTOBACILLUS ACIDOPHILUS 1 TABLET PO SCH (12:53)
--- NOTE | 2018-04-20 13:04 | PN ---
Progress Note, Physician Chief Complaint: 67 y/o woman PMHx of HTN, HLD, CAD, Asthma. Hypothyroidism, Renal Stones, Appendectomy (03/24/18). Who presents to the ED with abdominal pain x 4 days. The patient states she had surgery for a ruptured appendicitis on 03/24/[address] Mcmanus. The patient states after the surgery she was kept for 8 days and placed on IV antibiotics. She was discharged on a course of Augmentin which she has finished. Pt denies any fevers but reports diffuse pain that is more severe in the RLQ - Current Medication List Current Medications: Active Medications Amlodipine Besylate (Norvasc -) 5 mg PO DAILY [facility] Last Admin: 04/20/18 09:59 Dose: 5 mg Aspirin (Asa -) 81 mg PO DAILY [facility] Last Admin: 04/20/18 09:59 Dose: 81 mg Heparin Sodium (Porcine) (Heparin -) 5,000 unit SQ BID [facility] Last Admin: 04/20/18 09:58 Dose: 5,000 unit Dextrose/Sodium Chloride (D5-1/2ns -) 1,000 mls @ 42 mls/hr IV ASDIR [facility] Last Admin: 04/19/18 23:08 Dose: 42 mls/hr Metronidazole (Flagyl 500mg Premixed Ivpb -) 500 mg in 100 mls @ 100 mls/hr IVPB Q8H-IV [facility] Last Admin: 04/20/18 09:59 Dose: 100 mls/hr Levofloxacin (Levaquin 750 Mg Premixed Ivpb -) 750 mg in 150 mls @ 100 mls/hr IVPB DAILY [facility]; Protocol Lactobacillus Acidophilus (Bacid -) 1 tab PO DAILY [facility] Last Admin: 04/20/18 12:53 Dose: 1 tab Levothyroxine Sodium (Synthroid -) 88 mcg PO 0700 [facility] Last Admin: 04/20/18 06:18 Dose: 88 mcg Nystatin (Nystop Powder -) 1 applic TP DAILY [facility] Last Admin: 04/20/18 09:59 Dose: 1 applic Oxycodone HCl (Roxicodone -) 5 mg PO Q6H PRN PRN Reason: PAIN LEVEL 7 - 10 Last Admin: 04/20/18 06:48 Dose: 5 mg Senna (Senna -) 1 tab PO HS PRN PRN Reason: CONSTIPATION Last Admin: 04/19/18 23:16 Dose: 1 tab Simethicone (Mylicon -) 80 mg PO Q4H PRN PRN Reason: GAS - Objective Vital Signs: Vital Signs Temperature 98.5 F 04/20/18 09:55 Pulse Rate 74 04/20/18 09:55 Respiratory Rate 20 04/20/18 09:55 Blood Pressure 131/80 04/20/18 09:55 O2 Sat by Pulse Oximetry (%) 97 04/19/18 21:45 Constitutional: Yes: Calm Cardiovascular: Yes: Regular Rate and Rhythm, S1, S2 Respiratory: Yes: CTA Bilaterally Gastrointestinal: Yes: Normal Bowel Sounds, Other (RLQ tenderness) Edema: No Integumentary: Yes: Rash (on the posterior calf of left leg target lesion noted) Neurological: Yes: Alert, Oriented Labs: CBC, BMP 04/20/18 06:10 04/20/18 06:10 INR, PTT INR 1.04 (0.82-1.09) 04/19/18 16:10 Problem List - Problems (1) Intra-abdominal abscess post-procedure Assessment/Plan: ct scan noted- slight improvement surgery on board iv abx ID consult advance diet to full liquid diet probiotics pain control Code(s): T81.4XXA - INFECTION FOLLOWING A PROCEDURE, INITIAL ENCOUNTER; K65.1 - PERITONEAL ABSCESS Qualifiers: Encounter type: subsequent encounter Qualified Code(s): T81.4XXD - Infection following a procedure, subsequent encounter; K65.1 - Peritoneal abscess (2) Hypothyroid Assessment/Plan: tsh ordered synthroid Code(s): E03.9 - HYPOTHYROIDISM, UNSPECIFIED
--- NOTE | 2018-04-20 16:29 | PN ---
Progress Note (short form) - Note Progress Note: ID Consult dictated POD #27 laparoscopic appendectomy S/P intraabdominal abscesses Observe off antibiotics
[2018-04-20] MEDS: SENNOSIDES 8.6MG TABLET (FP) PO PRN (21:18)
[2018-04-20] MEDS: MUPIROCIN 2% TOPICAL OINTMENT 22 GM TUBE TP SCH (22:14)
[2018-04-20] MEDS: DEXTROSE 5%-0.45% SALINE 1,000 ML IV SCH (23:42)
--- NOTE | 2018-04-21 05:18 | PN ---
Progress Note, Physician Chief Complaint: abdominal pain History of Present Illness: 67yo female PMH HTN, HLD, CAD, kidney stones, asthma, and hypothyroidism s/p lap appendectomy for a perforated appendicitis 03/24/18. She was treated for intra-abdominal collections for a week with IV antibiotics, discharged on . She was see on 04/18/18 in surgery clinic and was recommended to include probiotic. Abdominal pain is improving. She has her usual complaints and report feeling hungry. - Current Medication List Current Medications: Active Medications Amlodipine Besylate (Norvasc -) 5 mg PO DAILY [facility] Last Admin: 04/20/18 09:59 Dose: 5 mg Aspirin (Asa -) 81 mg PO DAILY [facility] Last Admin: 04/20/18 09:59 Dose: 81 mg Heparin Sodium (Porcine) (Heparin -) 5,000 unit SQ BID [facility] Last Admin: 04/20/18 21:18 Dose: Not Given Dextrose/Sodium Chloride (D5-1/2ns -) 1,000 mls @ 42 mls/hr IV ASDIR [facility] Last Admin: 04/20/18 23:42 Dose: 42 mls/hr Lactobacillus Acidophilus (Bacid -) 1 tab PO DAILY [facility] Last Admin: 04/20/18 12:53 Dose: 1 tab Levothyroxine Sodium (Synthroid -) 88 mcg PO 0700 [facility] Last Admin: 04/20/18 06:18 Dose: 88 mcg Mupirocin (Bactroban 2% Ointment -) 1 applic TP BID [facility] Last Admin: 04/20/18 22:14 Dose: 1 applic Nystatin (Nystop Powder -) 1 applic TP DAILY [facility] Last Admin: 04/20/18 09:59 Dose: 1 applic Oxycodone HCl (Roxicodone -) 5 mg PO Q6H PRN PRN Reason: PAIN LEVEL 7 - 10 Last Admin: 04/20/18 23:39 Dose: 5 mg Senna (Senna -) 1 tab PO HS PRN PRN Reason: CONSTIPATION Last Admin: 04/20/18 21:18 Dose: 1 tab Simethicone (Mylicon -) 80 mg PO Q4H PRN PRN Reason: GAS Last Admin: 04/20/18 16:48 Dose: 80 mg - Objective Vital Signs: Vital Signs Temperature 98.7 F 04/20/18 21:22 Pulse Rate 80 07/27/18 21:22 Respiratory Rate 20 04/20/18 21:22 Blood Pressure 134/80 04/20/18 21:22 O2 Sat by Pulse Oximetry (%) 97 04/20/18 22:00 Vital Signs Period Temp Pulse Resp BP Sys/Dai Pulse Ox Last 24 Hr 98.4 F-98.7 F 70-80 20-21 109-137/68-80 97 Intake & Output 04/20/18 04/20/18 04/21/18 15:59 23:59 07:59 Intake Total 280 775 Balance 280 775 Intake: IV 475 D5-1/2Ns - 1,000 ml @ 42 475 mls/hr IV ASDIR [facility] Rx#: [id number] IVPB 100 Oral 280 200 Other: Voiding Method Toilet Toilet # Unmeasured Voids Void 1 2 Bowel Movement No No No Constitutional: Yes: No Distress, Calm, Obese Eyes: Yes: Conjunctiva Clear, EOM Intact HENT: Yes: Atraumatic, Normocephalic Neck: Yes: Supple, Trachea Midline Cardiovascular: Yes: Regular Rate and Rhythm, S1, S2 Respiratory: Yes: Regular, CTA Bilaterally Gastrointestinal: Yes: Normal Bowel Sounds, Soft, Abdomen, Obese, Distention. No: Tenderness, Tenderness, Epigastrium, Tenderness, Rebound ...Rectal Exam: Yes: Deferred Genitourinary: No: CVA Tenderness - Left, CVA Tenderness - Right Musculoskeletal: No: Muscle Pain, Muscle Weakness Extremities: No: Cool, Cyanosis Edema: No Peripheral Pulses WNL: Yes Peripheral Pulses: Left Doralis Pedis: 2+, Right Dorsalis Pedis: 2+ Wound/Incision: Yes: Clean/Dry, Well Approximated, Open to air Neurological: Yes: Alert, Oriented Psychiatric: Yes: Alert, Oriented Labs: CBC, BMP 04/20/18 06:10 04/20/18 06:10 INR, PTT INR 1.04 (0.82-1.09) 04/19/18 16:10 Problem List - Problems (1) Intra-abdominal abscess post-procedure Assessment/Plan: 67 yo female MMP s/p Lap appendectomy for perforated appendicitis complicated by an intra-abdominal collection. She now has a variety of complaints about bowel habits and abdominal discomfort despite incremental improvement of the collection on repeat imaging. She does not need any further surgical intervention. Collections do not require IR drainage discussed with Dr. Ybarra. No need for antibiotics. Regular diet IVF hyration Probiotics symptomatic treatment (anagesia, simethicone, etc.) She can followup in surgery clinic 1 month following discharge Consider discharge home will follow peripherally Code(s): T81.4XXA - INFECTION FOLLOWING A PROCEDURE, INITIAL ENCOUNTER; K65.1 - PERITONEAL ABSCESS Qualifiers: Encounter type: subsequent encounter Qualified Code(s): T81.4XXD - Infection following a procedure, subsequent encounter; K65.1 - Peritoneal abscess (2) Perforated appendicitis Code(s): K35.2 - ACUTE APPENDICITIS WITH GENERALIZED PERITONITIS (3) Pain Code(s): R52 - PAIN, UNSPECIFIED (4) Abdominal pain Code(s): R10.9 - UNSPECIFIED ABDOMINAL PAIN Qualifiers: Abdominal location: unspecified location Qualified Code(s): R10.9 - Unspecified abdominal pain (5) Asthma Code(s): J45.909 - UNSPECIFIED ASTHMA, UNCOMPLICATED Qualifiers: Asthma severity: unspecified severity Asthma complication type: uncomplicated (6) Constipation Code(s): K59.00 - CONSTIPATION, UNSPECIFIED Qualifiers: Constipation type: unspecified constipation type Qualified Code(s): K59.00 - Constipation, unspecified
[2018-04-21] MEDS: LEVOTHYROXINE NA 88 MCG TABLET (FP) PO SCH (06:01)
[2018-04-21] MEDS: oxyCODONE HCL 5 MG TABLET PO PRN ×3 (08:19→23:11)
[2018-04-21] MEDS: LACTOBACILLUS ACIDOPHILUS 1 TABLET PO SCH ×2 (09:45→21:35)
[2018-04-21] MEDS: ASPIRIN 81 MG CHEWABLE TABLETS PO SCH (09:45)
[2018-04-21] MEDS: amLODIPine BESYLATE 5 MG TABLET (FP) PO SCH (09:46)
[2018-04-21] MEDS: HEPARIN NA (PORCINE) 5,000 UNITS/ML 1ML VIAL SQ SCH ×2 (09:46→21:35)
[2018-04-21] MEDS: NYSTATIN POWDER 100,000 UNITS/GM - 15 GM TOPICAL POWDER TP SCH (10:29)
[2018-04-21] MEDS: MUPIROCIN 2% TOPICAL OINTMENT 22 GM TUBE TP SCH ×2 (12:00→23:07)
[2018-04-21] MEDS ORDERED: MAGNESIUM HYDROX 2400MG/30ML ORAL SUSPENSION 30 ML CUP PO ONE (13:17)
--- NOTE | 2018-04-21 13:25 | PN ---
Progress Note, Physician Chief Complaint: Abdominal pain History of Present Illness: NAD c/o Suprapubic and RLQ,LLQ pain C/o unable to pass gas and have BM - Current Medication List Current Medications: Active Medications Amlodipine Besylate (Norvasc -) 5 mg PO DAILY [facility] Last Admin: 04/21/18 09:46 Dose: 5 mg Aspirin (Asa -) 81 mg PO DAILY [facility] Last Admin: 04/21/18 09:45 Dose: 81 mg Heparin Sodium (Porcine) (Heparin -) 5,000 unit SQ BID [facility] Last Admin: 04/21/18 09:46 Dose: 5,000 unit Lactobacillus Acidophilus (Bacid -) 1 tab PO BID [facility] Levothyroxine Sodium (Synthroid -) 88 mcg PO 0700 [facility] Last Admin: 04/21/18 06:01 Dose: 88 mcg Mupirocin (Bactroban 2% Ointment -) 1 applic TP BID [facility] Last Admin: 04/20/18 22:14 Dose: 1 applic Nystatin (Nystop Powder -) 1 applic TP DAILY [facility] Last Admin: 04/21/18 10:29 Dose: 1 applic Oxycodone HCl (Roxicodone -) 5 mg PO Q6H PRN PRN Reason: PAIN LEVEL 7 - 10 Last Admin: 04/21/18 08:19 Dose: 5 mg Senna (Senna -) 1 tab PO HS PRN PRN Reason: CONSTIPATION Last Admin: 04/20/18 21:18 Dose: 1 tab Simethicone (Mylicon -) 80 mg PO Q4H [facility] - Objective Vital Signs: Vital Signs Temperature 99.2 F 04/21/18 10:00 Pulse Rate 85 04/21/18 10:00 Respiratory Rate 20 04/21/18 10:00 Blood Pressure 148/92 04/21/18 10:00 O2 Sat by Pulse Oximetry (%) 97 04/20/18 22:00 Constitutional: Yes: Well Nourished, No Distress, Calm Cardiovascular: Yes: Regular Rate and Rhythm Respiratory: Yes: Regular Gastrointestinal: Yes: Abdomen, Obese, Distention, Hyperactive Bowel Sounds, Tenderness (RLQ,LLQ) Musculoskeletal: Yes: WNL Extremities: Yes: WNL Edema: No Peripheral Pulses WNL: Yes Neurological: Yes: Alert, Oriented Psychiatric: Yes: Alert, Oriented Labs: CBC, BMP 04/20/18 06:10 07/27/18 06:10 INR, PTT INR 1.04 (0.82-1.09) 04/19/18 16:10 Problem List - Problems (1) Intra-abdominal abscess post-procedure Assessment/Plan: -CT abd/pelvis reviewed -Seen by Surgery -Abscess resolved Code(s): T81.4XXA - INFECTION FOLLOWING A PROCEDURE, INITIAL ENCOUNTER; K65.1 - PERITONEAL ABSCESS Qualifiers: Encounter type: subsequent encounter Qualified Code(s): T81.4XXD - Infection following a procedure, subsequent encounter; K65.1 - Peritoneal abscess (2) Abdominal pain Assessment/Plan: -Oxycodone 5 mg po Q6H PRN -Simethicone 80 mg Q6H standing dose -Bacid BID -Milk of magnesia Code(s): R10.9 - UNSPECIFIED ABDOMINAL PAIN Qualifiers: Abdominal location: unspecified location Qualified Code(s): R10.9 - Unspecified abdominal pain (3) Hypothyroid Assessment/Plan: -States that if she takes Levothyroxine 100 mcg daily, it gives her palpitations -Will follow schedule of 100 mcg 5 days/week and 88 mch 2 days/week and repeat TSH, FT4 in 4 weeks Code(s): E03.9 - HYPOTHYROIDISM, UNSPECIFIED Assessment/Plan see problem list DVT prophylaxis Self ambulatory Dispo: d/c home in AM
[2018-04-21] MEDS: SIMETHICONE 80 MG TAB.CHEW (FP) PO SCH ×3 (14:02→21:35)
[2018-04-21] MEDS: SENNOSIDES 8.6MG TABLET (FP) PO PRN (23:19)
[2018-04-22] MEDS: SIMETHICONE 80 MG TAB.CHEW (FP) PO SCH ×4 (00:19→09:23)
--- NOTE | 2018-04-22 05:30 | PN ---
Progress Note, Physician Chief Complaint: abdominal pain History of Present Illness: 67yo female PMH HTN, HLD, CAD, kidney stones, asthma, and hypothyroidism s/p lap appendectomy for a perforated appendicitis 03/24/18. She was treated for intra-abdominal collections for a week with IV antibiotics, discharged on . She was see on 04/18/18 in surgery clinic and was recommended to include probiotic. Abdominal pain is improving. She has her usual complaints and report feeling hungry. - Current Medication List Current Medications: Active Medications Amlodipine Besylate (Norvasc -) 5 mg PO DAILY [facility] Last Admin: 04/21/18 09:46 Dose: 5 mg Aspirin (Asa -) 81 mg PO DAILY [facility] Last Admin: 04/21/18 09:45 Dose: 81 mg Heparin Sodium (Porcine) (Heparin -) 5,000 unit SQ BID [facility] Last Admin: 04/21/18 21:35 Dose: 5,000 unit Lactobacillus Acidophilus (Bacid -) 1 tab PO BID [facility] Last Admin: 04/21/18 21:35 Dose: 1 tab Levothyroxine Sodium (Synthroid -) 100 mcg PO DAILY@0700 [facility] Mupirocin (Bactroban 2% Ointment -) 1 applic TP BID [facility] Last Admin: 04/21/18 23:07 Dose: 1 applic Nystatin (Nystop Powder -) 1 applic TP DAILY [facility] Last Admin: 04/21/18 10:29 Dose: 1 applic Oxycodone HCl (Roxicodone -) 5 mg PO Q6H PRN PRN Reason: PAIN LEVEL 7 - 10 Last Admin: 04/21/18 23:11 Dose: 5 mg Senna (Senna -) 1 tab PO HS PRN PRN Reason: CONSTIPATION Last Admin: 04/21/18 23:19 Dose: 1 tab Simethicone (Mylicon -) 80 mg PO Q4H [facility] Last Admin: 04/22/18 00:19 Dose: 80 mg - Objective Vital Signs: Vital Signs Temperature 99.0 F 04/21/18 21:49 Pulse Rate 73 04/21/18 21:49 Respiratory Rate 16 04/21/18 21:49 Blood Pressure 109/61 04/21/18 21:49 O2 Sat by Pulse Oximetry (%) 97 04/20/18 22:00 Vital Signs Period Temp Pulse Resp BP Sys/Dai Pulse Ox Last 24 Hr 98.8 F-99.2 F 73-85 16-20 109-148/61-92 Intake & Output 04/21/18 04/21/18 04/22/18 15:59 23:59 07:59 Intake Total 652 250 Balance 652 250 Intake: IV 252 D5-1/2Ns - 1,000 ml @ 42 252 mls/hr IV ASDIR JOSE Rx#: [id number] Oral 400 250 Other: Voiding Method Toilet Toilet # Unmeasured Voids Void 1 2 Bowel Movement No Constitutional: Yes: Well Nourished, No Distress, Calm, Obese Eyes: Yes: Conjunctiva Clear, EOM Intact HENT: Yes: Atraumatic, Normocephalic Neck: Yes: Supple, Trachea Midline Cardiovascular: Yes: Regular Rate and Rhythm, S1, S2 Respiratory: Yes: Regular, CTA Bilaterally Gastrointestinal: Yes: Normal Bowel Sounds, Soft, Abdomen, Obese, Tenderness. No: Tenderness, Epigastrium, Tenderness, Rebound Genitourinary: No: CVA Tenderness - Left, CVA Tenderness - Right Extremities: No: Cool, Cyanosis Edema: No Peripheral Pulses WNL: Yes Peripheral Pulses: Left Radial: 2+, Right Radial: 2+, Left Doralis Pedis: 2+, Right Dorsalis Pedis: 2+ Neurological: Yes: Alert, Oriented Psychiatric: Yes: Alert, Oriented Labs: CBC, BMP 04/20/18 06:10 04/20/18 06:10 INR, PTT INR 1.04 (0.82-1.09) 04/19/18 16:10 Problem List - Problems (1) Intra-abdominal abscess post-procedure Assessment/Plan: 67 yo female MMP s/p Lap appendectomy for perforated appendicitis complicated by an intra-abdominal collection. She now has a variety of complaints about bowel habits and abdominal discomfort despite incremental improvement of the collection on repeat imaging. She does not need any further surgical intervention. Collections do not require IR drainage discussed with Dr. Ybarra. No need for antibiotics. Regular diet IVF hyration Probiotics symptomatic treatment (anagesia, simethicone, etc.) She can followup in surgery clinic 1 month following discharge Consider discharge home will follow peripherally Code(s): T81.4XXA - INFECTION FOLLOWING A PROCEDURE, INITIAL ENCOUNTER; K65.1 - PERITONEAL ABSCESS Qualifiers: Encounter type: subsequent encounter Qualified Code(s): T81.4XXD - Infection following a procedure, subsequent encounter; K65.1 - Peritoneal abscess (2) Perforated appendicitis Code(s): K35.2 - ACUTE APPENDICITIS WITH GENERALIZED PERITONITIS (3) Pain Code(s): R52 - PAIN, UNSPECIFIED (4) Abdominal pain Code(s): R10.9 - UNSPECIFIED ABDOMINAL PAIN Qualifiers: Abdominal location: unspecified location Qualified Code(s): R10.9 - Unspecified abdominal pain (5) Asthma Code(s): J45.909 - UNSPECIFIED ASTHMA, UNCOMPLICATED Qualifiers: Asthma severity: unspecified severity Asthma complication type: uncomplicated (6) Constipation Code(s): K59.00 - CONSTIPATION, UNSPECIFIED Qualifiers: Constipation type: unspecified constipation type Qualified Code(s): K59.00 - Constipation, unspecified
[2018-04-22 06:14] VITALS: BP 126/62; PULSE 67; TEMP 98.2
[2018-04-22] MEDS ORDERED: LEVOTHYROXINE NA 100 MCG TABLET (FP) PO SCH (07:00)
--- NOTE | 2018-04-22 08:48 | PN ---
Progress Note, Physician Chief Complaint: Abdominal pain History of Present Illness: NAD c/o Suprapubic and RLQ,LLQ pain C/o unable to pass gas and have BM - Current Medication List Current Medications: Active Medications Amlodipine Besylate (Norvasc -) 5 mg PO DAILY [facility] Last Admin: 04/21/18 09:46 Dose: 5 mg Aspirin (Asa -) 81 mg PO DAILY [facility] Last Admin: 04/21/18 09:45 Dose: 81 mg Heparin Sodium (Porcine) (Heparin -) 5,000 unit SQ BID [facility] Last Admin: 04/21/18 21:35 Dose: 5,000 unit Lactobacillus Acidophilus (Bacid -) 1 tab PO BID [facility] Last Admin: 04/21/18 21:35 Dose: 1 tab Levothyroxine Sodium (Synthroid -) 100 mcg PO DAILY@0700 [facility] Last Admin: 04/22/18 06:10 Dose: 100 mcg Mupirocin (Bactroban 2% Ointment -) 1 applic TP BID [facility] Last Admin: 04/21/18 23:07 Dose: 1 applic Nystatin (Nystop Powder -) 1 applic TP DAILY [facility] Last Admin: 04/21/18 10:29 Dose: 1 applic Oxycodone HCl (Roxicodone -) 5 mg PO Q6H PRN PRN Reason: PAIN LEVEL 7 - 10 Last Admin: 04/21/18 23:11 Dose: 5 mg Senna (Senna -) 1 tab PO HS PRN PRN Reason: CONSTIPATION Last Admin: 04/21/18 23:19 Dose: 1 tab Simethicone (Mylicon -) 80 mg PO Q4HPO [facility] Last Admin: 04/22/18 05:43 Dose: Not Given - Objective Vital Signs: Vital Signs Temperature 98.2 F 04/22/18 06:00 Pulse Rate 67 04/22/18 06:00 Respiratory Rate 18 04/22/18 06:00 Blood Pressure 126/62 04/22/18 06:00 O2 Sat by Pulse Oximetry (%) 97 04/20/18 22:00 Constitutional: Yes: Well Nourished, No Distress, Calm Cardiovascular: Yes: Regular Rate and Rhythm Respiratory: Yes: Regular Gastrointestinal: Yes: Soft, Abdomen, Obese, Hyperactive Bowel Sounds Musculoskeletal: Yes: WNL Extremities: Yes: WNL Edema: No Peripheral Pulses WNL: Yes Neurological: Yes: Alert, Oriented Psychiatric: Yes: Alert, Oriented Labs: CBC, BMP 04/20/18 06:10 04/20/18 06:10 INR, PTT INR 1.04 (0.82-1.09) 04/19/18 16:10 Problem List - Problems (1) Intra-abdominal abscess post-procedure Assessment/Plan: -CT abd/pelvis reviewed -Seen by Surgery -Abscess resolved Code(s): T81.4XXA - INFECTION FOLLOWING A PROCEDURE, INITIAL ENCOUNTER; K65.1 - PERITONEAL ABSCESS Qualifiers: Encounter type: subsequent encounter Qualified Code(s): T81.4XXD - Infection following a procedure, subsequent encounter; K65.1 - Peritoneal abscess (2) Abdominal pain Assessment/Plan: -Oxycodone 5 mg po Q6H PRN -Simethicone 80 mg Q6H standing dose -Bacid BID -Milk of magnesia Code(s): R10.9 - UNSPECIFIED ABDOMINAL PAIN Qualifiers: Abdominal location: unspecified location Qualified Code(s): R10.9 - Unspecified abdominal pain (3) Hypothyroid Assessment/Plan: -States that if she takes Levothyroxine 100 mcg daily, it gives her palpitations -Will follow schedule of 100 mcg 5 days/week and 88 mch 2 days/week and repeat TSH, FT4 in 4 weeks Code(s): E03.9 - HYPOTHYROIDISM, UNSPECIFIED Assessment/Plan see problem list DVT prophylaxis Self ambulatory Dispo: d/c home
[2018-04-22] MEDS: amLODIPine BESYLATE 5 MG TABLET (FP) PO SCH (09:23)
[2018-04-22] MEDS: ASPIRIN 81 MG CHEWABLE TABLETS PO SCH (09:23)
[2018-04-22] MEDS: SENNOSIDES 8.6MG TABLET (FP) PO PRN (09:23)
[2018-04-22] MEDS: HEPARIN NA (PORCINE) 5,000 UNITS/ML 1ML VIAL SQ SCH (09:24)
[2018-04-22] MEDS: LACTOBACILLUS ACIDOPHILUS 1 TABLET PO SCH (09:24)
[2018-04-22] MEDS: MUPIROCIN 2% TOPICAL OINTMENT 22 GM TUBE TP SCH (09:29)
[2018-04-22] MEDS: NYSTATIN POWDER 100,000 UNITS/GM - 15 GM TOPICAL POWDER TP SCH (09:30)
[2018-04-22] MEDS: oxyCODONE HCL 5 MG TABLET PO PRN (10:24)
== END 2018-04-22 14:39 | disposition home or self-care (01) | DRG 862 ==
LOC: JER 13:35 → JERBED 20:53 → J6S 21:49
PROVIDERS: ADMIT Internal Medicine; ATTEND Family Medicine
DX: T81.4XXA Infection following a procedure, initial encounter (principal); K65.1 Peritoneal abscess; I25.10 Atherosclerotic heart disease of native coronary artery without angina pectoris; I10 Essential (primary) hypertension; Z68.34 Body mass index [BMI] 34.0-34.9, adult; E66.9 Obesity, unspecified; J45.909 Unspecified asthma, uncomplicated; E03.9 Hypothyroidism, unspecified; Z87.891 Personal history of nicotine dependence; Z88.0 Allergy status to penicillin; K59.00 Constipation, unspecified; Y83.8 Other surgical procedures as the cause of abnormal reaction of the patient, or of later complication, without mention of misadventure at the time of the procedure; E78.5 Hyperlipidemia, unspecified
CPT/HCPCS: 36415; 74177-TC; 80053; 81003; 81015; 83605; 83690; 84443; 85025; 85610; 85730; 86850; 86900; 86901; 87040; 87086; 93005; 93010; 99282-25; J0131; J1644; J7030

== ENCOUNTER 2018-07-11 09:10 | Day surgery (SDC) | payer OTHER ==
[2018-07-09 16:56] VITALS: BMI 35.2
--- NOTE | 2018-07-11 09:49 | HP ---
[facility] - Chief Complaint Chief Complaint: left knee pain - Past Medical History Allergies/Adverse Reactions: Allergies Allergy/AdvReac Type Severity Reaction Status Date / Time amoxicillin [Amoxicillin] Allergy Severe Rash Verified 03/24/18 06:24 Penicillins Allergy Severe Rash Verified 03/24/18 06:24 BURAK AdvReac Vomiting Uncoded 03/24/18 06:24 POLLOCK AdvReac Vomiting Uncoded 03/24/18 06:24 Cardiovascular: Yes: HTN Pulmonary: Yes: Asthma Gastrointestinal: Yes: Constipation Endocrine: Yes: Hypothyroidism - Current Medications Current Medications: Home Medications Medication Instructions Recorded Amlodipine Besylate [Norvasc -] 5 mg PO HS 11/04/15 Aspirin [ASA -] 81 mg PO DAILY 11/04/15 Levothyroxine [Synthroid -] 88 mcg PO ASDIR 11/04/15 Cholecalciferol (Vitamin D3) 1.25 unit PO WEEKLY 07/09/18 [Vitamin D -] Icosapent Ethyl [Vascepa] 2 gm PO BID 07/09/18 Levothyroxine [Synthroid -] 100 mcg PO ASDIR 07/09/18 Pitavastatin Calcium [Livalo] 4 mg PO DAILY 07/09/18 Oxycodone HCl/Acetaminophen 1 tab PO Q6H #20 tablet MDD 4 07/11/18 [Percocet 5-325 mg Tablet] [facility] Physical Exam - Physical Examination General Appearance: Well Nourished, Well Developed, Alert & Oriented x3 ENT: Clear Lung: Normal air movement Heart: Regular rate & rhythm Extremities: Other (left knee- +swelling, + ttp, decr rom, + mcmurrays, nvi MRI + mmt, djd) Neurological: Intact, Alert, Oriented [facility] Impression/Plan - Impression/Plan Impression: left knee internal derangement Operative Procedure: left knee arthroscopy Date to be Performed: 07/11/18
[2018-07-11] MEDS ORDERED: LIDOCAINE 1%/EPI 1:100000 (20 ML MULTI DOSE VIAL) ONE (10:56)
[2018-07-11] MEDS ORDERED: BUPIVACAINE HCL/PF 0.5% (5MG/ML) 10 ML VIAL ONE (10:57)
[2018-07-11] MEDS ORDERED: PROPOFOL 20 ML ONE (11:02)
[2018-07-11] MEDS ORDERED: MIDAZOLAM HCL 2 MG/2 ML SINGLE DOSE VIAL ONE (11:02)
[2018-07-11] MEDS ORDERED: DEXAMETHASONE SOD PHOSPHATE 4 MG/1 ML VIAL ONE (11:04)
[2018-07-11] MEDS ORDERED: ONDANSETRON 4 MG/2 ML VIAL IVPUSH PRN (11:26)
[2018-07-11] MEDS ORDERED: oxyCODONE HCL 5 MG TABLET PO PRN (11:26)
[2018-07-11] MEDS ORDERED: PROMETHAZINE HCL 25 MG/1 ML VIAL IVPUSH PRN (11:26)
[2018-07-11] MEDS ORDERED: LACTATED RINGERS SOLUTION 1,000 ML IV SCH (11:30)
[2018-07-11] MEDS ORDERED: BUPIVACAINE HCL/PF 0.5% (5MG/ML) 10 ML VIAL IJ ONE (11:33)
[2018-07-11] MEDS ORDERED: LIDOCAINE 1%/EPI 1:100000 (50 ML MULTI DOSE VIAL) PNB ONE (11:33)
--- NOTE | 2018-07-11 11:41 | OP ---
Operative Note - Note: Operative Date: 07/11/18 ([facility]) Pre-Operative Diagnosis: left knee internal derangement Operation: left knee arthroscopy with PMM, PLM Post-Operative Diagnosis: Same as Pre-op Surgeon: Eldon Anne Anesthesiologist/GOLD BUYER: Juan Bonner Anesthesia: General, Local Specimens Removed: shavings Estimated Blood Loss (mls): 5 Operative Report Dictated: Yes
[2018-07-11] MEDS ORDERED: oxyCODONE HCL 5 MG TABLET ONE (14:01)
--- NOTE | 2018-07-11 14:02 | OP ---
DATE OF OPERATION: 07/11/2018 PREOPERATIVE DIAGNOSIS: Internal derangement, left knee. POSTOPERATIVE DIAGNOSIS: Internal derangement, left knee. PROCEDURE: Left knee arthroscopy with partial medial and lateral meniscectomy. SURGEON: Eldon Anne MD ANESTHESIA: General with laryngeal mask anesthesia. CLOSURE: 4-0 nylon. COMPLICATIONS: None. CONDITION: To recovery room in stable condition. DESCRIPTION OF OPERATIVE PROCEDURE: The patient was taken to the operating room on July 11, 2018. General anesthesia with LMA was administered by the anesthesiologist. The lower extremity was prepped and draped in the usual sterile fashion. The media and lateral infrapatellar portals sites were infiltrated with 1% Xylocaine with epinephrine. Both portals were then made with a 15-blade. The scope was placed in the lateral infrapatellar portal and up into the suprapatellar pouch. The knee was inflated with a cocktail of 10 mL of 1% Xylocaine, 10 mL of 0.5% Marcaine, and 20 mL of arthroscopic saline. This was allowed to sit in the knee for 2 to 3 minutes to allow it to work and then we proceeded with the surgery. The undersurface of the patella and trochlea were visualized, probed, and found to be intact. The medial and lateral gutters were visualized and found to be intact as was the pouch with valgus stress. The medial compartment was entered. The posterior horn and mid portion was felt to be intact with a large amount of fibrous tissue anteriorly. The intermeniscal ligaments between the medial and lateral meniscus was found to be displaced more superiorly over the ACL. This was debrided both on the medial and the lateral meniscus side. The medial femoral condyle was run and found to be intact as was the medial tibial plateau. At 90 degrees the ACL was visualized, probed, and found to be intact. In the figure 4 position the lateral compartment was entered and the lateral meniscus posterior and then the medial portion were fine. The anterior portion again had that small flap from the intermeniscal ligament that was debrided. The rest of the meniscus was found to be intact. The lateral femoral condyle was visualized, probed, and found to be intact as well as the lateral tibial plateau. The knee was irrigated with copious amounts of irrigation. The portals were closed with 4-0 nylon. Prior to closure 20 mL of 0.5% Marcaine was infused using postoperative analgesia. Sterile pressure dressings were placed over the knee. The patient was awakened from anesthesia and transferred to the recovery room in stable condition. There were no complications. Estimated blood loss was negligible. Susan LEWIS/[id number]
[2018-07-11 14:20] VITALS: BP 119/66; PULSE 80; TEMP 97.9
--- NOTE | 2018-07-12 15:47 | PATH ---
Surgical Pathology Report Patient Name: GABRIELLE LOVE [facility]. Rec. #: [id number] /Age/Gender: 1950 (Age: 68) / F Account: [id number] Location: [facility] Taken: 07/11/2018 Received: 07/11/2018 Reported: 07/12/2018 Physicians: Eldon Anne M.D. Specimen(s) Received LEFT KNEE SHAVINGS Clinical History Left knee tear Final Diagnosis LEFT KNEE SHAVINGS: FRAGMENTS OF SYNOVIAL AND FIBROCARTILAGINOUS TISSUE SHOWING REACTIVE AND DEGENERATIVE CHANGE. Electronically Signed Cynthia Acosta M.D. Gross Description Received in formalin, labeled "left knee shavings," is a 5.0 x 4.0 x 0.3 cm. aggregate of morales-yellow soft tissue fragments. A electroplating sales representative portion is submitted in one cassette. /07/11/2018 saudi/07/11/2018
== END 2018-07-11 14:35 | disposition home or self-care (01) ==
LOC: JASU-SURG 09:10
PROVIDERS: ATTEND Orthopaedic Surgery
PROC: 0SBD4ZZ Excision of Left Knee Joint, Percutaneous Endoscopic Approach (ICD-10-PCS; 2018-07-11)
PROC: 0SBD4ZZ Excision of Left Knee Joint, Percutaneous Endoscopic Approach (ICD-10-PCS; principal; 2018-07-11 10:15)
DX: M23.8X2 Other internal derangements of left knee (principal)
CPT/HCPCS: 88304-TC; 94760

== ENCOUNTER 2020-11-24 17:44 | Observation (INO) | payer OTHER ==
[2020-11-24 18:04] VITALS: BMI 34.2
[2020-11-24 20:12] LABS: BASO % 1.1 % (0-2.0); EOS % 0.4 % (0-4.5); HEMATOCRIT 43.3 % (32.4-45.2); HEMOGLOBIN 14.2 GM/dL (10.7-15.3); LYMPH % 23.7 % (8-40); MCH 27.1 pg (25.7-33.7); MCHC 32.9 g/dl (32.0-36.0); MEAN CELL VOLUME 82.5 fl (80-96); MEAN PLT VOLUME 8.2 fl (7.5-11.1); MONO % 7.1 % (3.8-10.2); NEUT % 67.7 % (42.8-82.8); PLATELET COUNT 257 K/MM3 (134-434); RBC 5.25 M/mm3 (3.60-5.2); WHITE BLOOD COUNT 10.1 K/mm3 (4.0-10.0)
[2020-11-24 20:38] LABS: CHLORIDE 104 mmol/L (98-107); SODIUM 139 mmol/L (136-145)
[2020-11-24 20:40] LABS: CALCIUM 9.4 mg/dL (8.5-10.1)
[2020-11-24 20:41] LABS: ALBUMIN 3.6 g/dl (3.4-5.0); ANION GAP 7 MMOL/L (8-16); CO2 28 mmol/L (21-32); GLUCOSE,RANDOM 87 mg/dL (74-106); MAGNESIUM 2.1 mg/dL (1.8-2.4)
[2020-11-24 20:44] LABS: CREATININE 0.5 mg/dL (0.55-1.3); SGOT/AST 16 U/L (15-37); SGPT/ALT 20 U/L (13-61)
[2020-11-24 20:45] LABS: BILIRUBIN,TOTAL 0.3 mg/dL (0.2-1)
[2020-11-24 20:47] LABS: ALK PHOS 89 U/L (45-117)
[2020-11-24 22:58] LABS: EPI CELLS 24 /uL (0-25.1); HYALINE CASTS 0 /uL (0-3.1); PH,URINE 7.5 (5.0-8.0); URINE APPEARANCE CLEAR; URINE BACTERIA 367 /uL (0-1359); URINE BILIRUBIN NEGATIVE (NEGATIVE); URINE COLOR YELLOW; URINE GLUCOSE (UA) NEGATIVE (NEGATIVE); URINE KETONE NEGATIVE (NEGATIVE); URINE LEUK ESTERASE NEGATIVE (NEGATIVE); URINE NITRITE NEGATIVE (NEGATIVE); URINE PROTEIN NEGATIVE (NEGATIVE); URINE RBC 383 /uL (0-23.9); URINE UROBILINOGEN 0.2 mg/dL (0.2-1.0); URINE WBC 20 /uL (0-25.8)
[2020-11-24] MEDS ORDERED: MONTELUKAST NA 10 MG TABLET ONE (23:35)
[2020-11-25] MEDS ORDERED: ATORVASTATIN CA 10 MG TABLET (FP) PO ONE (00:25)
[2020-11-25] MEDS ORDERED: MONTELUKAST NA 10 MG TABLET PO ONE (00:26)
[2020-11-25] MEDS ORDERED: LEVOTHYROXINE NA 88 MCG TABLET (FP) PO SCH (07:00)
[2020-11-25 07:01] LABS: BASO % 0.6 % (0-2.0); EOS % 0.8 % (0-4.5); HEMATOCRIT 40.6 % (32.4-45.2); HEMOGLOBIN 13.2 GM/dL (10.7-15.3); LYMPH % 26.8 % (8-40); MCH 26.9 pg (25.7-33.7); MCHC 32.5 g/dl (32.0-36.0); MEAN CELL VOLUME 82.7 fl (80-96); MEAN PLT VOLUME 8.3 fl (7.5-11.1); MONO % 9.9 % (3.8-10.2); NEUT % 61.9 % (42.8-82.8); PLATELET COUNT 254 K/MM3 (134-434); RBC 4.91 M/mm3 (3.60-5.2); RDW 16.3 % (11.6-15.6); WHITE BLOOD COUNT 9.1 K/mm3 (4.0-10.0)
[2020-11-25 07:43] LABS: POTASSIUM 4.2 mmol/L (3.5-5.1)
[2020-11-25 07:59] LABS: CALCIUM 8.8 mg/dL (8.5-10.1)
[2020-11-25 08:00] LABS: ALBUMIN 3.2 g/dl (3.4-5.0); BLOOD UREA NITROGEN 13.8 mg/dL (7-18)
[2020-11-25 08:01] LABS: BILIRUBIN,TOTAL 0.4 mg/dL (0.2-1); TOT PROT 7.2 g/dl (6.4-8.2)
[2020-11-25 08:03] LABS: CREATININE 0.8 mg/dL (0.55-1.3)
[2020-11-25] MEDS ORDERED: ASPIRIN 81 MG CHEWABLE TABLETS ONE (08:47)
[2020-11-25] MEDS ORDERED: HYDROCHLOROTHIAZIDE 25 MG TABLET (FP) ONE (08:47)
[2020-11-25] MEDS ORDERED: dilTIAZem HCL 60 MG TABLET ONE (08:47)
[2020-11-25 09:43] VITALS: BP 135/74
[2020-11-25] MEDS ORDERED: HYDROCHLOROTHIAZIDE 25 MG TABLET (FP) PO SCH (10:00)
[2020-11-25] MEDS ORDERED: ASPIRIN 81 MG CHEWABLE TABLETS PO SCH (10:00)
[2020-11-25 15:18] VITALS: PULSE 71; TEMP 98.1
[2020-11-25] MEDS ORDERED: MONTELUKAST NA 10 MG TABLET PO SCH (22:00)
[2020-11-25] MEDS ORDERED: ATORVASTATIN CA 10 MG TABLET (FP) PO SCH (22:00)
[2020-11-26] MEDS ORDERED: LEVOTHYROXINE NA 100 MCG TABLET (FP) PO SCH (07:00)
== END 2020-11-25 15:30 | disposition home or self-care (01) ==
LOC: JER 17:44 → JERBED 23:07 → INTOOBSV 23:07
PROVIDERS: ADMIT Internal Medicine; ATTEND Family Medicine
DX: I10 Essential (primary) hypertension (principal); R00.2 Palpitations; R42 Dizziness and giddiness; J44.9 Chronic obstructive pulmonary disease, unspecified; E03.9 Hypothyroidism, unspecified; E78.5 Hyperlipidemia, unspecified; E66.9 Obesity, unspecified; Z68.34 Body mass index [BMI] 34.0-34.9, adult; Z88.0 Allergy status to penicillin; Z91.018 Allergy to other foods; R34 Anuria and oliguria; Z91.013 Allergy to seafood; Z88.8 Allergy status to other drugs, medicaments and biological substances
CPT/HCPCS: 36415; 71046-TC-FY; 71275-TC; 80053; 80061; 81003; 83721; 83735; 84443; 84484; 85025; 85379; 87086; 87186; 93005; 93010; 99285-25; C9803; G0378; Q9967; U0003

== ENCOUNTER 2020-11-28 09:09 | Emergency (ER) | payer OTHER ==
[2020-11-28 09:25] VITALS: BP 154/67; PULSE 60; TEMP 98.1; BMI 34.2
== END 2020-11-28 10:30 | disposition home or self-care (01) ==
LOC: JER 09:09
DX: R03.0 Elevated blood-pressure reading, without diagnosis of hypertension (principal)
CPT/HCPCS: 99283-25

== ENCOUNTER 2025-07-23 06:08 | Day surgery (SDC) | payer OTHER ==
[2025-07-22 12:26] VITALS: BMI 35.2
[2025-07-23] MEDS ORDERED: IBUPROFEN 400 MG TABLET (FP) PO PRN (08:36)
[2025-07-23] MEDS ORDERED: ACETAMINOPHEN 325 MG TABLET (FP) PO PRN (08:36)
[2025-07-23] MEDS ORDERED: LIDOCAINE HCL 1%, 10 MG/ML (20ML VIAL) ONE ×2 (10:34→11:47)
[2025-07-23] MEDS ORDERED: LIDOCAINE 1%/EPI 1:100000 (20 ML MULTI DOSE VIAL) ONE (11:18)
[2025-07-23] MEDS ORDERED: MIDAZOLAM HCL 2 MG/2 ML SINGLE DOSE VIAL ONE (12:29)
[2025-07-23] MEDS ORDERED: PROPOFOL 20 ML ONE (12:30)
[2025-07-23] MEDS ORDERED: LACTATED RINGERS SOLUTION 1,000 ML IV SCH (12:30)
[2025-07-23] MEDS ORDERED: LIDOCAINE HCL 2% 100 MG/5 ML DISP.SYRIN ONE (12:30)
[2025-07-23] MEDS ORDERED: ePHEDrine SULFATE 50 MG/1 ML AMPULE ONE (12:40)
[2025-07-23 15:34] VITALS: RESP 18; TEMP 98.2
[2025-07-23 16:01] VITALS: BP 111/55; PULSE 55
== END 2025-07-23 16:10 | disposition home or self-care (01) ==
LOC: JASU-SURG 06:08
PROVIDERS: ATTEND Obstetrics & Gynecology
PROC: 0U9LXZZ Drainage of Vestibular Gland, External Approach (ICD-10-PCS; principal; 2025-07-23 11:00)
DX: N75.0 Cyst of Bartholin's gland (principal)
CPT/HCPCS: 87070; 87205; 88304-TC; 94760